=== PATIENT | female | born 1945 | race Caucasian/White ===

== ENCOUNTER 2018-08-23 19:14 | Emergency (ER) | payer MEDICARE, SELFPAY ==
[2018-06-13 10:06] VITALS: BMI 28.9
[2018-08-23 19:31] VITALS: BP 142/84; PULSE 86; RESP 18; TEMP 38.4; O2SAT 97
[2018-08-23 21:22] VITALS: TEMP 37.8
== END 2018-08-23 21:32 | disposition left against medical advice (07) ==
LOC: ED 19:22
PROVIDERS: Family Provider Physician Assistant; PCP Physician Assistant
DX: T78.40XA Allergy, unspecified, initial encounter (principal)
CPT/HCPCS: 99281; 99282; G0424

== ENCOUNTER → 2018-11-25 09:22 | Outpatient (CLI) | payer MEDICARE, SELFPAY ==
[2018-06-13 10:06] VITALS: BMI 28.9
--- NOTE | 2018-11-25 08:15 | DI.MG.S_ITS ---
Patient Name: NICOLE HUSTON date: 1945 Sex: F Attending Physician: Jase Indications: Date: 11/25/2018 09:36 At the request of: EVIN AUGUSTE Procedure: MM screening mammo BI BILATERAL DIGITAL SCREENING MAMMOGRAM 3D/2D WITH CAD: 11/25/2018 CLINICAL: Routine screening. Comparison is made to exams dated: 02/28/2017 mammogram - [facility], 2011 mammogram, and 02/23/2011 mammogram - [facility] [place]. There are scattered fibroglandular elements in both breasts. Current study was also evaluated with a Computer Aided Detection (CAD) system. No significant masses, calcifications, or other findings are seen in either breast. There has been no significant interval change. IMPRESSION: NEGATIVE There is no mammographic evidence of malignancy. A 1 year screening mammogram is recommended. This exam was interpreted at Station ID: [id number]. NOTE: For mammograms, a report in lay terms will be sent to the patient. Approximately 15% of breast malignancies will not be visualized mammographically. In the management of a palpable breast mass, a negative mammogram must not discourage biopsy of a clinically suspicious lesion. Electronically Signed By: James ramos/rohit:11/25/2018 14:18:19 letter sent: Normal Exam ACR BI-RADS Category 1: Negative [id number]
== END ==
PROVIDERS: PCP Internal Medicine; Visit Provider Internal Medicine
DX: Z12.31 Encounter for screening mammogram for malignant neoplasm of breast (principal)
CPT/HCPCS: 77063; 77067

== ENCOUNTER → 2019-03-15 13:03 | Outpatient (CLI) | payer MEDICARE, SELFPAY ==
[2018-06-13 10:06] VITALS: BMI 28.9
== END ==
PROVIDERS: PCP Internal Medicine; Visit Provider Internal Medicine
DX: M85.852 Other specified disorders of bone density and structure, left thigh (principal); Z78.0 Asymptomatic menopausal state; Z87.891 Personal history of nicotine dependence
CPT/HCPCS: 77080

== ENCOUNTER → 2019-07-09 14:05 | Outpatient (CLI) | payer MEDICARE, SELFPAY ==
[2018-06-13 10:06] VITALS: BMI 28.9
--- NOTE | 2019-07-09 14:07 | DI.RAD.S_ITS ---
PROCEDURE: XR HIP W PEL IF DONE RT 2V INDICATIONS: Right hip pain TECHNIQUE: 2 views of the hip were acquired. COMPARISON: [facility], CR, HIP 2V RIGHT, 12/15/2010, 12:20. FINDINGS: Bones: No fractures or dislocations. No suspicious bony lesions. The visualized pelvic ring appears intact. There is a 1 cm sclerotic radiodensity overlying the left iliac wing, uncertain etiology and clinical significance. Soft tissues: No suspicious soft tissue calcifications or masses. IMPRESSION: No acute trauma found. Minimal hip joint osteoarthritis. Ovoid 1 cm sclerotic focus left iliac wing, middle third, with no prior studies that include this area. This likely is a bone island. Followup frontal view of the pelvis in 2 months to confirm stability of appearance over time is recommended. Dictated by: Yamil Rucker M.D. on 07/09/2019 at 15:16 Approved by: Yamil Rucker M.D. on 07/09/2019 at 15:39
== END ==
PROVIDERS: PCP Internal Medicine; Visit Provider Physical Medicine & Rehabilitation
DX: M25.859 Other specified joint disorders, unspecified hip (principal); M16.11 Unilateral primary osteoarthritis, right hip
CPT/HCPCS: 73502

== ENCOUNTER 2020-01-02 08:25 | Day surgery (SDC) | payer MEDICARE, SELFPAY ==
[2018-06-13 10:06] VITALS: BMI 28.9
--- NOTE | 2020-01-01 16:46 | PM.PREOP ---
Pre-operative Note Interval Note History & Physical reviewed/Exam performed by Physician: Yes Changes to H&P: No H&P completed within 30 days and has changed as indicated here:: Patient initially asked for general anesthesia but she is willing to try a retrobulbar block with a laryngeal mask airway back as needed. She is very relaxed today and care will be taken reduce as effects of claustrophobia.
--- NOTE | 2020-01-02 08:08 | PM.OP.1 ---
Operative Date/Time/Diagnoses Date of procedure: 01/02/20 Time of procedure: 09:45 Procedure & Clinicians Procedure: Preoperative diagnoses: 1. Left nuclear sclerotic and cortical cataract. 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 3. Anxiety and claustrophobia which may requirie general anesthesia Postoperative diagnoses: 1. Cataract removed by phacoemulsification with placement of posterior chamber intraocular lens. Procedure: Phacoemulsification with posterior chamber intraocular lens implant Surgeon: Marce Laguna MD Complications: None Specimen: None Implant: ZCBOO+14.5] Blood loss: None Anesthesia: Retrobulbar block planned with general with laryngeal mask airway for by patient request. If needed. Description of procedure: Patient presents with a complaint of decreased vision due to cataract which is affecting activities of daily living. She is a myope who desires distance correction after discussion of -0.5 target is selected to reduce her dependency on reading glasses. The patient wants surgery to improve vision. She has claustrophobia but is comfortable today and would like to try a retrobulbar anesthetic. The patient was taken to the operating room and given IV sedation. A retrobulbar block consisting of 6 cc of 2% xylocaine without epinephrine mixed half and half with 0.5% Marcaine with 1 cc of hyaluronidase added is placed between the medial and lateral 1/3 of the inferior orbital rim. The eye is manually massaged for 30 sec, prepped using Betadine solution, and draped in the usual sterile fashion. Temporal approach was made, a 1 mm side-port incision was made 90? from the proposed clear corneal incision position. Phenylephrine 1.5% mixed with 1% xylocaine 0.2 cc was placed into the anterior chamber. Viscoat followed by Johanna was then placed. A 2.6 mm clear incision with a 2.6 mm blade was placed. A 360 degree capsulorrhexis style capsulotomy was then performed with a cystitome needle on a Healon. The pseudoexfoliation was significant and there was a pupillary strands but all sinus held intact and a nice capsulorrhexis resulted of about 5.5 mm. Hydrodelineation and hydrodissection were performed. The phacoemulsification unit is introduced, and sculpting notice used to groove the central lens. It is then removed in chopping mode. Epi nucleus is removed with epinuclear mode and irrigation aspiration was used to remove the peripheral cortex. The posterior capsule is polished. The intraocular lens is selected, inspected, power confirmed, and placed in the posterior chamber. The wound was stromally hydrated and tested for leaks, there was none and it was left sutureless. Vigamox 0.1 cc was placed into the anterior chamber. Kenalog 0.2 cc was placed in the superior subconjunctival space. A drop of antibiotic and was placed and the eye was patched and shielded. The patient was stable and returned to the recovery room in excellent condition. She was very cooperative during the procedure no general anesthetic was required. Dictated by: Marce Laguna MD Copy to: [facility] Same procedure as scheduled: Yes
[2020-01-02] MEDS: PROPARACAINE 0.5% OPHTH SOL 2 DROPS EYE-OP (09:01)
[2020-01-02] MEDS: CATARACT EYE COMPOUND (10 DROPS/SYRINGE) 3 DROPS EYE-OP (09:03)
[2020-01-02 09:10] VITALS: BP 138/73; PULSE 68; RESP 16; TEMP 36.6; O2SAT 99; BMI 29.2
--- NOTE | 2020-01-02 09:37 | SUR.OPER ---
Supine on eye stretcher, head on extension cradle secured with tape. Arms tucked at sides with blanket. Pillow under knees.
[2020-01-02] MEDS: LACTATED RINGERS 1,000 ML 42 ML IV (09:45)
[2020-01-02] MEDS: MOXIFLOXACIN INJ 5 MG/ML VIAL EYE-OP (10:25)
[2020-01-02] MEDS: PHENYLEPHRINE/LIDOCAINE VIAL (OR) 0.2 ML EYE-OP (10:27)
[2020-01-02] MEDS: LIDOCAINE 2% 4 ML, BUPIVACAINE 0.5% (PF) 4 ML, HYALURONIDASE 150 UNIT INJ (10:28)
[2020-01-02] MEDS: TRIAMCINOLONE 50 MG/5 ML VIAL INJ (10:32)
[2020-01-02] MEDS: BALANCED SALT IRRIG SOLN NO.2 500 ML, EPINEPHrine 1 MG IRR (10:41)
[2020-01-02] MEDS: ERYTHROMYCIN OPHTH 1 GM OINT 1 APPLIC EYE-LEFT (10:45)
[2020-01-02 11:10] VITALS: BP 151/75; PULSE 60; RESP 16; TEMP 36.3; O2SAT 100
== END 2020-01-02 11:15 | disposition home or self-care (01) ==
PROVIDERS: PCP Internal Medicine; Referring Provider Ophthalmology; Visit Provider Ophthalmology
PROC: (CPT 66984; principal; 2020-01-02 09:45)
DX: H25.812 Combined forms of age-related cataract, left eye (principal); H26.8 Other specified cataract; F41.9 Anxiety disorder, unspecified; F40.240 Claustrophobia
CPT/HCPCS: 66984; J0171; J2704; J3301; J3470

== ENCOUNTER 2020-01-16 07:26 | Day surgery (SDC) | payer MEDICARE, SELFPAY ==
[2018-06-13 10:06] VITALS: BMI 28.9
--- NOTE | 2020-01-15 18:59 | PM.PREOP ---
Pre-operative Note Interval Note History & Physical reviewed/Exam performed by Physician: Yes Changes to H&P: No
[2020-01-16] MEDS: PROPARACAINE 0.5% OPHTH SOL 2 DROPS EYE-OP (08:05)
--- NOTE | 2020-01-16 08:08 | P.OP_ITS ---
Operative Date/Time/Diagnoses Date of procedure: 01/16/20 Time of procedure: 08:45 Procedure & Clinicians Procedure: Preoperative diagnoses: 1. Left nuclear sclerotic and cortical cataract. Postoperative diagnoses: 1. Cataract removed by phacoemulsification with placement of posterior chamber intraocular lens. 2. Depression. Procedure: Phacoemulsification with posterior chamber intraocular lens implant Surgeon: Marce Laguna MD Complications: None Specimen: None Implant: ZCBOO+14.0 Blood loss: None Anesthesia: Retrobulbar with monitored standby Description of procedure: Patient presents with a complaint of decreased vision due to cataract which is affecting activities of daily living. The patient wants surgery to improve vision. The patient was taken to the operating room and given IV sedation. A retrobulbar block consisting of 6 cc of 2% xylocaine without epinephrine mixed half and half with 0.5% Marcaine with 1 cc of hyaluronidase added is placed between the medial and lateral 1/3 of the inferior orbital rim. The eye is manually massaged for 30 sec, prepped using Betadine solution, and draped in the usual sterile fashion. Temporal approach was made, a 1 mm side-port incision was made 90? from the proposed clear corneal incision position. Phenylephrine 1.5% mixed with 1% xylocaine 0.2 cc was placed into the anterior chamber. Viscoat followed by Johanna was then placed. A 2.6 mm clear incision with a 2.6 mm blade was placed. A 360 degree capsulorrhexis style capsulotomy was then performed with a cystitome needle on a Healon. Hydrodelineation and hydrodissection were performed. The phacoemulsification unit is introduced, and sculpting notice used to groove the central lens. It is then removed in chopping mode. Epi nucleus is removed with epinuclear mode and irrigation aspiration was used to remove the peripheral cortex. The posterior capsule is polished. The intraocular lens is selected, inspected, power confirmed, and placed in the posterior chamber. The wound was stromally hydrated and tested for leaks, there was none and it was left sutureless. Vigamox 0.1 cc was placed into the anterior chamber. Kenalog 0.2 cc was placed in the superior subconjunctival space. A drop of antibiotic and was placed and the eye was patched and shielded. The patient was stable and returned to the recovery room in excellent condition. Dictated by: Marce Laguna MD Copy to: [facility] Same procedure as scheduled: Yes
[2020-01-16 08:09] VITALS: BMI 28.6
[2020-01-16] MEDS: CATARACT EYE COMPOUND (10 DROPS/SYRINGE) 3 DROPS EYE-OP (08:09)
[2020-01-16 08:12] VITALS: BP 150/77; PULSE 69; RESP 15; TEMP 36.3; O2SAT 98
--- NOTE | 2020-01-16 08:58 | SUR.OPER ---
Supine on Padded OR bed, head on pillow, safety belt at thigh, arms secured on padded arm boards at <90 degrees abduction. Bump under right buttock. Legs uncrossed with pillow under knees, gel pad to heels, tape over blanket to lower legs.
[2020-01-16] MEDS: HYALURONATE SODIUM 10 MG/ML SYRINGE INJ (09:00)
[2020-01-16] MEDS: LIDOCAINE 2% 4 ML, BUPIVACAINE 0.5% (PF) 4 ML, HYALURONIDASE 150 UNIT INJ (09:00)
[2020-01-16] MEDS: CHONDROIDTIN/SOD HYALURONATE 1.05 ML SYRINGE INTRAOCULA (09:00)
[2020-01-16] MEDS: ERYTHROMYCIN OPHTH 1 GM OINT 1 APPLIC EYE-RIGHT (09:01)
[2020-01-16] MEDS: TRIAMCINOLONE 50 MG/5 ML VIAL INJ (09:02)
[2020-01-16] MEDS: PHENYLEPHRINE/LIDOCAINE VIAL (OR) 0.2 ML EYE-OP (09:02)
[2020-01-16] MEDS: MOXIFLOXACIN INJ 5 MG/ML VIAL EYE-OP (09:03)
[2020-01-16] MEDS: BALANCED SALT IRRIG SOLN NO.2 500 ML, EPINEPHrine 1 MG IRR (09:03)
[2020-01-16 09:37] VITALS: BP 128/76; PULSE 57; RESP 16; TEMP 35.8; O2SAT 16
== END 2020-01-16 09:39 | disposition home or self-care (01) ==
LOC: OR 07:30
PROVIDERS: PCP Internal Medicine; Referring Provider Internal Medicine; Visit Provider Ophthalmology
PROC: (CPT 66984; principal; 2020-01-16 08:45)
DX: H25.11 Age-related nuclear cataract, right eye (principal); F32.9 Major depressive disorder, single episode, unspecified
CPT/HCPCS: 66984; J0171; J2704; J3301; J3470

== ENCOUNTER 2020-01-23 14:07 | Emergency (ER) | payer OTHER, SELFPAY ==
[2018-06-13 10:06] VITALS: BMI 28.9
[2020-01-23 14:13] VITALS: BP 152/72; PULSE 79; RESP 14; TEMP 36.8; O2SAT 95; BMI 28.7
--- NOTE | 2020-01-23 14:34 | DI.RAD.S_ITS ---
PROCEDURE: XR CHEST 2V INDICATIONS: cough, hx asthma TECHNIQUE: 2 views of the chest were acquired. COMPARISON: [facility], , CHEST 2 VIEW, 02/24/2011, 8:45. FINDINGS: Surgical changes and devices: None. Lungs and pleura: Lungs are clear. No pleural effusions or pneumothorax. Mediastinum: Mediastinal contours are normal. Heart size is normal. Bones and chest wall: No suspicious bony abnormalities. Soft tissues appear unremarkable. IMPRESSION: No acute pulmonary process. Dictated by: Subha Nicholas M.D. on 01/23/2020 at 16:24 Approved by: Subha Nicholas M.D. on 01/23/2020 at 16:24
--- NOTE | 2020-01-23 14:53 | ED.URI ---
HPI - URI/Sore Throat <Letty Cleaning, SPONGE DIVER-BC - Last Filed: 01/23/20 18:25> General Chief Complaint: Upper Respiratory Symptoms Stated Complaint: COLD LIKE SYMPTOMS 99.8 TO 100 NOTHING HIGHER Time Seen by Provider: 01/23/20 14:28 Source: patient Mode of arrival: Ambulatory Limitations: no limitations History of Present Illness HPI Narrative: The patient is a 74-year-old female former smoker with history of asthma who presents with a chief complaint of worsening asthma and general malaise. She states that she started having increasing shortness of breath on Tuesday related to increased wheezing. She started using her albuterol inhaler that she has not used in several years. She denies any fevers, but states that she has had low-grade temperatures up to 100.0. She denies any abdominal pain nausea vomiting or diarrhea. She complains of ear pressure, no sore throat. She has not taken anything else home to feel better. She states her cough is productive. She does complain of some muscle aches and chills. She has no recent travel, no known contact with any [id number] patient's. Related Data Home Medications Medication Instructions Recorded Confirmed acetaminophen 500 mg tablet 1,000 mg PO Q6H PRN 07/09/19 01/16/20 bioflavonoids 1 tab PO DAILY 07/09/19 01/02/20 calcium 1 tab PO BID 07/09/19 01/02/20 omeprazole 20 mg capsule,delayed 20 mg PO BID 07/09/19 01/23/20 release acyclovir 400 mg PO DAILY 01/02/20 01/23/20 mometasone-formoterol [Dulera] 2 puff INHALATION DAILY 01/02/20 01/23/20 albuterol sulfate [Proventil HFA] 2 puff INH Q4-6H PRN 01/16/20 01/16/20 atorvastatin [Lipitor] 10 mg PO BEDTIME 01/23/20 01/23/20 ketorolac 1 drp OPHTHALMIC (EYE) DIRECTED 01/23/20 01/23/20 losartan [Cozaar] 50 mg PO DAILY 01/23/20 01/23/20 prednisolone acetate 1 drp OPHTHALMIC (EYE) DIRECTED 01/23/20 01/23/20 zolpidem 2.5 - 5 mg PO BEDTIME 01/23/20 01/23/20 Previous Rx's Medication Instructions Recorded [ESTRIOL/PROGES] 0 #45 01/10/17 inhalational spacing device #1 each 05/10/18 tramadol 50 mg tablet 50 mg PO TID PRN #30 tab 09/12/19 albuterol sulfate 2 puff INHALATION Q4-6H PRN #18 01/23/20 gram Allergies Allergy/AdvReac Type Severity Reaction Status Date / Time meloxicam Allergy Pitting Verified 01/23/20 14:13 Edema lisinopril AdvReac Mild COUGH Verified 01/23/20 14:13 Review of Systems <EVIE Redman - Last Filed: 01/23/20 18:25> Review of Systems Narrative: GENERAL: See HPI HEENT: See HPI RESPIRATORY: See HPI CARDIOVASCULAR: Denies chest pain, palpitations, orthopnea, edema, GASTROINTESTINAL: Denies nausea, vomiting, abdominal pain, diarrhea, constipation, melena. : Denies dysuria, frequency, incontinence, hematuria, urinary retention. MUSCULOSKELETAL: denies weakness, joint pain, or bony pain SKIN: Denies rash, skin lesions, or other NEUROLOGIC: Denies weakness, headache, numbness, change in speech, confusion, seizures, incoordination. PSYCHIATRIC: No concerning psychosocial issues. 12 point review of systems is negative except for those stated above Patient History <EVIE Redman - Last Filed: 01/23/20 18:25> Medical History Fragile skin (Acute) Surgical History Status post vaginal hysterectomy Family History Brother Diabetes mellitus Father Colon cancer Mother Colon cancer Social History household members: spouse Smoking Status: Former smoker Tobacco: How many years used: 1 alcohol intake: current Smoking Status: Former smoker alcohol intake frequency: 0-2 drinks per day Alcohol type: wine Substance Use Type: does not use Exam <EVIE Redman - Last Filed: 01/23/20 18:25> Narrative Exam Narrative: GENERAL: This is a well-nourished, well-developed patient, in no acute distress HEAD: Atraumatic. Normocephalic. No temporal or scalp tenderness. EYES: Pupils equal round and reactive. Extraocular motions intact. No scleral icterus. No injection or drainage. ENT: Nose without bleeding, purulent drainage or septal hematoma. Throat without erythema, tonsillar hypertrophy or exudate. Uvula midline. Airway patent. Bilateral TMs pearly bender. NECK: Trachea midline. No JVD or lymphadenopathy. Supple, nontender, no meningeal signs. CARDIOVASCULAR: Regular rate and rhythm without murmurs, gallops, or rubs. RESPIRATORY: Clear to auscultation. Breath sounds equal bilaterally. No wheezes, rales, or rhonchi. No cough. No increased respiratory effort. No accessory muscle use. GASTROINTESTINAL: Abdomen soft, non-tender, nondistended. No hepato-splenomegaly, or palpable masses. No guarding. Active bowel sounds all 4 quadrants for EXTREMITIES: No clubbing, cyanosis, or edema. No joint tenderness, effusion, or edema noted. BACK: Nontender without deformity or crepitance. No flank tenderness. NEURO: AOx3. SKIN: No rash or erythema. Initial Vital Signs Initial Vital Signs: Vital Signs Temperature 98.3 F 01/23/20 14:13 Pulse Rate 79 01/23/20 14:13 Respiratory Rate 14 01/23/20 14:13 Blood Pressure 152/72 H 01/23/20 14:13 Pulse Oximetry 95 01/23/20 14:13 <Elisa Clements MD - Last Filed: 01/25/20 03:11> Initial Vital Signs Initial Vital Signs: Vital Signs Temperature 98.3 F 01/23/20 14:13 Pulse Rate 79 01/23/20 14:13 Respiratory Rate 14 01/23/20 14:13 Blood Pressure 152/72 H 01/23/20 14:13 Pulse Oximetry 95 01/23/20 14:13 Scores <EVIE Redman - Last Filed: 01/23/20 18:25> GCS [place] coma scale eye opening: Spontaneous [place] coma scale verbal response: Orientated [place] coma scale motor response: Obey commands [place] coma scale total score: 15 Course <EVIE Redman - Last Filed: 01/23/20 18:25> Orders Ordered: Discontinued Medications Albuterol (Ventolin) 2.5 mg INH NOW ONE Stop: 01/23/20 16:35 Last Admin: 01/23/20 16:39 Dose: 2.5 mg Documented by: PATRICIA Vital Signs Vital signs: Vital Signs - 8 hr 01/23/20 14:13 01/23/20 15:00 01/23/20 16:00 Temperature 98.3 F Pulse Rate 79 73 74 Respiratory Rate 14 17 16 Blood Pressure 152/72 H Blood Pressure [Left Arm] 162/79 H 152/80 H Pulse Oximetry 95 96 97 01/23/20 17:15 Temperature Pulse Rate 78 Respiratory Rate 16 Blood Pressure Blood Pressure [Left Arm] Pulse Oximetry 98 <Elisa Clements MD - Last Filed: 01/25/20 03:11> Orders Ordered: Discontinued Medications Albuterol (Ventolin) 2.5 mg INH NOW ONE Stop: 01/23/20 16:35 Last Admin: 01/23/20 16:39 Dose: 2.5 mg Documented by: PATRICIA Vital Signs Vital signs: Vital Signs - 8 hr 01/23/20 14:13 01/23/20 15:00 01/23/20 16:00 Temperature 98.3 F Pulse Rate 79 73 74 Respiratory Rate 14 17 16 Blood Pressure 152/72 H Blood Pressure [Left Arm] 162/79 H 152/80 H Pulse Oximetry 95 96 97 01/23/20 17:15 Temperature Pulse Rate 78 Respiratory Rate 16 Blood Pressure Blood Pressure [Left Arm] Pulse Oximetry 98 MDM - URI/Sore Throat <EVIE Redman - Last Filed: 01/23/20 18:25> Lab Data Labs: Lab Results 01/23/20 Range/Units 15:10 Influenza A (RT-PCR) Flu a positive H (NEGATIVE) Influenza B (RT-PCR) Flu b negative (NEGATIVE) Imaging Data Chest x-ray: Radiologist's Impression: CAMACHO Rodrigez [id number] XRay Report Signed Patient: Katya Mancilla LMR#: [id number] : 6Acct:[id number] Age/Sex: 74 / FDate of Service: 03/11/20 Loc: ED Accession Number: [id number] Procedure: XR chest 2V Ordering Provider: Letty CleaningBC PROCEDURE: XR CHEST 2V INDICATIONS: cough, hx asthma TECHNIQUE: 2 views of the chest were acquired. COMPARISON: [facility], , CHEST 2 VIEW, 02/24/2011, 8:45. FINDINGS: Surgical changes and devices: None. Lungs and pleura: Lungs are clear. No pleural effusions or pneumothorax. Mediastinum: Mediastinal contours are normal. Heart size is normal. Bones and chest wall: No suspicious bony abnormalities. Soft tissues appear unremarkable. IMPRESSION: No acute pulmonary process. Dictated by: Subha Nicholas M.D. on 01/23/2020 at 16:24 Approved by: Subha Nicholas M.D. on 01/23/2020 at 16:24 [facility] Narrative Medical decision making narrative: The patient is a 74-year-old female who presents with a chief complaint of worsening asthma and cough. Chest x-ray shows no acute pneumonia. She test positive for influenza a, which is likely the cause of her symptoms. She was evaluated by respiratory therapist in the emergency department. She is hemodynamically stable. I did refill her prescription of albuterol as the 1 she is using is several years . She was given spacer instructed in the emergency department. The patient declined Tamiflu from the emergency department. I discussed at length rest, pushing fluids, following up with primary care provider. Patient has no questions or concerns upon discharge and states understanding of return precautions as well as follow-up care. <Elisa Clements MD - Last Filed: 01/25/20 03:11> Lab Data Labs: Lab Results 01/23/20 Range/Units 15:10 Influenza A (RT-PCR) Flu a positive H (NEGATIVE) Influenza B (RT-PCR) Flu b negative (NEGATIVE) Discharge Plan Departure Patient Disposition: Home Clinical Impression: Influenza Discharge Date/Time: 01/23/20 17:33 Instructions: How to Use a Metered-Dose Inhaler, DI for Influenza -- Adult Activity Restrictions/Additional Instructions: Thank you for trusting us with your care today. Your chest x-ray shows no evidence of pneumonia. I sent a prescription for an albuterol inhaler to [facility]. Please follow-up with primary care provider next few days. You did test positive for influenza A Please continue [id number] measures as needed and able. Please come back to the emergency department for any acute concerns Prescriptions: New albuterol sulfate 90 mcg/actuation HFA aerosol inhaler 2 puff INHALATION Q4-6H PRN (Reason: shortness of breath or wheezing) Qty: 18 RF: 0 No Action [ESTRIOL/PROGES] 0 Qty: 45 RF: 0 (DME) inhalational spacing device [E-Z Spacer] spacer See Dose Instructions .ROUTE .MEDSUPPLY Qty: 1 RF: 0 Dulera 200-5 mcg/actuation Hfa Aerosol Inhaler 2 puff INHALATION DAILY RF: 0 acyclovir 400 MG tablet 400 mg PO DAILY RF: 0 albuterol sulfate [Proventil HFA] 90 MCG/PUFF HFA aerosol inhaler 2 puff INH Q4-6H PRN (Reason: Dyspnea) RF: 0 ketorolac 0.5 % drops 1 drp ophthalmic (eye) DIRECTED RF: 0 prednisolone acetate 1 % drops,suspension 1 drp ophthalmic (eye) DIRECTED RF: 0 atorvastatin [Lipitor] 10 MG tablet 10 mg PO BEDTIME RF: 0 zolpidem 5 MG tablet 2.5 - 5 mg PO BEDTIME RF: 0 losartan [Cozaar] 100 MG tablet 50 mg PO DAILY RF: 0 omeprazole 20 mg capsule,delayed release(DR/EC) 20 mg PO BID RF: 0 calcium 1 tab PO BID RF: 0 acetaminophen [Tylenol Extra Strength] 500 mg tablet 1,000 mg PO Q6H PRN (Reason: Pain) RF: 0 bioflavonoids 1 tab PO DAILY RF: 0 tramadol 50 mg tablet 50 mg PO TID PRN (Reason: pain) Qty: 30 RF: 1 Referrals: Jono Laguna MD [Primary Care Provider] -
[2020-01-23 15:00] VITALS: BP 162/79; PULSE 73; RESP 17; O2SAT 96
[2020-01-23 15:48] LABS: Influenza A - CEPHEID Flu A POSITIVE (NEGATIVE); Influenza B - CEPHEID Flu B NEGATIVE (NEGATIVE)
[2020-01-23 16:00] VITALS: BP 152/80; PULSE 74; RESP 16; O2SAT 97
[2020-01-23] MEDS: ALBUTEROL 2.5 MG/3 ML NEB (ADULT) INH (16:39)
[2020-01-23 17:15] VITALS: PULSE 78; RESP 16; O2SAT 98
== END 2020-01-23 17:33 | disposition home or self-care (01) ==
PROVIDERS: Emergency Provider Nurse Practitioner Family; PCP Internal Medicine
DX: J10.1 Influenza due to other identified influenza virus with other respiratory manifestations (principal); R50.9 Fever, unspecified
CPT/HCPCS: 71046; 87502; 94640; 99283; 99284; J7613

== ENCOUNTER → 2020-06-16 07:42 | Outpatient (CLI) | payer MEDICARE, SELFPAY ==
[2018-06-13 10:06] VITALS: BMI 28.9
[2020-06-16 08:59] LABS: Add Manual Diff / Slide Review NO; Basophils Absolute Auto 0 /uL (0-100); Basophils Percent Auto 0.9 % (0-2); Eosinophils Absolute Auto 100 /uL (0-450); Eosinophils Percent Auto 2.3 % (2-4); Hematocrit 38.3 % (36-46); Hemoglobin 12.9 g/dL (12.0-16.0); Lymphocytes Absolute Auto 1400 /uL (1100-4500); Mean Corpuscular HGB Conc 33.7 % (30-36); Mean Corpuscular Hemoglobin 33.1 PG (26-34); Mean Corpuscular Volume 98.2 fL (80-100); Monocytes Absolute Auto 400 /uL (0-900); Neutrophils Absolute Auto 2700 /uL (1500-7000); Neutrophils Percent Auto 57.8 % (50-75); Platelet Count 211 X10^3/uL (150-400); Red Cell Distribution Width 12.7 % (11.6-14.8); White Blood Cell Count 4.6 X10^3/uL (4.5-11.0)
[2020-06-16 09:28] LABS: Alanine Aminotransferase 34 IU/L (<35); Albumin 4.3 g/dL (3.5-5.0); Albumin Globulin Ratio 1.7 (1.0-2.8); Alkaline Phosphatase 46 U/L (38-126); Aspartate Aminotransferase 37 IU/L (14-36); BUN Creatinine Ratio 24.4 (6-22); Bilirubin Total 0.5 mg/dL (0.2-1.3); Blood Urea Nitrogen 22 mg/dL (7-17); Calcium 9.7 mg/dL (8.4-10.2); Carbon Dioxide 27 mmol/L (22-32); Chloride 104 mmol/L (98-107); Cholesterol 226 mg/dL (140-199); Estimated Glomerular Filt Rate > 60.0 mL/min (>60); Globulin 2.5 g/dL (1.7-4.1); Glucose 120 mg/dL (80-110); HDL Cholesterol 66 mg/dL (40-60); HEMOLYSIS < 15 (0-50); LDL Cholesterol Calculated 143 mg/dL (<100); Potassium 4.9 mmol/L (3.4-5.1); Sodium 136 mmol/L (137-145); Total Protein 6.8 g/dL (6.3-8.2); Triglycerides 86 mg/dL (35-150)
[2020-06-16 10:10] LABS: Vitamin D 25 Hydroxy (D3) 35.3 ng/mL (30.0-100.0)
== END ==
PROVIDERS: PCP Physician Assistant; Referring Provider Physician Assistant; Visit Provider Physician Assistant
DX: E78.2 Mixed hyperlipidemia (principal); I10 Essential (primary) hypertension; R06.00 Dyspnea, unspecified; R42 Dizziness and giddiness
CPT/HCPCS: 36415; 80053; 80061; 82306; 85025

== ENCOUNTER → 2020-06-22 14:37 | Outpatient (CLI) | payer MEDICARE, SELFPAY ==
[2018-06-13 10:06] VITALS: BMI 28.9
[2020-06-23 23:29] LABS: COVID19 Sendout Not Detected (Not Detect)
== END ==
PROVIDERS: PCP Physician Assistant; Visit Provider Physician Assistant
DX: Z11.59 Encounter for screening for other viral diseases (principal)
CPT/HCPCS: 87635

== ENCOUNTER → 2020-06-25 07:43 | Outpatient (CLI) | payer MEDICARE, SELFPAY ==
[2018-06-13 10:06] VITALS: BMI 28.9
--- NOTE | 2020-06-25 14:38 | DI.NM.S_ITS ---
DATE OF SERVICE: 06/25/2020 PROCEDURE: Perfusion study. INDICATIONS: Shortness of breath, hypertension, hyperlipidemia. RADIOPHARMACEUTICAL: 27.0 millicurie technetium-99m Myoview IV was injected at stress and 11.5 millicurie technetium-99m Myoview IV was injected at rest. CARDIAC STRESS: Initially, patient walked on Des protocol. The patient walked for about 6 minutes 04 seconds, achieved 7 METS of workload, functional aerobic met -12% and had blunted heart rate response. The patient achieved 57% of target heart rate. Hence, exercise stress test was converted to Lexiscan stress test. The patient received IV Lexiscan as per standard protocol. Baseline rhythm was sinus with right bundle branch block. During second stage of exercise stress test at about 5:21 minutes, the patient had a five beat run of wide QRS tachycardia and then developed frequent PVCs, mostly monomorphic including bigeminy pattern. Occasional ventricular couplets. The patient felt shortness of breath and dizziness with PVCs. In recovery, patient had some PACs as well. No sustained ventricular tachycardia. No obvious ischemic changes. RAW DATA: There is a normal myocardial uptake. GATED STUDY: Stress LV ejection fraction 84% without any obvious wall motion abnormalities. Resting end-diastolic volume 85 mL. TID ratio is 0.71, which is within normal limits. Lung heart ratio 0.33, which is within normal limits. MYOCARDIAL PERFUSION SCAN: There was normal myocardial perfusion. CONCLUSION: This is a normal myocardial perfusion study. However, the patient has blunted heart rate response. She has underlying right bundle branch block with sinus rhythm. The patient achieved 57% of target heart rate. There is evidence of chronotropic incompetency. At about 5:21 minutes during exercise, the patient developed a five beat run of nonsustained ventricular tachycardia as well as frequent PVCs and occasional ventricular couplets. At that time patient was symptomatic with shortness of breath and dizziness. It got recovered in recovery. Some premature atrial contractions were seen as well. No obvious atrial fibrillation or sustained ventricular tachycardia seen. Correlate clinically. This patient will benefit with electrophysiologic evaluation as well. Katya Mancilla - LISSY/kelly/keisha doc#: [id number]/job#: [id number] dd: 06/25/2020 12:53:00 dt: 06/25/2020 14:31:00 DICTATING MD/COPIES TO: Yoselin Christine MD COPIES MNE: ANGEL;
== END ==
PROVIDERS: PCP Physician Assistant; Referring Provider Physician Assistant; Visit Provider Physician Assistant
DX: I45.10 Unspecified right bundle-branch block (principal); R06.00 Dyspnea, unspecified; R06.02 Shortness of breath; I10 Essential (primary) hypertension; E78.5 Hyperlipidemia, unspecified
CPT/HCPCS: 78452; 93017; A9502; J2785

== ENCOUNTER 2020-08-05 11:15 | Outpatient (RCR) | payer MEDICARE, SELFPAY ==
[2018-06-13 10:06] VITALS: BMI 28.9
--- NOTE | 2020-06-24 17:48 | PT.OIE ---
Current Diagnoses Other abnormalities of gait and mobility (06/24/20) Dizziness and giddiness (06/24/20) Past Medical History (Last Reviewed 01/23/20 @ 14:54 by EVIE Redman) Fragile skin (Acute) Past Surgical History (Last Reviewed 01/23/20 @ 14:54 by EVIE Redman) Status post vaginal hysterectomy Visit Care Team Role Provider Type Suly Griffin PA-C Attending Provider Advanced Customer Insight Analyst Primary Care Provider Referring Provider Specialty: Internal Medicine Address: [address] [place] [address] Email: [email or web address] Physical Therapy Initial Evaluation PT-OP-A Visit Information Start: 06/24/20 16:54 Freq: Status: Active Protocol: Document 06/24/20 17:04 HH (Rec: 06/24/20 17:48 [email or web address]) Out-Patient Physical Therapy Visit Information Visit Information Visit Type Initial Evaluation Visit Start Time 08:17 Visit Stop Time 09:00 Total Visit Minutes 43 Visit Number 1 Number of DIRECTOR OF DISTRIBUTION Visits 0 Evaluation Information Evaluation Date 06/24/20 PT-OP-B Current Condition Start: 06/24/20 16:54 Freq: Status: Active Protocol: Document 06/24/20 17:04 HH (Rec: 06/24/20 17:48 [email or web address]) Current Condition History of Current Condition Onset Date > 10 years ago Current Complaints poor balance, unsteady with gait History of Current Condition Pt is a 75 yo female here with c/o poor balance and unsteady gait. She stated it started > 10 years but it has been getting worse for the past few months. Pt denies any hx of fall within the past year. She tends to lose her balance with turns, getting up from chair, doing yard work and climbing ladder. She has to be careful with transitional movements but she denies lightheadiness/ dizziness/ spinning sensation. She tends to cruise around furniture and support as needed, and standing still or reading tends to help her symptoms. She also has difficulty doing tandem and single leg stance. Using vision and support from different surfaces have been very helpful to her. Pt stated that she had possible ear infection and multiple sinus infection which caused her painful ear pressure. Treatment Goals Patient/Caregiver Goals To be able to change my position without feeling the need to hang on to something. Personal Factors Other Personal Factors That May Effect Pt stated that she had Therapy/Recovery possible ear infection and multiple sinus infection which caused her painful ear pressure. PT-OP-C Subjective Start: 06/24/20 16:54 Freq: Status: Active Protocol: Document 06/24/20 17:04 (Rec: 06/24/20 17:48 [email or web address]) Patient Questionnaires Dizziness Handicap Inventory DHI Score 36 DHI Functional Impairment 20 to 39% Impaired (Score 20- 39) PT-OP-D Balance Start: 06/24/20 16:54 Freq: Status: Active Protocol: Document 06/24/20 17:04 (Rec: 06/24/20 17:48 [email or web address]) Balance Tests Reddy Balance Test Reddy Balance Test Score 45 Reddy Impairment Rating 1 to 19% Impaired (Score 45-55 ) Single Limb Standing Single Limb- Right 4 Single Limb- Left 3 Tandem Tandem Standing unable PT-OP-E Functional Tests Start: 06/24/20 16:54 Freq: Status: Active Protocol: Document 06/24/20 17:04 HH (Rec: 06/24/20 17:48 [email or web address]) Functional Tests Dynamic Gait Index (DGI) Score 20 DGI Impairment Rating 1 to <20% Impaired (Score 20- 23) PT-OP-G Mobility & Gait Start: 06/24/20 16:54 Freq: Status: Active Protocol: Document 06/24/20 17:04 (Rec: 06/24/20 17:48 [email or web address]) Stair Climbing Evaluation Devices Stair Climbing Assistive Devices None Technique/Endurance Stair Climbing Direction Ascend and Descend Stair Climbing Technique Step Over Step PT-OP-H Neuro Start: 06/24/20 16:54 Freq: Status: Active Protocol: Document 06/24/20 17:04 (Rec: 06/24/20 17:48 [email or web address]) Sensation Evaluation Gross Sensation Gross Sensation WNL Comments Summary Comments slight decreased sensation to LT at B heel Deep Tendon Reflex & Clonus Assessment Deep Tendon Reflex Bilateral Achilles Deep Tendon Reflex 2+ Normal Bilateral Patellar Deep Tendon Reflex 2+ Normal PT-OP-M Strength Start: 06/24/20 16:54 Freq: Status: Active Protocol: Document 06/24/20 17:04 (Rec: 06/24/20 17:48 [email or web address]) Hip Strength Hip Manual Muscle Testing Right Flexion (L2) 4+ Good+ Extension (S1) 4+ Good+ Abduction 4+ Good+ Adduction 4+ Good+ Left Flexion (L2) 4+ Good+ Extension (S1) 4+ Good+ Abduction 4+ Good+ Adduction 4+ Good+ Knee Strength Knee Manual Muscle Testing Right Flexion (S2) 4+ Good+ Extension (L3) 4+ Good+ Left Flexion (S2) 4+ Good+ Extension (L3) 4+ Good+ Ankle/Foot Strength Ankle and Foot Manual Muscle Testing Left Dorsiflexion (L4) 4+ Good+ Plantarflexion (S1) 4+ Good+ Right Dorsiflexion (L4) 4+ Good+ Plantarflexion (S1) 4+ Good+ PT-OP-O Vestibular Start: 06/24/20 16:54 Freq: Status: Active Protocol: Document 06/24/20 17:04 (Rec: 06/24/20 17:48 [email or web address]) Vestibular Assessment Visual Testing Smooth Pursuits Horizontal -ve Smooth Pursuits Vertical -ve Saccades Horizontal +ve (c/o dizziness) Saccades Vertical -ve Gaze Evoked Nystagmus With Fixation Positive Gaze Evoked Nystagmus Without Fixation Negative Vestibulo-Ocular Reflex (VOR1) Positive Comments Vestibular Comments nystagmus noted with VOR test (horizontal head turn) PT-OP-T Assessment and Plan Start: 06/24/20 16:54 Freq: Status: Active Protocol: Document 06/24/20 17:04 (Rec: 06/24/20 17:48 [email or web address]) Physical Therapy Assessment Rehab Potential Rehabilitation Potential Good Evaluation Complexity Number of Personal Factors/Comorbidities 1-2 Number of Body Systems Impaired 1-2 Clinical Presentation at Evaluation Stable Impairments Impairments Balance,Functional Activities, Functional Mobility,Gait, Vestibular Goals rotational movements Impairment pt shows LOB with any rotational movements Residential Goal (LTG) Pt will not experience LOB during transitional or rotational movements during daily activities such as climbing stairs, getting in & out of bed and doing yardwork. LTG Duration 8 weeks unsteady gait Impairment pt needs to find support often during gait Residential Goal (LTG) pt will improve her overall gait stability and balance so she does not need to surface cruising during ambulation. LTG Duration 8 weeks dizziness questionnaire Impairment pt scores 36 on dizziness questionnaire Residential Goal (LTG) Pt will score <19 on dizziness questionnaire to improve her balance and mobility LTG Duration 8 weeks Assessment Summary Assessment Pt is a 75 yo female here with c/o poor balance and unsteady gait. Upon assessment, pt shows WNL sensation, strength, ROM for LEs. Although pt does have poor balance with NBOS and single leg balance, pt tends to lose balance / feel dizzy with horizontal head turns, saccade and any quick transitional/ rotational movements. She also presents nystagmus during VOR test and her symptoms tend to resolve with fixation within 10 seconds. She also stated she has constant increased R ear pressure from previous sinus infection/ flu/ ear infection which possibly contribute to vestibular involvement for her balance issue. Pt will need further vestibular assessment from colleagues here in [facility] who are vestibular specialists. Pt will surely benefit from skilled therapy to address her aforementioned impairments in order for her to safely complete her daily tasks without risk of falling. Physical Therapy Plan Frequency and Duration Frequency of Treatment 2x/Week Duration of Treatment 8 weeks Plan of Care Start Date 06/24/20 Plan of Care End Date 08/23/20 Therapeutic Interventions Therapeutic Interventions Balance Training,Canalithic Repositioning,Gait Training, Home Exercise Program,Manual Therapy,Neuromuscular Re- education,Patient/Caregiver Education,Self-Care/Home Management,Therapeutic Activities,Therapeutic Exercises,Vestibular Rehabilitation Other Referrals/Consults Referrals/Consults Recommended Pt will need further vestibular assessment from colleagues here in [facility] who are vestibular specialists. Next Visit Focus/Plan Next Note Type Treatment Note Next Visit Plan need further vestibular assessment
--- NOTE | 2020-06-24 17:49 | PT.OPPOC ---
Physical, Occupational & Speech Therapy At [facility] Current Diagnoses Other abnormalities of gait and mobility (06/24/20) Dizziness and giddiness (06/24/20) Visit Care Team Role Provider Type Suly Griffin PA-C Attending Provider Advanced Film Critic Primary Care Provider Referring Provider Specialty: Internal Medicine Address: [address] [place] [address], [facility] Email: [email or web address] Plan Of Care PT-OP-T Assessment and Plan Start: 06/24/20 16:54 Freq: Status: Active Protocol: Document 06/24/20 17:04 (Rec: 06/24/20 17:48 [email or web address]) Physical Therapy Assessment Rehab Potential Rehabilitation Potential Good Evaluation Complexity Number of Personal Factors/Comorbidities 1-2 Number of Body Systems Impaired 1-2 Clinical Presentation at Evaluation Stable Impairments Impairments Balance,Functional Activities, Functional Mobility,Gait, Vestibular Goals rotational movements Impairment pt shows LOB with any rotational movements Er Medical Technician Goal (LTG) Pt will not experience LOB during transitional or rotational movements during daily activities such as climbing stairs, getting in & out of bed and doing yardwork. LTG Duration 8 weeks unsteady gait Impairment pt needs to find support often during gait Skilled Nursing Goal (LTG) pt will improve her overall gait stability and balance so she does not need to surface cruising during ambulation. LTG Duration 8 weeks dizziness questionnaire Impairment pt scores 36 on dizziness questionnaire Skilled Nursing Goal (LTG) Pt will score <19 on dizziness questionnaire to improve her balance and mobility LTG Duration 8 weeks Assessment Summary Assessment Pt is a 75 yo female here with c/o poor balance and unsteady gait. Upon assessment, pt shows WNL sensation, strength, ROM for LEs. Although pt does have poor balance with NBOS and single leg balance, pt tends to lose balance / feel dizzy with horizontal head turns, saccade and any quick transitional/ rotational movements. She also presents nystagmus during VOR test and her symptoms tend to resolve with fixation within 10 seconds. She also stated she has constant increased R ear pressure from previous sinus infection/ flu/ ear infection which possibly contribute to vestibular involvement for her balance issue. Pt will need further vestibular assessment from colleagues here in [facility] who are vestibular specialists. Pt will surely benefit from skilled therapy to address her aforementioned impairments in order for her to safely complete her daily tasks without risk of falling. Physical Therapy Plan Frequency and Duration Frequency of Treatment 2x/Week Duration of Treatment 8 weeks Plan of Care Start Date 06/24/20 Plan of Care End Date 08/23/20 Therapeutic Interventions Therapeutic Interventions Balance Training,Canalithic Repositioning,Gait Training, Home Exercise Program,Manual Therapy,Neuromuscular Re- education,Patient/Caregiver Education,Self-Care/Home Management,Therapeutic Activities,Therapeutic Exercises,Vestibular Rehabilitation Other Referrals/Consults Referrals/Consults Recommended Pt will need further vestibular assessment from colleagues here in [facility] who are vestibular specialists. Next Visit Focus/Plan Next Note Type Treatment Note Next Visit Plan need further vestibular assessment Plan of Care Dates Plan of Care Start Date 06/24/20 Plan of Care End Date 08/23/20 Electronically Signed by: Reba Spencer, PT 06/24/20 [id number] Please Sign and Return: I have reviewed this Plan of Care and certify that the skilled therapy services above are required to meet the patient?s needs. Physician Signature Date Printed Name and Credentials Clinical Instructor Signature Printed Name and Credentials
--- NOTE | 2020-07-08 17:52 | PT.OTN ---
Current Diagnoses Other abnormalities of gait and mobility (07/08/20) Dizziness and giddiness (07/08/20) Physical Therapy Treatment Note PT-OP-A Visit Information Start: 06/24/20 16:54 Freq: Status: Active Protocol: Document 07/08/20 12:00 DCW (Rec: 07/08/20 17:52 DCW [id number]) Out-Patient Physical Therapy Visit Information Visit Information Visit Type Treatment Note Visit Start Time 12:00 Visit Stop Time 12:45 Total Visit Minutes 45 Visit Number 2 Number of WILDLIFE REMOVAL SPECIALIST Visits 0 Evaluation Information Evaluation Date 06/24/20 PT-OP-B Current Condition Start: 06/24/20 16:54 Freq: Status: Active Protocol: Document 06/24/20 17:04 HH (Rec: 06/24/20 17:48 HH [email or web address]) Current Condition History of Current Condition Onset Date > 10 years ago Current Complaints poor balance, unsteady with gait History of Current Condition Pt is a 75 yo female here with c/o poor balance and unsteady gait. She stated it started > 10 years but it has been getting worse for the past few months. Pt denies any hx of fall within the past year. She tends to lose her balance with turns, getting up from chair, doing yard work and climbing ladder. She has to be careful with transitional movements but she denies lightheadiness/ dizziness/ spinning sensation. She tends to cruise around furniture and support as needed, and standing still or reading tends to help her symptoms. She also has difficulty doing tandem and single leg stance. Using vision and support from different surfaces have been very helpful to her. Pt stated that she had possible ear infection and multiple sinus infection which caused her painful ear pressure. Treatment Goals Patient/Caregiver Goals To be able to change my position without feeling the need to hang on to something. Personal Factors Other Personal Factors That May Effect Pt stated that she had Therapy/Recovery possible ear infection and multiple sinus infection which caused her painful ear pressure. PT-OP-C Subjective Start: 06/24/20 16:54 Freq: Status: Active Protocol: Document 07/08/20 12:00 DCW (Rec: 07/08/20 17:52 DCW [id number]) OP-PT Subjective Patient Comments Patient Comments I'm fine when I'm doing something like reading or doing the dishes, but whenever I'm up moving around, especially with head turns, I just feel like my internal level os not keeping me balanced. PT-OP-D Balance Start: 06/24/20 16:54 Freq: Status: Active Protocol: Document 06/24/20 17:04 HH (Rec: 06/24/20 17:48 [email or web address]) Balance Tests Reddy Balance Test Reddy Balance Test Score 45 Reddy Impairment Rating 1 to 19% Impaired (Score 45-55 ) Single Limb Standing Single Limb- Right 4 Single Limb- Left 3 Tandem Tandem Standing unable PT-OP-E Functional Tests Start: 06/24/20 16:54 Freq: Status: Active Protocol: Document 06/24/20 17:04 HH (Rec: 06/24/20 17:48 [email or web address]) Functional Tests Dynamic Gait Index (DGI) Score 20 DGI Impairment Rating 1 to <20% Impaired (Score 20- 23) PT-OP-G Mobility & Gait Start: 06/24/20 16:54 Freq: Status: Active Protocol: Document 06/24/20 17:04 HH (Rec: 06/24/20 17:48 [email or web address]) Stair Climbing Evaluation Devices Stair Climbing Assistive Devices None Technique/Endurance Stair Climbing Direction Ascend and Descend Stair Climbing Technique Step Over Step PT-OP-H Neuro Start: 06/24/20 16:54 Freq: Status: Active Protocol: Document 06/24/20 17:04 HH (Rec: 06/24/20 17:48 [email or web address]) Sensation Evaluation Gross Sensation Gross Sensation WNL Comments Summary Comments slight decreased sensation to LT at B heel Deep Tendon Reflex & Clonus Assessment Deep Tendon Reflex Bilateral Achilles Deep Tendon Reflex 2+ Normal Bilateral Patellar Deep Tendon Reflex 2+ Normal PT-OP-M Strength Start: 06/24/20 16:54 Freq: Status: Active Protocol: Document 06/24/20 17:04 HH (Rec: 06/24/20 17:48 [email or web address]) Hip Strength Hip Manual Muscle Testing Right Flexion (L2) 4+ Good+ Extension (S1) 4+ Good+ Abduction 4+ Good+ Adduction 4+ Good+ Left Flexion (L2) 4+ Good+ Extension (S1) 4+ Good+ Abduction 4+ Good+ Adduction 4+ Good+ Knee Strength Knee Manual Muscle Testing Right Flexion (S2) 4+ Good+ Extension (L3) 4+ Good+ Left Flexion (S2) 4+ Good+ Extension (L3) 4+ Good+ Ankle/Foot Strength Ankle and Foot Manual Muscle Testing Left Dorsiflexion (L4) 4+ Good+ Plantarflexion (S1) 4+ Good+ Right Dorsiflexion (L4) 4+ Good+ Plantarflexion (S1) 4+ Good+ PT-OP-O Vestibular Start: 06/24/20 16:54 Freq: Status: Active Protocol: Document 07/08/20 12:00 DCW (Rec: 07/08/20 12:45 DCW [id number]) Vestibular Assessment Auditory Tests Mcknight Test Within normal limits Rinne Test Negative Air Conduction Results Equal Visual Testing Smooth Pursuits Horizontal Negative Smooth Pursuits Vertical Negative Saccades Horizontal Subjective complaints Saccades Vertical Negative Gaze Evoked Nystagmus With Fixation Negative Gaze Evoked Nystagmus Without Fixation Negative Heave Test Positive Bilateral Thrust Head Positive Bilateral Cover/Uncover Test WNL Earnest String Test Impaired Convergence Test 38 cm DVA (Line Degradation) 4 Head Shake Negative Positional Testing Sidelying Test Negative Left,Negative Right Vestibular Function Tests Fukuda Test 55 degrees L rotation CTSIB Position 1 30 sec CTSIB Position 2 30 sec CTSIB Position 3 30 sec CTSIB Position 4 30 sec CTSIB Position 5 30 sec CTSIB Position 6 7 sec PT-OP-Q Treatments Start: 06/24/20 16:54 Freq: Status: Active Protocol: Document 07/08/20 12:00 DCW (Rec: 07/08/20 17:52 MNW [id number]) Neuro Re-Education Treatment Vestibular Rehabilitation 1 Details Pencil Push-ups Distance From Target as tolerated Position Seated Other Activities 1 Details Vestibular testing PT-OP-T Assessment and Plan Start: 06/24/20 16:54 Freq: Status: Active Protocol: Document 07/08/20 12:00 DCW (Rec: 07/08/20 17:52 [facility] [id number]) Physical Therapy Assessment Impairments Impairments Balance,Functional Activities, Functional Mobility,Gait, Vestibular Goals rotational movements Impairment pt shows LOB with any rotational movements Relationship Counselor Goal (LTG) Pt will not experience LOB during transitional or rotational movements during daily activities such as climbing stairs, getting in & out of bed and doing yardwork. LTG Duration 8 weeks unsteady gait Impairment pt needs to find support often during gait Relationship Counselor Goal (LTG) pt will improve her overall gait stability and balance so she does not need to surface cruising during ambulation. LTG Duration 8 weeks dizziness questionnaire Impairment pt scores 36 on dizziness questionnaire Usp Goal (LTG) Pt will score <19 on dizziness questionnaire to improve her balance and mobility LTG Duration 8 weeks Assessment Summary Assessment Pt underwent continued vestibular and balance assessment today. Overall, pt' s vestibular testing showed fairly mild bilateral vestibular loss, which is fairly standard for her age group. Pt did struggle using Earnest String, unable to focus on either of the closest two beads, seeing double at all times, as well as reported diplopia of target during convergence testing when 40 cm away from nose, 10x farther than the distance that would be considered WNL. 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 Pt should benefit from generalized balance training, as well as oculomotor exercises, specifically focusing on convergence training. Physical Therapy Plan Frequency and Duration Frequency of Treatment 2x/Week Duration of Treatment 8 weeks Plan of Care Start Date 06/24/20 Plan of Care End Date 08/23/20 Therapeutic Interventions Therapeutic Interventions Balance Training,Canalithic Repositioning,Gait Training, Home Exercise Program,Manual Therapy,Neuromuscular Re- education,Patient/Caregiver Education,Self-Care/Home Management,Therapeutic Activities,Therapeutic Exercises,Vestibular Rehabilitation Next Visit Focus/Plan Next Note Type Treatment Note Next Visit Plan Oculomotor/Convergence exercises, Balance training
--- NOTE | 2020-07-14 12:04 | PT.OTN ---
Current Diagnoses Other abnormalities of gait and mobility (07/14/20) Dizziness and giddiness (07/14/20) Physical Therapy Treatment Note PT-OP-A Visit Information Start: 06/24/20 16:54 Freq: Status: Active Protocol: Document 07/14/20 11:17 DCW (Rec: 07/14/20 12:04 DCW [id number]) Out-Patient Physical Therapy Visit Information Visit Information Visit Type Treatment Note Visit Start Time 11:17 Visit Stop Time 12:00 Total Visit Minutes 43 Visit Number 3 Number of WELDER PIPE MAKING Visits 0 Evaluation Information Evaluation Date 06/24/20 PT-OP-B Current Condition Start: 06/24/20 16:54 Freq: Status: Active Protocol: Document 06/24/20 17:04 HH (Rec: 06/24/20 17:48 HH [email or web address]) Current Condition History of Current Condition Onset Date > 10 years ago Current Complaints poor balance, unsteady with gait History of Current Condition Pt is a 75 yo female here with c/o poor balance and unsteady gait. She stated it started > 10 years but it has been getting worse for the past few months. Pt denies any hx of fall within the past year. She tends to lose her balance with turns, getting up from chair, doing yard work and climbing ladder. She has to be careful with transitional movements but she denies lightheadiness/ dizziness/ spinning sensation. She tends to cruise around furniture and support as needed, and standing still or reading tends to help her symptoms. She also has difficulty doing tandem and single leg stance. Using vision and support from different surfaces have been very helpful to her. Pt stated that she had possible ear infection and multiple sinus infection which caused her painful ear pressure. Treatment Goals Patient/Caregiver Goals To be able to change my position without feeling the need to hang on to something. Personal Factors Other Personal Factors That May Effect Pt stated that she had Therapy/Recovery possible ear infection and multiple sinus infection which caused her painful ear pressure. PT-OP-C Subjective Start: 06/24/20 16:54 Freq: Status: Active Protocol: Document 07/14/20 11:17 DCW (Rec: 07/14/20 12:04 DCW [id number]) OP-PT Subjective Patient Comments Patient Comments I am able to regain my focus on the pencil much sooner when it splits in two. PT-OP-D Balance Start: 06/24/20 16:54 Freq: Status: Active Protocol: Document 06/24/20 17:04 HH (Rec: 06/24/20 17:48 [email or web address]) Balance Tests Reddy Balance Test Reddy Balance Test Score 45 Reddy Impairment Rating 1 to 19% Impaired (Score 45-55 ) Single Limb Standing Single Limb- Right 4 Single Limb- Left 3 Tandem Tandem Standing unable PT-OP-E Functional Tests Start: 06/24/20 16:54 Freq: Status: Active Protocol: Document 06/24/20 17:04 HH (Rec: 06/24/20 17:48 [email or web address]) Functional Tests Dynamic Gait Index (DGI) Score 20 DGI Impairment Rating 1 to <20% Impaired (Score 20- 23) PT-OP-G Mobility & Gait Start: 06/24/20 16:54 Freq: Status: Active Protocol: Document 06/24/20 17:04 HH (Rec: 06/24/20 17:48 [email or web address]) Stair Climbing Evaluation Devices Stair Climbing Assistive Devices None Technique/Endurance Stair Climbing Direction Ascend and Descend Stair Climbing Technique Step Over Step PT-OP-H Neuro Start: 06/24/20 16:54 Freq: Status: Active Protocol: Document 06/24/20 17:04 HH (Rec: 06/24/20 17:48 [email or web address]) Sensation Evaluation Gross Sensation Gross Sensation WNL Comments Summary Comments slight decreased sensation to LT at B heel Deep Tendon Reflex & Clonus Assessment Deep Tendon Reflex Bilateral Achilles Deep Tendon Reflex 2+ Normal Bilateral Patellar Deep Tendon Reflex 2+ Normal PT-OP-M Strength Start: 06/24/20 16:54 Freq: Status: Active Protocol: Document 06/24/20 17:04 HH (Rec: 06/24/20 17:48 [email or web address]) Hip Strength Hip Manual Muscle Testing Right Flexion (L2) 4+ Good+ Extension (S1) 4+ Good+ Abduction 4+ Good+ Adduction 4+ Good+ Left Flexion (L2) 4+ Good+ Extension (S1) 4+ Good+ Abduction 4+ Good+ Adduction 4+ Good+ Knee Strength Knee Manual Muscle Testing Right Flexion (S2) 4+ Good+ Extension (L3) 4+ Good+ Left Flexion (S2) 4+ Good+ Extension (L3) 4+ Good+ Ankle/Foot Strength Ankle and Foot Manual Muscle Testing Left Dorsiflexion (L4) 4+ Good+ Plantarflexion (S1) 4+ Good+ Right Dorsiflexion (L4) 4+ Good+ Plantarflexion (S1) 4+ Good+ PT-OP-O Vestibular Start: 06/24/20 16:54 Freq: Status: Active Protocol: Document 07/08/20 12:00 DCW (Rec: 07/08/20 12:45 DCW [id number]) Vestibular Assessment Auditory Tests Mcknight Test Within normal limits Rinne Test Negative Air Conduction Results Equal Visual Testing Smooth Pursuits Horizontal Negative Smooth Pursuits Vertical Negative Saccades Horizontal Subjective complaints Saccades Vertical Negative Gaze Evoked Nystagmus With Fixation Negative Gaze Evoked Nystagmus Without Fixation Negative Heave Test Positive Bilateral Thrust Head Positive Bilateral Cover/Uncover Test WNL Earnest String Test Impaired Convergence Test 38 cm DVA (Line Degradation) 4 Head Shake Negative Positional Testing Sidelying Test Negative Left,Negative Right Vestibular Function Tests Fukuda Test 55 degrees L rotation CTSIB Position 1 30 sec CTSIB Position 2 30 sec CTSIB Position 3 30 sec CTSIB Position 4 30 sec CTSIB Position 5 30 sec CTSIB Position 6 7 sec PT-OP-Q Treatments Start: 06/24/20 16:54 Freq: Status: Active Protocol: Document 07/14/20 11:17 DCW (Rec: 07/14/20 12:04 DCW [id number]) Neuro Re-Education Treatment Vestibular Rehabilitation Corrective Saccades Details Eyes, then head Distance From Target Arms length Speed as tolerated Position Seated X2 Viewing Details Moving target/head in opposite directions Distance From Target Arms length Speed as tolerated Position Seated X1 Viewing Details Head moving, target still Distance From Target Arms length Speed as tolerated Position Seated VOR Retraining Details Head/target moving together Distance From Target Arms length Speed as tolerated Position Seated 1 Details Pencil Push-ups Distance From Target as tolerated Position Seated PT-OP-T Assessment and Plan Start: 06/24/20 16:54 Freq: Status: Active Protocol: Document 07/14/20 11:17 DCW (Rec: 07/14/20 12:04 DCW [id number]) Physical Therapy Assessment Impairments Impairments Balance,Functional Activities, Functional Mobility,Gait, Vestibular Goals rotational movements Impairment pt shows LOB with any rotational movements Design Technology Teacher Goal (LTG) Pt will not experience LOB during transitional or rotational movements during daily activities such as climbing stairs, getting in & out of bed and doing yardwork. LTG Duration 8 weeks unsteady gait Impairment pt needs to find support often during gait Design Technology Teacher Goal (LTG) pt will improve her overall gait stability and balance so she does not need to surface cruising during ambulation. LTG Duration 8 weeks dizziness questionnaire Impairment pt scores 36 on dizziness questionnaire Nursing Home Goal (LTG) Pt will score <19 on dizziness questionnaire to improve her balance and mobility LTG Duration 8 weeks Assessment Summary Assessment Pt had some substantial difficulty performing oculomotor exercises, required repeated verbal cues, will benefit greatly from addition of these exercises to HEP. Physical Therapy Plan Frequency and Duration Frequency of Treatment 2x/Week Duration of Treatment 8 weeks Plan of Care Start Date 06/24/20 Plan of Care End Date 08/23/20 Therapeutic Interventions Therapeutic Interventions Balance Training,Canalithic Repositioning,Gait Training, Home Exercise Program,Manual Therapy,Neuromuscular Re- education,Patient/Caregiver Education,Self-Care/Home Management,Therapeutic Activities,Therapeutic Exercises,Vestibular Rehabilitation Next Visit Focus/Plan Next Note Type Treatment Note Next Visit Plan Oculomotor/Convergence exercises, Balance training
--- NOTE | 2020-07-25 09:50 | PT.OTN ---
Current Diagnoses Other abnormalities of gait and mobility (07/25/20) Dizziness and giddiness (07/25/20) Physical Therapy Treatment Note PT-OP-A Visit Information Start: 06/24/20 16:54 Freq: Status: Active Protocol: Document 07/25/20 09:00 DCW (Rec: 07/25/20 09:50 DCW [id number]) Out-Patient Physical Therapy Visit Information Visit Information Visit Type Treatment Note Visit Start Time 09:00 Visit Stop Time 09:45 Total Visit Minutes 45 Visit Number 4 Number of AIRCRAFT AVIONICS TECHNICIAN Visits 0 Evaluation Information Evaluation Date 06/24/20 PT-OP-B Current Condition Start: 06/24/20 16:54 Freq: Status: Active Protocol: Document 06/24/20 17:04 HH (Rec: 06/24/20 17:48 HH [email or web address]) Current Condition History of Current Condition Onset Date > 10 years ago Current Complaints poor balance, unsteady with gait History of Current Condition Pt is a 75 yo female here with c/o poor balance and unsteady gait. She stated it started > 10 years but it has been getting worse for the past few months. Pt denies any hx of fall within the past year. She tends to lose her balance with turns, getting up from chair, doing yard work and climbing ladder. She has to be careful with transitional movements but she denies lightheadiness/ dizziness/ spinning sensation. She tends to cruise around furniture and support as needed, and standing still or reading tends to help her symptoms. She also has difficulty doing tandem and single leg stance. Using vision and support from different surfaces have been very helpful to her. Pt stated that she had possible ear infection and multiple sinus infection which caused her painful ear pressure. Treatment Goals Patient/Caregiver Goals To be able to change my position without feeling the need to hang on to something. Personal Factors Other Personal Factors That May Effect Pt stated that she had Therapy/Recovery possible ear infection and multiple sinus infection which caused her painful ear pressure. PT-OP-C Subjective Start: 06/24/20 16:54 Freq: Status: Active Protocol: Document 07/25/20 09:00 DCW (Rec: 07/25/20 09:50 DCW [id number]) OP-PT Subjective Patient Comments Patient Comments To be honest with you, the muscle in my eye was so sore after the pencil push-ups, I needed to put ice on it. I do think my balance has actually been better. PT-OP-D Balance Start: 06/24/20 16:54 Freq: Status: Active Protocol: Document 06/24/20 17:04 (Rec: 06/24/20 17:48 [email or web address]) Balance Tests Reddy Balance Test Reddy Balance Test Score 45 Reddy Impairment Rating 1 to 19% Impaired (Score 45-55 ) Single Limb Standing Single Limb- Right 4 Single Limb- Left 3 Tandem Tandem Standing unable PT-OP-E Functional Tests Start: 06/24/20 16:54 Freq: Status: Active Protocol: Document 06/24/20 17:04 HH (Rec: 06/24/20 17:48 [email or web address]) Functional Tests Dynamic Gait Index (DGI) Score 20 DGI Impairment Rating 1 to <20% Impaired (Score 20- 23) PT-OP-G Mobility & Gait Start: 06/24/20 16:54 Freq: Status: Active Protocol: Document 06/24/20 17:04 HH (Rec: 06/24/20 17:48 [email or web address]) Stair Climbing Evaluation Devices Stair Climbing Assistive Devices None Technique/Endurance Stair Climbing Direction Ascend and Descend Stair Climbing Technique Step Over Step PT-OP-H Neuro Start: 06/24/20 16:54 Freq: Status: Active Protocol: Document 06/24/20 17:04 HH (Rec: 06/24/20 17:48 [email or web address]) Sensation Evaluation Gross Sensation Gross Sensation WNL Comments Summary Comments slight decreased sensation to LT at B heel Deep Tendon Reflex & Clonus Assessment Deep Tendon Reflex Bilateral Achilles Deep Tendon Reflex 2+ Normal Bilateral Patellar Deep Tendon Reflex 2+ Normal PT-OP-M Strength Start: 06/24/20 16:54 Freq: Status: Active Protocol: Document 06/24/20 17:04 HH (Rec: 06/24/20 17:48 [email or web address]) Hip Strength Hip Manual Muscle Testing Right Flexion (L2) 4+ Good+ Extension (S1) 4+ Good+ Abduction 4+ Good+ Adduction 4+ Good+ Left Flexion (L2) 4+ Good+ Extension (S1) 4+ Good+ Abduction 4+ Good+ Adduction 4+ Good+ Knee Strength Knee Manual Muscle Testing Right Flexion (S2) 4+ Good+ Extension (L3) 4+ Good+ Left Flexion (S2) 4+ Good+ Extension (L3) 4+ Good+ Ankle/Foot Strength Ankle and Foot Manual Muscle Testing Left Dorsiflexion (L4) 4+ Good+ Plantarflexion (S1) 4+ Good+ Right Dorsiflexion (L4) 4+ Good+ Plantarflexion (S1) 4+ Good+ PT-OP-O Vestibular Start: 06/24/20 16:54 Freq: Status: Active Protocol: Document 07/08/20 12:00 DCW (Rec: 07/08/20 12:45 DCW [id number]) Vestibular Assessment Auditory Tests Mcknight Test Within normal limits Rinne Test Negative Air Conduction Results Equal Visual Testing Smooth Pursuits Horizontal Negative Smooth Pursuits Vertical Negative Saccades Horizontal Subjective complaints Saccades Vertical Negative Gaze Evoked Nystagmus With Fixation Negative Gaze Evoked Nystagmus Without Fixation Negative Heave Test Positive Bilateral Thrust Head Positive Bilateral Cover/Uncover Test WNL Earnest String Test Impaired Convergence Test 38 cm DVA (Line Degradation) 4 Head Shake Negative Positional Testing Sidelying Test Negative Left,Negative Right Vestibular Function Tests Fukuda Test 55 degrees L rotation CTSIB Position 1 30 sec CTSIB Position 2 30 sec CTSIB Position 3 30 sec CTSIB Position 4 30 sec CTSIB Position 5 30 sec CTSIB Position 6 7 sec PT-OP-Q Treatments Start: 06/24/20 16:54 Freq: Status: Active Protocol: Document 07/25/20 09:00 DCW (Rec: 07/25/20 09:50 DCW [id number]) Gym Equipment Shuttle Balance Red Details WBOS (Ball Toss), Staggered Stance Neuro Re-Education Treatment Balance Activities SLS Details SLS [place] Chart Details Straight reading while on Trampoline Tandem Amb Details Tandem amb /c X1 viewing Comments Fwd/Bkwd Vestibular Rehabilitation 2 Details Tennis ball tracking Comments Catch tennis balls X2 Viewing Details Moving target/head in opposite directions Distance From Target Arms length Speed as tolerated Position Seated X1 Viewing Details Head moving, target still Distance From Target Arms length Speed as tolerated Position Seated Comments Seated and Standing 1 Details Pencil Push-ups Distance From Target as tolerated Position Seated PT-OP-T Assessment and Plan Start: 06/24/20 16:54 Freq: Status: Active Protocol: Document 07/25/20 09:00 DCW (Rec: 07/25/20 09:50 DCW [id number]) Physical Therapy Assessment Impairments Impairments Balance,Functional Activities, Functional Mobility,Gait, Vestibular Goals rotational movements Impairment pt shows LOB with any rotational movements Conventions Assistant Goal (LTG) Pt will not experience LOB during transitional or rotational movements during daily activities such as climbing stairs, getting in & out of bed and doing yardwork. LTG Duration 8 weeks unsteady gait Impairment pt needs to find support often during gait Fdc Goal (LTG) pt will improve her overall gait stability and balance so she does not need to surface cruising during ambulation. LTG Duration 8 weeks dizziness questionnaire Impairment pt scores 36 on dizziness questionnaire Fdc Goal (LTG) Pt will score <19 on dizziness questionnaire to improve her balance and mobility LTG Duration 8 weeks Assessment Summary Assessment Pt showing great progress so far, performing her oculomotor exercises with much more ease , tolerating challenges to balance with minimal difficulty. Continue current HEP. Physical Therapy Plan Frequency and Duration Frequency of Treatment 2x/Week Duration of Treatment 8 weeks Plan of Care Start Date 06/24/20 Plan of Care End Date 08/23/20 Therapeutic Interventions Therapeutic Interventions Balance Training,Canalithic Repositioning,Gait Training, Home Exercise Program,Manual Therapy,Neuromuscular Re- education,Patient/Caregiver Education,Self-Care/Home Management,Therapeutic Activities,Therapeutic Exercises,Vestibular Rehabilitation Next Visit Focus/Plan Next Note Type Treatment Note Next Visit Plan Oculomotor/Convergence exercises, Balance training
--- NOTE | 2020-07-29 15:58 | PT.OTN ---
Current Diagnoses Other abnormalities of gait and mobility (07/29/20) Dizziness and giddiness (07/29/20) Physical Therapy Treatment Note PT-OP-A Visit Information Start: 06/24/20 16:54 Freq: Status: Active Protocol: Document 07/29/20 15:15 DCW (Rec: 07/29/20 15:58 DCW [id number]) Out-Patient Physical Therapy Visit Information Visit Information Visit Type Treatment Note Visit Start Time 15:15 Visit Stop Time 16:00 Total Visit Minutes 45 Visit Number 5 Number of CONTINUITY WRITER Visits 0 Evaluation Information Evaluation Date 06/24/20 PT-OP-B Current Condition Start: 06/24/20 16:54 Freq: Status: Active Protocol: Document 06/24/20 17:04 HH (Rec: 06/24/20 17:48 HH [email or web address]) Current Condition History of Current Condition Onset Date > 10 years ago Current Complaints poor balance, unsteady with gait History of Current Condition Pt is a 75 yo female here with c/o poor balance and unsteady gait. She stated it started > 10 years but it has been getting worse for the past few months. Pt denies any hx of fall within the past year. She tends to lose her balance with turns, getting up from chair, doing yard work and climbing ladder. She has to be careful with transitional movements but she denies lightheadiness/ dizziness/ spinning sensation. She tends to cruise around furniture and support as needed, and standing still or reading tends to help her symptoms. She also has difficulty doing tandem and single leg stance. Using vision and support from different surfaces have been very helpful to her. Pt stated that she had possible ear infection and multiple sinus infection which caused her painful ear pressure. Treatment Goals Patient/Caregiver Goals To be able to change my position without feeling the need to hang on to something. Personal Factors Other Personal Factors That May Effect Pt stated that she had Therapy/Recovery possible ear infection and multiple sinus infection which caused her painful ear pressure. PT-OP-C Subjective Start: 06/24/20 16:54 Freq: Status: Active Protocol: Document 07/29/20 15:15 DCW (Rec: 07/29/20 15:58 DCW [id number]) OP-PT Subjective Patient Comments Patient Comments I think it's very subtle, but I think it's working. PT-OP-D Balance Start: 06/24/20 16:54 Freq: Status: Active Protocol: Document 06/24/20 17:04 HH (Rec: 06/24/20 17:48 [email or web address]) Balance Tests Reddy Balance Test Reddy Balance Test Score 45 Reddy Impairment Rating 1 to 19% Impaired (Score 45-55 ) Single Limb Standing Single Limb- Right 4 Single Limb- Left 3 Tandem Tandem Standing unable PT-OP-E Functional Tests Start: 06/24/20 16:54 Freq: Status: Active Protocol: Document 06/24/20 17:04 HH (Rec: 06/24/20 17:48 [email or web address]) Functional Tests Dynamic Gait Index (DGI) Score 20 DGI Impairment Rating 1 to <20% Impaired (Score 20- 23) PT-OP-G Mobility & Gait Start: 06/24/20 16:54 Freq: Status: Active Protocol: Document 06/24/20 17:04 HH (Rec: 06/24/20 17:48 [email or web address]) Stair Climbing Evaluation Devices Stair Climbing Assistive Devices None Technique/Endurance Stair Climbing Direction Ascend and Descend Stair Climbing Technique Step Over Step PT-OP-H Neuro Start: 06/24/20 16:54 Freq: Status: Active Protocol: Document 06/24/20 17:04 HH (Rec: 06/24/20 17:48 [email or web address]) Sensation Evaluation Gross Sensation Gross Sensation WNL Comments Summary Comments slight decreased sensation to LT at B heel Deep Tendon Reflex & Clonus Assessment Deep Tendon Reflex Bilateral Achilles Deep Tendon Reflex 2+ Normal Bilateral Patellar Deep Tendon Reflex 2+ Normal PT-OP-M Strength Start: 06/24/20 16:54 Freq: Status: Active Protocol: Document 06/24/20 17:04 HH (Rec: 06/24/20 17:48 [email or web address]) Hip Strength Hip Manual Muscle Testing Right Flexion (L2) 4+ Good+ Extension (S1) 4+ Good+ Abduction 4+ Good+ Adduction 4+ Good+ Left Flexion (L2) 4+ Good+ Extension (S1) 4+ Good+ Abduction 4+ Good+ Adduction 4+ Good+ Knee Strength Knee Manual Muscle Testing Right Flexion (S2) 4+ Good+ Extension (L3) 4+ Good+ Left Flexion (S2) 4+ Good+ Extension (L3) 4+ Good+ Ankle/Foot Strength Ankle and Foot Manual Muscle Testing Left Dorsiflexion (L4) 4+ Good+ Plantarflexion (S1) 4+ Good+ Right Dorsiflexion (L4) 4+ Good+ Plantarflexion (S1) 4+ Good+ PT-OP-O Vestibular Start: 06/24/20 16:54 Freq: Status: Active Protocol: Document 07/08/20 12:00 DCW (Rec: 07/08/20 12:45 DCW [id number]) Vestibular Assessment Auditory Tests Mcknight Test Within normal limits Rinne Test Negative Air Conduction Results Equal Visual Testing Smooth Pursuits Horizontal Negative Smooth Pursuits Vertical Negative Saccades Horizontal Subjective complaints Saccades Vertical Negative Gaze Evoked Nystagmus With Fixation Negative Gaze Evoked Nystagmus Without Fixation Negative Heave Test Positive Bilateral Thrust Head Positive Bilateral Cover/Uncover Test WNL Earnest String Test Impaired Convergence Test 38 cm DVA (Line Degradation) 4 Head Shake Negative Positional Testing Sidelying Test Negative Left,Negative Right Vestibular Function Tests Fukuda Test 55 degrees L rotation CTSIB Position 1 30 sec CTSIB Position 2 30 sec CTSIB Position 3 30 sec CTSIB Position 4 30 sec CTSIB Position 5 30 sec CTSIB Position 6 7 sec PT-OP-Q Treatments Start: 06/24/20 16:54 Freq: Status: Active Protocol: Document 07/29/20 15:15 DCW (Rec: 07/29/20 15:58 DCW [id number]) Gym Equipment Shuttle Balance Red Details WBOS (Ball Toss), Staggered Stance Neuro Re-Education Treatment Balance Activities Tandem Stance Details Tandem Stance SLS Details SLS Tandem Amb Details Tandem amb /c X1 viewing Comments Fwd/Bkwd Vestibular Rehabilitation 2 Details Tennis ball tracking Comments Catch tennis balls 1 Details Pencil Push-ups, Earnest String Distance From Target as tolerated Position Seated PT-OP-T Assessment and Plan Start: 06/24/20 16:54 Freq: Status: Active Protocol: Document 07/29/20 15:15 DCW (Rec: 07/29/20 15:58 DCW [id number]) Physical Therapy Assessment Impairments Impairments Balance,Functional Activities, Functional Mobility,Gait, Vestibular Goals rotational movements Impairment pt shows LOB with any rotational movements Security Police Officer Goal (LTG) Pt will not experience LOB during transitional or rotational movements during daily activities such as climbing stairs, getting in & out of bed and doing yardwork. LTG Duration 8 weeks unsteady gait Impairment pt needs to find support often during gait Security Police Officer Goal (LTG) pt will improve her overall gait stability and balance so she does not need to surface cruising during ambulation. LTG Duration 8 weeks dizziness questionnaire Impairment pt scores 36 on dizziness questionnaire Longterm Goal (LTG) Pt will score <19 on dizziness questionnaire to improve her balance and mobility LTG Duration 8 weeks Assessment Summary Assessment Continues to progress, much better with convergence, able to do Earnest string today WNL. Physical Therapy Plan Frequency and Duration Frequency of Treatment 2x/Week Duration of Treatment 8 weeks Plan of Care Start Date 06/24/20 Plan of Care End Date 08/23/20 Therapeutic Interventions Therapeutic Interventions Balance Training,Canalithic Repositioning,Gait Training, Home Exercise Program,Manual Therapy,Neuromuscular Re- education,Patient/Caregiver Education,Self-Care/Home Management,Therapeutic Activities,Therapeutic Exercises,Vestibular Rehabilitation Next Visit Focus/Plan Next Note Type Treatment Note Next Visit Plan Oculomotor/Convergence exercises, Balance training
--- NOTE | 2020-07-31 16:00 | PT.OTN ---
Current Diagnoses Other abnormalities of gait and mobility (07/31/20) Dizziness and giddiness (07/31/20) Physical Therapy Treatment Note PT-OP-A Visit Information Start: 06/24/20 16:54 Freq: Status: Active Protocol: Document 07/31/20 15:15 DCW (Rec: 07/31/20 15:59 DCW [id number]) Out-Patient Physical Therapy Visit Information Visit Information Visit Type Treatment Note Visit Start Time 15:15 Visit Stop Time 16:00 Total Visit Minutes 45 Visit Number 6 Number of EMERGENCY MANAGER Visits 0 Evaluation Information Evaluation Date 06/24/20 PT-OP-B Current Condition Start: 06/24/20 16:54 Freq: Status: Active Protocol: Document 06/24/20 17:04 HH (Rec: 06/24/20 17:48 HH [email or web address]) Current Condition History of Current Condition Onset Date > 10 years ago Current Complaints poor balance, unsteady with gait History of Current Condition Pt is a 75 yo female here with c/o poor balance and unsteady gait. She stated it started > 10 years but it has been getting worse for the past few months. Pt denies any hx of fall within the past year. She tends to lose her balance with turns, getting up from chair, doing yard work and climbing ladder. She has to be careful with transitional movements but she denies lightheadiness/ dizziness/ spinning sensation. She tends to cruise around furniture and support as needed, and standing still or reading tends to help her symptoms. She also has difficulty doing tandem and single leg stance. Using vision and support from different surfaces have been very helpful to her. Pt stated that she had possible ear infection and multiple sinus infection which caused her painful ear pressure. Treatment Goals Patient/Caregiver Goals To be able to change my position without feeling the need to hang on to something. Personal Factors Other Personal Factors That May Effect Pt stated that she had Therapy/Recovery possible ear infection and multiple sinus infection which caused her painful ear pressure. PT-OP-C Subjective Start: 06/24/20 16:54 Freq: Status: Active Protocol: Document 07/31/20 15:15 DCW (Rec: 07/31/20 15:59 DCW [id number]) OP-PT Subjective Patient Comments Patient Comments I've been working on myself. I'm doing some balance practice. Pt does note that she is not feeling great after walking to the clinic today through the poor air outside. PT-OP-D Balance Start: 06/24/20 16:54 Freq: Status: Active Protocol: Document 06/24/20 17:04 HH (Rec: 06/24/20 17:48 [email or web address]) Balance Tests Reddy Balance Test Reddy Balance Test Score 45 Reddy Impairment Rating 1 to 19% Impaired (Score 45-55 ) Single Limb Standing Single Limb- Right 4 Single Limb- Left 3 Tandem Tandem Standing unable PT-OP-E Functional Tests Start: 06/24/20 16:54 Freq: Status: Active Protocol: Document 06/24/20 17:04 HH (Rec: 06/24/20 17:48 [email or web address]) Functional Tests Dynamic Gait Index (DGI) Score 20 DGI Impairment Rating 1 to <20% Impaired (Score 20- 23) PT-OP-G Mobility & Gait Start: 06/24/20 16:54 Freq: Status: Active Protocol: Document 06/24/20 17:04 HH (Rec: 06/24/20 17:48 [email or web address]) Stair Climbing Evaluation Devices Stair Climbing Assistive Devices None Technique/Endurance Stair Climbing Direction Ascend and Descend Stair Climbing Technique Step Over Step PT-OP-H Neuro Start: 06/24/20 16:54 Freq: Status: Active Protocol: Document 06/24/20 17:04 HH (Rec: 06/24/20 17:48 [email or web address]) Sensation Evaluation Gross Sensation Gross Sensation WNL Comments Summary Comments slight decreased sensation to LT at B heel Deep Tendon Reflex & Clonus Assessment Deep Tendon Reflex Bilateral Achilles Deep Tendon Reflex 2+ Normal Bilateral Patellar Deep Tendon Reflex 2+ Normal PT-OP-M Strength Start: 06/24/20 16:54 Freq: Status: Active Protocol: Document 06/24/20 17:04 HH (Rec: 06/24/20 17:48 [email or web address]) Hip Strength Hip Manual Muscle Testing Right Flexion (L2) 4+ Good+ Extension (S1) 4+ Good+ Abduction 4+ Good+ Adduction 4+ Good+ Left Flexion (L2) 4+ Good+ Extension (S1) 4+ Good+ Abduction 4+ Good+ Adduction 4+ Good+ Knee Strength Knee Manual Muscle Testing Right Flexion (S2) 4+ Good+ Extension (L3) 4+ Good+ Left Flexion (S2) 4+ Good+ Extension (L3) 4+ Good+ Ankle/Foot Strength Ankle and Foot Manual Muscle Testing Left Dorsiflexion (L4) 4+ Good+ Plantarflexion (S1) 4+ Good+ Right Dorsiflexion (L4) 4+ Good+ Plantarflexion (S1) 4+ Good+ PT-OP-O Vestibular Start: 06/24/20 16:54 Freq: Status: Active Protocol: Document 07/08/20 12:00 DCW (Rec: 07/08/20 12:45 DCW [id number]) Vestibular Assessment Auditory Tests Mcknight Test Within normal limits Rinne Test Negative Air Conduction Results Equal Visual Testing Smooth Pursuits Horizontal Negative Smooth Pursuits Vertical Negative Saccades Horizontal Subjective complaints Saccades Vertical Negative Gaze Evoked Nystagmus With Fixation Negative Gaze Evoked Nystagmus Without Fixation Negative Heave Test Positive Bilateral Thrust Head Positive Bilateral Cover/Uncover Test WNL Earnest String Test Impaired Convergence Test 38 cm DVA (Line Degradation) 4 Head Shake Negative Positional Testing Sidelying Test Negative Left,Negative Right Vestibular Function Tests Fukuda Test 55 degrees L rotation CTSIB Position 1 30 sec CTSIB Position 2 30 sec CTSIB Position 3 30 sec CTSIB Position 4 30 sec CTSIB Position 5 30 sec CTSIB Position 6 7 sec PT-OP-Q Treatments Start: 06/24/20 16:54 Freq: Status: Active Protocol: Document 07/31/20 15:15 DCW (Rec: 07/31/20 15:59 DCW [id number]) Gym Equipment Shuttle Balance Red Details WBOS (EO/EC), Staggered Stance (Ball Toss) Neuro Re-Education Treatment Vestibular Rehabilitation 2 Details Tennis ball tracking Comments Catch tennis balls 1 Details Pencil Push-ups Distance From Target as tolerated Position Seated PT-OP-T Assessment and Plan Start: 06/24/20 16:54 Freq: Status: Active Protocol: Document 07/31/20 15:15 DCW (Rec: 07/31/20 15:59 DCW [id number]) Physical Therapy Assessment Impairments Impairments Balance,Functional Activities, Functional Mobility,Gait, Vestibular Goals rotational movements Impairment pt shows LOB with any rotational movements Assisted Goal (LTG) Pt will not experience LOB during transitional or rotational movements during daily activities such as climbing stairs, getting in & out of bed and doing yardwork. LTG Duration 8 weeks unsteady gait Impairment pt needs to find support often during gait Food Cart Attendant Goal (LTG) pt will improve her overall gait stability and balance so she does not need to surface cruising during ambulation. LTG Duration 8 weeks dizziness questionnaire Impairment pt scores 36 on dizziness questionnaire Food Cart Attendant Goal (LTG) Pt will score <19 on dizziness questionnaire to improve her balance and mobility LTG Duration 8 weeks Assessment Summary Assessment Pt showing improvement with her balance and convergence, struggles a bit with tandem walking, but overall much better. Physical Therapy Plan Frequency and Duration Frequency of Treatment 2x/Week Duration of Treatment 8 weeks Plan of Care Start Date 06/24/20 Plan of Care End Date 08/23/20 Therapeutic Interventions Therapeutic Interventions Balance Training,Canalithic Repositioning,Gait Training, Home Exercise Program,Manual Therapy,Neuromuscular Re- education,Patient/Caregiver Education,Self-Care/Home Management,Therapeutic Activities,Therapeutic Exercises,Vestibular Rehabilitation Next Visit Focus/Plan Next Note Type Treatment Note Next Visit Plan Oculomotor/Convergence exercises, Balance training
--- NOTE | 2020-08-05 11:52 | PT.OTN ---
Current Diagnoses Other abnormalities of gait and mobility (08/05/20) Dizziness and giddiness (08/05/20) Physical Therapy Treatment Note PT-OP-A Visit Information Start: 06/24/20 16:54 Freq: Status: Active Protocol: Document 08/05/20 11:15 DCW (Rec: 08/05/20 11:52 DCW [id number]) Out-Patient Physical Therapy Visit Information Visit Information Visit Type Discharge Summary Visit Start Time 11:15 Visit Stop Time 11:45 Total Visit Minutes 30 Visit Number 7 Number of SERVICE CENTER SPECIALIST Visits 0 Evaluation Information Evaluation Date 06/24/20 PT-OP-B Current Condition Start: 06/24/20 16:54 Freq: Status: Active Protocol: Document 06/24/20 17:04 HH (Rec: 06/24/20 17:48 HH [email or web address]) Current Condition History of Current Condition Onset Date > 10 years ago Current Complaints poor balance, unsteady with gait History of Current Condition Pt is a 75 yo female here with c/o poor balance and unsteady gait. She stated it started > 10 years but it has been getting worse for the past few months. Pt denies any hx of fall within the past year. She tends to lose her balance with turns, getting up from chair, doing yard work and climbing ladder. She has to be careful with transitional movements but she denies lightheadiness/ dizziness/ spinning sensation. She tends to cruise around furniture and support as needed, and standing still or reading tends to help her symptoms. She also has difficulty doing tandem and single leg stance. Using vision and support from different surfaces have been very helpful to her. Pt stated that she had possible ear infection and multiple sinus infection which caused her painful ear pressure. Treatment Goals Patient/Caregiver Goals To be able to change my position without feeling the need to hang on to something. Personal Factors Other Personal Factors That May Effect Pt stated that she had Therapy/Recovery possible ear infection and multiple sinus infection which caused her painful ear pressure. PT-OP-C Subjective Start: 06/24/20 16:54 Freq: Status: Active Protocol: Document 08/05/20 11:15 DCW (Rec: 08/05/20 11:52 DCW [id number]) OP-PT Subjective Patient Comments Patient Comments Pt feels comfortable with discharge to [facility] at this time PT-OP-D Balance Start: 06/24/20 16:54 Freq: Status: Active Protocol: Document 08/05/20 11:15 DCW (Rec: 08/05/20 11:47 DCW [id number]) Balance Tests Reddy Balance Test Reddy Balance Test Score 56/56 Reddy Impairment Rating 0% Impaired (Score 56) Single Limb Standing Single Limb- Right 11 Single Limb- Left 20 Tandem Tandem Standing 52 PT-OP-E Functional Tests Start: 06/24/20 16:54 Freq: Status: Active Protocol: Document 08/05/20 11:15 DCW (Rec: 08/05/20 11:47 DCW [id number]) Functional Tests Dynamic Gait Index (DGI) Score 24 DGI Impairment Rating 0% Impaired (Score 24) PT-OP-G Mobility & Gait Start: 06/24/20 16:54 Freq: Status: Active Protocol: Document 06/24/20 17:04 HH (Rec: 06/24/20 17:48 HH [email or web address]) Stair Climbing Evaluation Devices Stair Climbing Assistive Devices None Technique/Endurance Stair Climbing Direction Ascend and Descend Stair Climbing Technique Step Over Step PT-OP-H Neuro Start: 06/24/20 16:54 Freq: Status: Active Protocol: Document 06/24/20 17:04 HH (Rec: 06/24/20 17:48 HH [email or web address]) Sensation Evaluation Gross Sensation Gross Sensation WNL Comments Summary Comments slight decreased sensation to LT at B heel Deep Tendon Reflex & Clonus Assessment Deep Tendon Reflex Bilateral Achilles Deep Tendon Reflex 2+ Normal Bilateral Patellar Deep Tendon Reflex 2+ Normal PT-OP-M Strength Start: 06/24/20 16:54 Freq: Status: Active Protocol: Document 06/24/20 17:04 HH (Rec: 06/24/20 17:48 HH [email or web address]) Hip Strength Hip Manual Muscle Testing Right Flexion (L2) 4+ Good+ Extension (S1) 4+ Good+ Abduction 4+ Good+ Adduction 4+ Good+ Left Flexion (L2) 4+ Good+ Extension (S1) 4+ Good+ Abduction 4+ Good+ Adduction 4+ Good+ Knee Strength Knee Manual Muscle Testing Right Flexion (S2) 4+ Good+ Extension (L3) 4+ Good+ Left Flexion (S2) 4+ Good+ Extension (L3) 4+ Good+ Ankle/Foot Strength Ankle and Foot Manual Muscle Testing Left Dorsiflexion (L4) 4+ Good+ Plantarflexion (S1) 4+ Good+ Right Dorsiflexion (L4) 4+ Good+ Plantarflexion (S1) 4+ Good+ PT-OP-O Vestibular Start: 06/24/20 16:54 Freq: Status: Active Protocol: Document 08/05/20 11:15 DCW (Rec: 08/05/20 11:47 DCW [id number]) Vestibular Assessment Visual Testing Saccades Horizontal Negative Heave Test Positive Bilateral Thrust Head Positive Bilateral Convergence Test 2 cm Vestibular Function Tests CTSIB Position 1 30 sec CTSIB Position 2 30 sec CTSIB Position 3 30 sec CTSIB Position 4 30 sec CTSIB Position 5 30 sec CTSIB Position 6 30 sec PT-OP-Q Treatments Start: 06/24/20 16:54 Freq: Status: Active Protocol: Document 08/05/20 11:15 DCW (Rec: 08/05/20 11:52 DCW [id number]) Neuro Re-Education Treatment Other Activities 1 Details Testing Comments Reddy, DGI, Vestibular testing PT-OP-T Assessment and Plan Start: 06/24/20 16:54 Freq: Status: Active Protocol: Document 08/05/20 11:15 DCW (Rec: 08/05/20 11:52 DCW [id number]) Physical Therapy Assessment Impairments Impairments Balance,Functional Activities, Functional Mobility,Gait, Vestibular Goals rotational movements Impairment pt shows LOB with any rotational movements E Learning Developer Goal (LTG) Pt will not experience LOB during transitional or rotational movements during daily activities such as climbing stairs, getting in & out of bed and doing yardwork. LTG Duration Met unsteady gait Impairment pt needs to find support often during gait Senior Living Goal (LTG) pt will improve her overall gait stability and balance so she does not need to surface cruising during ambulation. LTG Duration Met dizziness questionnaire Impairment pt scores 36 on dizziness questionnaire Senior Living Goal (LTG) Pt will score <19 on dizziness questionnaire to improve her balance and mobility LTG Duration 8 weeks Progress Towards Goals Progress Towards Goals Goals Met Assessment Summary Assessment Pt has made fantastic progress over the last month, comfortable with discharge to [facility]. Pt score 24/24 on DGI and 56/56 on Reddy, convergence testing decreased from 40 cm to 2 cm, which is WNL. Pt previously unable to hold tandem stance, and is now holding it 52 seconds. Pt appropriate to discharge at this time. Physical Therapy Plan Frequency and Duration Frequency of Treatment 2x/Week Duration of Treatment 8 weeks Plan of Care Start Date 06/24/20 Plan of Care End Date 08/23/20 Therapeutic Interventions Therapeutic Interventions Balance Training,Canalithic Repositioning,Gait Training, Home Exercise Program,Manual Therapy,Neuromuscular Re- education,Patient/Caregiver Education,Self-Care/Home Management,Therapeutic Activities,Therapeutic Exercises,Vestibular Rehabilitation Discharge Physical Therapy Discharge Reasons Goals Met Next Visit Focus/Plan Next Note Type Discharge Summary
== END 2020-09-01 13:19 ==
LOC: PHYS 11:15
PROVIDERS: PCP Physician Assistant; Referring Provider Physician Assistant; Visit Provider Physician Assistant
DX: R42 Dizziness and giddiness (principal); R26.89 Other abnormalities of gait and mobility
CPT/HCPCS: 97112; 97162

== ENCOUNTER → 2020-10-22 09:36 | Outpatient (CLI) | payer MEDICARE, SELFPAY ==
[2018-06-13 10:06] VITALS: BMI 28.9
[2020-10-22 12:37] LABS: COVID19 -Nasal RAPID Negative (Negative)
== END ==
PROVIDERS: PCP Physician Assistant; Referring Provider Internal Medicine; Visit Provider Internal Medicine
DX: Z11.59 Encounter for screening for other viral diseases (principal)
CPT/HCPCS: 87635; C9803

== ENCOUNTER → 2020-10-23 15:50 | Outpatient (CLI) | payer MEDICARE, SELFPAY ==
[2018-06-13 10:06] VITALS: BMI 28.9
--- NOTE | 2020-10-31 17:26 | PM.PFT.1 ---
Pulmonary Function Test Referral & Results Date Patient Seen: 10/23/20 Requesting provider: Neftaly Ricardo Results: The spirometry demonstrates an FVC of 2.03 L which is 74% of predicted. The FEV1 was measured at 1.27 L which is 61% of predicted. The FEV1/FVC ratio was 62 which is 83% of predicted. Following the administration of bronchodilator there was no appreciable change. Lung volumes show an SVC of 1.78 L which is 66% of predicted. The diffusing capacity was measured at 21.70 which is 94% of predicted. The maximum voluntary ventilation was reduced Interpretation: This study demonstrates mild to moderate obstructive lung disease based on reduction FEV1 and FEV1/FVC ratio. There is no evidence of significant benefit following bronchodilator There is also moderate reduction in SVC suggesting restrictive lung disease Diffusing capacity is normal Compared to PFTs performed in February 2013, current study is essentially unchanged
== END ==
PROVIDERS: PCP Physician Assistant; Referring Provider Internal Medicine Interventional Cardiology; Visit Provider Internal Medicine Interventional Cardiology
DX: R06.02 Shortness of breath (principal); J98.8 Other specified respiratory disorders; Z87.891 Personal history of nicotine dependence
CPT/HCPCS: 94060; 94726; 94729

== ENCOUNTER → 2020-12-02 14:53 | Outpatient (ROUT) | payer MEDICARE, SELFPAY ==
[2018-06-13 10:06] VITALS: BMI 28.9
[2020-12-02 15:17] LABS: Add Manual Diff / Slide Review NO; Basophils Absolute Auto 0 /uL (0-100); Basophils Percent Auto 0.9 % (0-2); Eosinophils Absolute Auto 100 /uL (0-450); Eosinophils Percent Auto 1.7 % (2-4); Hematocrit 36.9 % (36-46); Hemoglobin 12.6 g/dL (12.0-16.0); Lymphocytes Absolute Auto 1300 /uL (1100-4500); Lymphocytes Percent Auto 25.7 % (25-40); Mean Corpuscular Hemoglobin 33.3 PG (26-34); Mean Corpuscular Volume 97.9 fL (80-100); Monocytes Absolute Auto 400 /uL (0-900); Monocytes Percent Auto 8.3 % (3-14); Neutrophils Absolute Auto 3300 /uL (1500-7000); Neutrophils Percent Auto 63.4 % (50-75); Platelet Count 222 X10^3/uL (150-400); Red Blood Cell Count 3.77 X10^6/uL (4.0-5.2); Red Cell Distribution Width 12.6 % (11.6-14.8); White Blood Cell Count 5.2 X10^3/uL (4.5-11.0)
[2020-12-02 15:28] LABS: HEMOLYSIS < 15 (0-50); Iron 107 ug/dL (37-170)
[2020-12-02 15:32] LABS: Alanine Aminotransferase 41 IU/L (<35); Albumin 4.2 g/dL (3.5-5.0); Albumin Globulin Ratio 1.6 (1.0-2.8); Alkaline Phosphatase 45 U/L (38-126); Aspartate Aminotransferase 29 IU/L (14-36); BUN Creatinine Ratio 27.8 (6-22); Bilirubin Total 0.3 mg/dL (0.2-1.3); Blood Urea Nitrogen 27 mg/dL (7-17); Calcium 9.6 mg/dL (8.4-10.2); Carbon Dioxide 28 mmol/L (22-32); Chloride 104 mmol/L (98-107); Estimated Glomerular Filt Rate 56.1 mL/min (>60); Globulin 2.6 g/dL (1.7-4.1); Glucose 101 mg/dL (80-110); HEMOLYSIS < 15 (0-50); Potassium 4.6 mmol/L (3.4-5.1); Sodium 136 mmol/L (137-145); Total Protein 6.8 g/dL (6.3-8.2)
[2020-12-02 15:39] LABS: NT-proBNP (BNP-Adult 18+) 175 pg/mL (<125); Percent Iron Saturation 36 % (15-50); Total Iron Binding Capacity 298 ug/dL (265-497); Transferrin 232 mg/dL (206-381)
[2020-12-02 16:00] LABS: TSH w/ Reflex to FT4 1.84 uIU/mL (0.47-4.68)
[2020-12-02 16:05] LABS: Ferritin 100 ng/mL (11-264)
== END ==
PROVIDERS: PCP Physician Assistant; Visit Provider Physician Assistant
DX: R06.02 Shortness of breath (principal); E78.2 Mixed hyperlipidemia; I10 Essential (primary) hypertension; K21.00 Gastro-esophageal reflux disease with esophagitis, without bleeding; R53.83 Other fatigue
CPT/HCPCS: 80053; 82728; 83540; 83550; 83880; 84443; 85025

== ENCOUNTER 2021-01-12 09:01 | Emergency (ER) | payer MEDICARE, SELFPAY ==
[2018-06-13 10:06] VITALS: BMI 28.9
[2021-01-12] VITALS (25 sets, daily range): BP systolic 151–194; BP diastolic 61–77; PULSE 35–128; RESP 15–33; TEMP 36.8; O2SAT 93–100; BMI 30.2
--- NOTE | 2021-01-12 09:10 | DI.RAD.S_ITS ---
PROCEDURE: XR CHEST 1V INDICATIONS: Shortness of breath TECHNIQUE: One view of the chest was acquired. COMPARISON: [facility], CR, XR CHEST 2V, 01/23/2020, 14:57. FINDINGS: Surgical changes and devices: None. Lungs and pleura: Lungs are clear. No pleural effusions or pneumothorax. Mediastinum: Mediastinal contours appear normal. Heart size is normal. Bones and chest wall: No suspicious bony lesions. Overlying soft tissues appear unremarkable. IMPRESSION: No acute cardiopulmonary pathology. Dictated by: Volodymyr Guzman M.D. on 01/12/2021 at 9:40 Approved by: Volodymyr Guzman M.D. on 01/12/2021 at 9:44
--- NOTE | 2021-01-12 09:22 | ED.GENADULT ---
HPI - General Adult General Chief complaint: Arrhythmia/Palpitations Stated complaint: Low Heart Rate Time Seen by Provider: 01/12/21 09:08 Source: patient Mode of arrival: Ambulatory Limitations: no limitations History of Present Illness HPI narrative: Patient is a 75-year-old female. She states that for the past several weeks if not months she has had off and on episodes of a low heart rate associated with some lightheadedness. She was on metoprolol for control of both blood pressure and ?arrhythmias ?she an appointment with her banquet food server at the middle of last week for this and she stated that she stop the metoprolol. She is currently only taking 1/2 dose of a losartan for high blood pressure. She states that when she was at her banquet food server's office of the middle last week she was not having any symptoms. On Tuesday she started noticing that her heart rate was low. States when she is lying down she is not having any symptoms but every time she stands up she becomes very lightheaded. She is not having chest pain or shortness of breath. Has not passed out. No lower extremity swelling. Related Data Home Medications Medication Instructions Recorded Confirmed acetaminophen 500 mg tablet 1,000 mg PO Q6H PRN 07/09/19 01/16/20 bioflavonoids 1 tab PO DAILY 07/09/19 01/02/20 calcium 1 tab PO BID 07/09/19 01/02/20 omeprazole 20 mg capsule,delayed 20 mg PO BID 07/09/19 01/23/20 release acyclovir 400 mg PO DAILY 01/02/20 01/23/20 mometasone-formoterol [Dulera] 2 puff INHALATION DAILY 01/02/20 01/23/20 albuterol sulfate [Proventil HFA] 2 puff INH Q4-6H PRN 01/16/20 01/16/20 ketorolac 1 drp OPHTHALMIC (EYE) DIRECTED 01/23/20 01/23/20 losartan [Cozaar] 50 mg PO DAILY 01/23/20 01/23/20 prednisolone acetate 1 drp OPHTHALMIC (EYE) DIRECTED 01/23/20 01/23/20 zolpidem 2.5 - 5 mg PO BEDTIME 01/23/20 01/23/20 atorvastatin 10 mg tablet 20 mg PO BEDTIME tab 08/13/20 08/13/20 Previous Rx's Medication Instructions Recorded [ESTRIOL/PROGES] 0 #45 01/10/17 inhalational spacing device #1 each 05/10/18 tramadol 50 mg tablet 50 mg PO TID PRN #30 tab 09/12/19 albuterol sulfate 2 puff INHALATION Q4-6H PRN #18 01/23/20 gram Allergies Allergy/AdvReac Type Severity Reaction Status Date / Time meloxicam Allergy Pitting Verified 01/12/21 09:16 Edema lisinopril AdvReac Mild COUGH Verified 01/12/21 09:16 Review of Systems Constitutional Constitutional: Denies fever(s), Denies headache(s) and Reports weakness Eyes Eyes: Denies change in vision ENT Ears, Nose, Mouth, and Throat: Denies headache(s) Cardiovascular Cardiovascular: Denies chest pain, Reports lightheadedness and Denies dyspnea Comments: Slow heart rate Respiratory Respiratory: Denies cough and Denies dyspnea Gastrointestinal Gastrointestinal: Denies abdominal pain, Denies nausea and Denies vomiting Genitourinary Genitourinary: Denies dysuria Genitourinary: Denies dysuria Musculoskeletal Musculoskeletal: Denies arthralgias and Denies myalgias Integumentary/Breasts Skin/Breast: Denies lesions and Denies rash Neurologic Neurologic: Denies behavioral changes, Denies headache(s) and Reports weakness Psychiatric Psychiatric: Denies behavioral changes Hematologic/Lymphatic On Anticoagulants: No Allergic/Immunologic Allergic/Immunologic: Denies urticaria Patient History Medical History Asthma, moderate persistent, well-controlled (10/15/15) Atrophic vaginitis Essential hypertension (02/22/13) Fragile skin Hyperlipidemia (02/22/13) Surgical History Status post vaginal hysterectomy Family History Brother Diabetes mellitus Father Colon cancer Mother Colon cancer Social History household members: spouse Smoking Status: Former smoker Tobacco: How many years used: 1 alcohol intake: current Smoking Status: Former smoker alcohol intake frequency: 0-2 drinks per day Alcohol type: wine Substance Use Type: does not use Exam Initial Vital Signs Initial Vital Signs: Vital Signs Pulse Rate 43 L 01/12/21 09:07 Pulse Oximetry 98 01/12/21 09:07 Const General: cooperative and comfortable Limitations: mental status not altered HENMT Head: normal to inspection and normocephalic Resp Effort & Inspection: normal respiratory effort Auscultation: clear to auscultation bilaterally Cardio Rate: bradycardic Rhythm: regular rhythm Pulses: radial pulses present GI Inspection: non-distended Palpation: No firm Skin Lesions: no lesions Rashes: no rashes Neuro General: patient alert, patient awake and patient oriented x3 Cognition: normal cognition Speech: speech normal Extrem General: normal to inspection, capillary refill normal and No edema Psych Appearance: grossly normal and well kempt Scores GCS [place] coma scale eye opening: Spontaneous [place] coma scale verbal response: Orientated [place] coma scale motor response: Obey commands [place] coma scale total score: 15 Course Orders Ordered: ED Orders 01/12/21 09:10 XR chest 1V Stat EKG-12 Lead Stat 01/12/21 09:21 Complete Blood Count AUTO DIFF Stat Comprehensive Metabolic Panel Stat Lipase Stat NT-proBNP (BNP-Adult 18+) Stat Partial Thromboplastin Time Stat Prothrombin Time INR Stat Troponin & CK Cardiac Panel Stat 01/12/21 09:55 COVID19 Stat Vital Signs Vital signs: Vital Signs - 8 hr 01/12/21 09:07 01/12/21 09:09 01/12/21 09:10 Temperature 98.2 F Pulse Rate 43 L 40 L 41 L Respiratory Rate 33 H Blood Pressure 182/77 H 182/77 H Pulse Oximetry 98 100 99 01/12/21 09:20 01/12/21 09:30 01/12/21 09:31 Temperature Pulse Rate 40 L 56 L 38 L Respiratory Rate 33 H 33 H 26 H Blood Pressure 151/63 H Pulse Oximetry 100 100 100 01/12/21 09:40 01/12/21 09:50 01/12/21 10:00 Temperature Pulse Rate 39 L 36 L 36 L Respiratory Rate 32 H 30 H 23 Blood Pressure Pulse Oximetry 99 99 100 01/12/21 10:01 01/12/21 10:10 01/12/21 10:20 Temperature Pulse Rate 36 L 39 L 48 L Respiratory Rate 25 H 30 H 27 H Blood Pressure 188/74 H Pulse Oximetry 100 99 99 01/12/21 10:30 01/12/21 10:31 01/12/21 10:40 Temperature Pulse Rate 35 L 39 L 128 H Respiratory Rate 33 H 37 H 25 H Blood Pressure 157/70 H Pulse Oximetry 99 100 100 01/12/21 10:43 01/12/21 10:57 01/12/21 11:00 Temperature Pulse Rate 36 L 39 L Respiratory Rate 25 H 30 H Blood Pressure 181/77 H Pulse Oximetry 99 93 98 01/12/21 11:01 01/12/21 11:05 01/12/21 11:10 Temperature Pulse Rate 57 L 37 L 36 L Respiratory Rate 30 H 28 H 33 H Blood Pressure 165/61 H 194/77 H 180/75 H Pulse Oximetry 100 100 99 01/12/21 11:20 01/12/21 11:21 01/12/21 12:27 Temperature Pulse Rate 47 L 63 35 L Respiratory Rate 25 H 32 H 24 Blood Pressure 178/65 H Pulse Oximetry 99 99 98 01/12/21 12:30 Temperature Pulse Rate 35 L Respiratory Rate 26 H Blood Pressure 157/65 H Pulse Oximetry 98 Medical Decision Making Lab Data Lab results reviewed: Yes I reviewed the patient's lab results. Result diagrams: 01/12/21 09:21 01/12/21 09:21 Labs: Lab Results 01/12/21 01/12/21 01/12/21 Range/Units 09:21 09:21 09:21 WBC 6.5 (4.5-11.0) X10^3/uL RBC 3.79 L (4.0-5.2) X10^6/uL Hgb 12.8 (12.0-16.0) g/dL Hct 37.2 (36-46) % MCV 98.2 (80-100) fL MCH 33.9 (26-34) PG MCHC 34.5 (30-36) % RDW 13.4 (11.6-14.8) % Plt Count 199 (150-400) X10^3/uL Neut % (Auto) 66.7 (50-75) % Lymph % (Auto) 23.9 L (25-40) % Isabella % (Auto) 7.2 (3-14) % Eos % (Auto) 1.2 L (2-4) % Baso % (Auto) 1.0 (0-2) % Neut # (Auto) 4300 (1817-5254) /uL Lymph # (Auto) 1500 (4547-6127) /uL Isabella # (Auto) 500 (0-900) /uL Eos # (Auto) 100 (0-450) /uL Baso # (Auto) 100 (0-100) /uL PT 10.9 (10.1-12.7) SECONDS INR 1.0 (0.9-1.3) APTT 30 (26.4-36.2) SECONDS Sodium 135 L (137-145) mmol/L Potassium 4.1 (3.4-5.1) mmol/L Chloride 101 (98-107) mmol/L Carbon Dioxide 28 (22-32) mmol/L BUN 31 H (7-17) mg/dL Creatinine 0.94 (0.52-1.04) mg/dL Estimated GFR 58.2 L (>60) mL/min BUN/Creatinine Ratio 33.0 H (6-22) Glucose 147 H (80-110) mg/dL Calcium 9.9 (8.4-10.2) mg/dL Total Bilirubin 0.4 (0.2-1.3) mg/dL AST 30 (14-36) IU/L ALT 36 H (<35) IU/L Alkaline Phosphatase 45 (38-126) U/L Total Creatine Kinase (30-135) U/L CK-MB (CK-2) CK-MB (CK-2) Rel Index Troponin I (0.01-0.034) ng/mL NT-Pro-B Natriuret Pep 433 H (<125) pg/mL Total Protein 7.3 (6.3-8.2) g/dL Albumin 4.6 (3.5-5.0) g/dL Globulin 2.7 (1.7-4.1) g/dL Albumin/Globulin Ratio 1.7 (1.0-2.8) Lipase 111 (23-300) U/L SARS-CoV-2 (PCR) (Negative) 01/12/21 01/12/21 Range/Units 09:21 09:55 WBC (4.5-11.0) X10^3/uL RBC (4.0-5.2) X10^6/uL Hgb (12.0-16.0) g/dL Hct (36-46) % MCV (80-100) fL MCH (26-34) PG MCHC (30-36) % RDW (11.6-14.8) % Plt Count (150-400) X10^3/uL Neut % (Auto) (50-75) % Lymph % (Auto) (25-40) % Isabella % (Auto) (3-14) % Eos % (Auto) (2-4) % Baso % (Auto) (0-2) % Neut # (Auto) (4581-6651) /uL Lymph # (Auto) (7646-7374) /uL Isabella # (Auto) (0-900) /uL Eos # (Auto) (0-450) /uL Baso # (Auto) (0-100) /uL PT (10.1-12.7) SECONDS INR (0.9-1.3) APTT (26.4-36.2) SECONDS Sodium (137-145) mmol/L Potassium (3.4-5.1) mmol/L Chloride (98-107) mmol/L Carbon Dioxide (22-32) mmol/L BUN (7-17) mg/dL Creatinine (0.52-1.04) mg/dL Estimated GFR (>60) mL/min BUN/Creatinine Ratio (6-22) Glucose (80-110) mg/dL Calcium (8.4-10.2) mg/dL Total Bilirubin (0.2-1.3) mg/dL AST (14-36) IU/L ALT (<35) IU/L Alkaline Phosphatase (38-126) U/L Total Creatine Kinase 47 (30-135) U/L CK-MB (CK-2) TNP CK-MB (CK-2) Rel Index TNP Troponin I < 0.012 (0.01-0.034) ng/mL NT-Pro-B Natriuret Pep (<125) pg/mL Total Protein (6.3-8.2) g/dL Albumin (3.5-5.0) g/dL Globulin (1.7-4.1) g/dL Albumin/Globulin Ratio (1.0-2.8) Lipase (23-300) U/L SARS-CoV-2 (PCR) Negative (Negative) Imaging Data Chest x-ray: Radiologist's Impression: [facility] [place] [id number] ReportSigned Patient: Katya Mancilla LMR#: [id number]: 6Acct:[id number]/Sex: 75 / FDate of Service: 01/12/21Loc: EDAccession Number: [id number] Procedure: XR chest 1V Ordering Provider: Jorge Rodriguez D.O. PROCEDURE: XR CHEST 1V INDICATIONS: Shortness of breath TECHNIQUE: One view of the chest was acquired. COMPARISON: [facility], , XR CHEST 2V, 01/23/2020, 14:57. FINDINGS: Surgical changes and devices: None. Lungs and pleura: Lungs are clear. No pleural effusions or pneumothorax. Mediastinum: Mediastinal contours appear normal. Heart size is normal. Bones and chest wall: No suspicious bony lesions. Overlying soft tissues appear unremarkable. IMPRESSION: No acute cardiopulmonary pathology. Dictated by: Volodymyr Guzman M.D. on 01/12/2021 at 9:40 Approved by: Volodymyr Guzman M.D. on 01/12/2021 at 9:44 ECG Data Attestation: I personally reviewed and interpreted this ECG as follows: Prior ECG tracings: not available for review Interpretation: Sinus rhythm Ventricular rate of 39 Normal QRS Normal QTC Every other P-wave not associated with QRS complex MDM Narrative Medical decision making narrative: Patient is alert and oriented x3. She has stable appearing despite being bradycardic and hyper intensive. She is not in respiratory distress. She has not been on any beta-blockers for the past 5 days. Her symptoms today started on Tuesday. EKG shows 2-1 AV block. Discussed the case with with Cardiology at [facility] who did review the EKG and recommended patient be transferred for further evaluation and treatment. I then discussed the case with with Internal Medicine who accepts the patient for transfer. I did discuss all this with the patient who expressed understanding and agreement. Patient is currently stable for transport. Discharge Plan Departure Patient Disposition: [facility] Clinical Impression: AV block, Bradycardia Prescriptions: No Action [ESTRIOL/PROGES] 0 Qty: 45 RF: 0 (DME) inhalational spacing device [E-Z Spacer] spacer See Dose Instructions .ROUTE .MEDSUPPLY Qty: 1 RF: 0 Dulera 200-5 mcg/actuation Hfa Aerosol Inhaler 2 puff INHALATION DAILY RF: 0 acyclovir 400 MG tablet 400 mg PO DAILY RF: 0 albuterol sulfate [Proventil HFA] 90 MCG/PUFF HFA aerosol inhaler 2 puff INH Q4-6H PRN (Reason: Dyspnea) RF: 0 ketorolac 0.5 % drops 1 drp ophthalmic (eye) DIRECTED RF: 0 prednisolone acetate 1 % drops,suspension 1 drp ophthalmic (eye) DIRECTED RF: 0 zolpidem 5 MG tablet 2.5 - 5 mg PO BEDTIME RF: 0 losartan [Cozaar] 100 MG tablet 50 mg PO DAILY RF: 0 albuterol sulfate 90 mcg/actuation HFA aerosol inhaler 2 puff INHALATION Q4-6H PRN (Reason: shortness of breath or wheezing) Qty: 18 RF: 0 atorvastatin [Lipitor] 10 mg tablet 20 mg PO BEDTIME RF: 0 omeprazole 20 mg capsule,delayed release(DR/EC) 20 mg PO BID RF: 0 calcium 1 tab PO BID RF: 0 acetaminophen [Tylenol Extra Strength] 500 mg tablet 1,000 mg PO Q6H PRN (Reason: Pain) RF: 0 bioflavonoids 1 tab PO DAILY RF: 0 tramadol 50 mg tablet 50 mg PO TID PRN (Reason: pain) Qty: 30 RF: 1 Referrals: Suly Griffin PA-C [Primary Care Provider] -
[2021-01-12 09:30] LABS: Add Manual Diff / Slide Review NO; Basophils Absolute Auto 100 /uL (0-100); Eosinophils Absolute Auto 100 /uL (0-450); Eosinophils Percent Auto 1.2 % (2-4); Hematocrit 37.2 % (36-46); Hemoglobin 12.8 g/dL (12.0-16.0); Lymphocytes Absolute Auto 1500 /uL (1100-4500); Lymphocytes Percent Auto 23.9 % (25-40); Mean Corpuscular HGB Conc 34.5 % (30-36); Mean Corpuscular Hemoglobin 33.9 PG (26-34); Mean Corpuscular Volume 98.2 fL (80-100); Monocytes Absolute Auto 500 /uL (0-900); Monocytes Percent Auto 7.2 % (3-14); Neutrophils Absolute Auto 4300 /uL (1500-7000); Neutrophils Percent Auto 66.7 % (50-75); Platelet Count 199 X10^3/uL (150-400); Red Blood Cell Count 3.79 X10^6/uL (4.0-5.2); Red Cell Distribution Width 13.4 % (11.6-14.8); White Blood Cell Count 6.5 X10^3/uL (4.5-11.0)
[2021-01-12 09:37] LABS: Prothrombin Time 10.9 SECONDS (10.1-12.7)
[2021-01-12 09:40] LABS: Creatine Kinase 47 U/L (30-135); PTT Partial Thromboplastin Tim 30 SECONDS (26.4-36.2)
[2021-01-12 09:42] LABS: Alanine Aminotransferase 36 IU/L (<35); Albumin 4.6 g/dL (3.5-5.0); Albumin Globulin Ratio 1.7 (1.0-2.8); Alkaline Phosphatase 45 U/L (38-126); Aspartate Aminotransferase 30 IU/L (14-36); Bilirubin Total 0.4 mg/dL (0.2-1.3); Blood Urea Nitrogen 31 mg/dL (7-17); Calcium 9.9 mg/dL (8.4-10.2); Carbon Dioxide 28 mmol/L (22-32); Chloride 101 mmol/L (98-107); Estimated Glomerular Filt Rate 58.2 mL/min (>60); Globulin 2.7 g/dL (1.7-4.1); Glucose 147 mg/dL (80-110); HEMOLYSIS < 15 (0-50); Lipase 111 U/L (23-300); Potassium 4.1 mmol/L (3.4-5.1); Sodium 135 mmol/L (137-145); Total Protein 7.3 g/dL (6.3-8.2)
[2021-01-12 09:51] LABS: NT-proBNP (BNP-Adult 18+) 433 pg/mL (<125)
[2021-01-12 09:53] LABS: Troponin I < 0.012 ng/mL (0.01-0.034)
[2021-01-12 10:18] LABS: COVID19 -Nasal RAPID Negative (Negative)
== END 2021-01-12 13:00 | disposition short-term general hospital (02) ==
PROVIDERS: Emergency Provider Emergency Medicine; PCP Physician Assistant
DX: I44.30 Unspecified atrioventricular block (principal); R00.1 Bradycardia, unspecified; R42 Dizziness and giddiness; Z20.822 Contact with and (suspected) exposure to COVID-19; R06.02 Shortness of breath; I10 Essential (primary) hypertension
CPT/HCPCS: 36415; 71045; 80053; 82550; 83690; 83880; 84484; 85025; 85610; 85730; 87635; 93005; 99283; 99284; C9803

== ENCOUNTER 2021-01-13 17:12 | Emergency (ER) | payer MEDICARE, SELFPAY ==
[2018-06-13 10:06] VITALS: BMI 28.9
[2021-01-13 17:15] VITALS: BMI 30.2
--- NOTE | 2021-01-13 17:29 | DI.RAD.S_ITS ---
PROCEDURE: XR CHEST 1V INDICATIONS: chest pain TECHNIQUE: One view of the chest was acquired. COMPARISON: [facility], CR, XR CHEST 1V, 01/12/2021, 9:31. FINDINGS: Surgical changes and devices: None. Lungs and pleura: Visualized lungs are clear. No pleural effusions or pneumothorax. Mediastinum: Mediastinal contours appear normal. Heart size is normal. Bones and chest wall: No suspicious bony lesions. Overlying soft tissues appear unremarkable. IMPRESSION: 1. No acute cardiopulmonary disease. Dictated by: Luke Elizabeth M.D. on 01/13/2021 at 17:33 Approved by: Luke Elizabeth M.D. on 01/13/2021 at 17:34
[2021-01-13 17:43] VITALS: BP 180/77; PULSE 72; RESP 16; O2SAT 99
[2021-01-13 17:51] LABS: Add Manual Diff / Slide Review NO; Basophils Absolute Auto 0 /uL (0-100); Basophils Percent Auto 0.5 % (0-2); Eosinophils Absolute Auto 100 /uL (0-450); Eosinophils Percent Auto 1.1 % (2-4); Hematocrit 39.2 % (36-46); Hemoglobin 13.4 g/dL (12.0-16.0); Lymphocytes Absolute Auto 1300 /uL (1100-4500); Mean Corpuscular HGB Conc 34.2 % (30-36); Mean Corpuscular Hemoglobin 33.7 PG (26-34); Mean Corpuscular Volume 98.5 fL (80-100); Monocytes Absolute Auto 700 /uL (0-900); Monocytes Percent Auto 8.2 % (3-14); Neutrophils Absolute Auto 6700 /uL (1500-7000); Neutrophils Percent Auto 75.2 % (50-75); Platelet Count 187 X10^3/uL (150-400); Red Blood Cell Count 3.98 X10^6/uL (4.0-5.2); Red Cell Distribution Width 12.9 % (11.6-14.8); White Blood Cell Count 8.9 X10^3/uL (4.5-11.0)
[2021-01-13 17:58] VITALS: BP 179/85; PULSE 76; RESP 16; O2SAT 100
[2021-01-13 17:58] LABS: Prothrombin Time 11.7 SECONDS (10.1-12.7)
[2021-01-13 18:00] VITALS: BP 163/72; PULSE 75; RESP 18; O2SAT 99
[2021-01-13 18:01] LABS: PTT Partial Thromboplastin Tim 30 SECONDS (26.4-36.2)
[2021-01-13 18:02] LABS: Alanine Aminotransferase 34 IU/L (<35); Albumin 4.8 g/dL (3.5-5.0); Albumin Globulin Ratio 1.7 (1.0-2.8); Alkaline Phosphatase 47 U/L (38-126); Aspartate Aminotransferase 35 IU/L (14-36); BUN Creatinine Ratio 23.1 (6-22); Bilirubin Total 0.4 mg/dL (0.2-1.3); Blood Urea Nitrogen 21 mg/dL (7-17); Calcium 9.3 mg/dL (8.4-10.2); Carbon Dioxide 23 mmol/L (22-32); Chloride 104 mmol/L (98-107); Creatine Kinase 175 U/L (30-135); Estimated Glomerular Filt Rate > 60.0 mL/min (>60); Globulin 2.9 g/dL (1.7-4.1); Glucose 103 mg/dL (80-110); Lipase 116 U/L (23-300); Potassium 4.7 mmol/L (3.4-5.1); Sodium 135 mmol/L (137-145); Total Protein 7.7 g/dL (6.3-8.2)
[2021-01-13 18:14] LABS: Troponin I 0.013 ng/mL (0.01-0.034)
[2021-01-13 18:17] LABS: CKMB % Relative Index 0.6 % (1.5-5.0); Creatine Kinase MB 0.98 ng/mL (<2.37)
[2021-01-13 18:18] LABS: D Dimer 649 ng/mL (<230)
[2021-01-13 18:19] LABS: HEMOLYSIS 57 (0-50)
[2021-01-13 18:30] VITALS: BP 154/74; PULSE 75; RESP 20; O2SAT 100
--- NOTE | 2021-01-13 18:41 | ED.CHESTPAIN ---
HPI - Chest Pain General Chief Complaint: Chest Pain Stated Complaint: difficulty breathig, recent emergent pacemaker ins Time Seen by Provider: 01/13/21 18:01 Source: patient and family Mode of arrival: Family Vehicle History of Present Illness HPI narrative: This is a 75-year-old female comes in status post pacemaker emergency placed yesterday and telling him. Patient states she was feeling okay after pacemaker placement yesterday. She was discharged home this morning felt relatively comfortable with some mild pain in her anterior chest. This afternoon about 1400 she started developing left thoracic back. Patient states being increasingly uncomfortable. She states she does not think that she did a lot of movement with her upper extremity on that side. She does states that she was pretty active today. She did try some tramadol with minimal improvement. She states that she has felt a little crummy. She denies fevers. She denies chills. She denies any syncope. She has felt a little lightheaded. She denies any anterior chest pain or pressure that is new other than at the pacemaker site. She states that has moved a little bit lower into her breast area. Patient states she has had a little bit swelling on that left side. She denies any abdominal pain. She denies any nausea, no vomiting. No new urinary symptoms. She has been mildly constipated having bowel movements. She states it is uncomfortable for her to lay onto her back. She feels short of breath when she tries to take a deep breath. She takes losartan, uses Dulera, timolol drops atorvastatin. She denies any prior cardiac stents. Her only other surgical history is hysterectomy. She states she is allergic to meloxicam and lisinopril. She does not take any thinners. Related Data Home Medications Medication Instructions Recorded Confirmed acetaminophen 500 mg tablet 1,000 mg PO Q6H PRN 07/09/19 01/16/20 bioflavonoids 1 tab PO DAILY 07/09/19 01/02/20 calcium 1 tab PO BID 07/09/19 01/02/20 omeprazole 20 mg capsule,delayed 20 mg PO BID 07/09/19 01/23/20 release acyclovir 400 mg PO DAILY 01/02/20 01/23/20 mometasone-formoterol [Dulera] 2 puff INHALATION DAILY 02/19/20 03/11/20 albuterol sulfate [Proventil HFA] 2 puff INH Q4-6H PRN 01/16/20 01/16/20 ketorolac 1 drp OPHTHALMIC (EYE) DIRECTED 01/23/20 01/23/20 losartan [Cozaar] 50 mg PO DAILY 01/23/20 01/23/20 prednisolone acetate 1 drp OPHTHALMIC (EYE) DIRECTED 01/23/20 01/23/20 zolpidem 2.5 - 5 mg PO BEDTIME 01/23/20 01/23/20 atorvastatin 10 mg tablet 20 mg PO BEDTIME tab 08/13/20 08/13/20 Previous Rx's Medication Instructions Recorded [ESTRIOL/PROGES] 0 #45 01/10/17 inhalational spacing device #1 each 05/10/18 tramadol 50 mg tablet 50 mg PO TID PRN #30 tab 09/12/19 albuterol sulfate 2 puff INHALATION Q4-6H PRN #18 01/23/20 gram Allergies Allergy/AdvReac Type Severity Reaction Status Date / Time meloxicam Allergy Pitting Verified 01/12/21 09:16 Edema lisinopril AdvReac Mild COUGH Verified 01/12/21 09:16 Review of Systems Review of Systems ROS Unobtainable: All systems reviewed & are unremarkable except as noted in HPI and below Patient History Medical History Asthma, moderate persistent, well-controlled (10/15/15) Atrophic vaginitis Essential hypertension (02/22/13) Fragile skin Hyperlipidemia (02/22/13) Surgical History Status post vaginal hysterectomy Family History (Reviewed 01/23/20 @ 14:54 [address] [facility]) Brother Diabetes mellitus Father Colon cancer Mother Colon cancer Social History household members: spouse Smoking Status: Former smoker Tobacco: How many years used: 1 alcohol intake: current Smoking Status: Former smoker alcohol intake frequency: 0-2 drinks per day Alcohol type: wine Substance Use Type: does not use Exam Narrative Exam Narrative: GENERAL: Alert and oriented x three, well-nourished elderly female in mild distress. Patient feels most comfortable sitting up on the edge of the bed. HEENT: Head normocephalic, atraumatic, EOMI, pupils reactive, face symmetric, moist mucous membranes NECK: Supple, full range of motion CARDIOVASCULAR: Regular rate and rhythm without murmurs, rubs or gallops. Patient has incision over the left anterior chest consistent with pacemaker. There is some ecchymosis. There is not hematoma. There is no erythema, warmth or discharge. No subcutaneous emphysema. RESPIRATORY: Breath sounds equal bilaterally, no wheezes rales or rhonchi. ABDOMEN: Soft, nontender. Normoactive bowel sounds all 4 quadrants. No guarding or rebound, rigidity, no mass : No CVA tenderness BACK: No cervical, thoracic or lumbar vertebral point tenderness. Patient has normal range of motion. P EXTREMITIES: Normal range of motion, no clubbing or edema. Neurovascularly intact NEUROLOGICAL: Cranial nerves II through XII grossly intact. Moving all extremities SKIN: Warm, dry, no petechiae, no rashes or lesions noted other than above. Initial Vital Signs Initial Vital Signs: Vital Signs Pulse Rate 72 01/13/21 17:43 Respiratory Rate 16 01/13/21 17:43 Blood Pressure 180/77 H 01/13/21 17:43 Pulse Oximetry 99 01/13/21 17:43 Course Orders Ordered: ED Orders 01/13/21 19:41 NT-proBNP (BNP-Adult 18+) Stat Troponin I Stat Discontinued Medications Hydrocodone Bitart/Acetaminophen (Hydrocodone/Acet 5/325 Prepack) 1 bottle MISC SEEINSTR ONE Stop: 01/13/21 20:14 Last Admin: 01/13/21 20:21 Dose: 1 bottle Documented by: ARTI Sodium Chloride (Normal Saline 0.9%) 1,000 mls @ 150 mls/hr IV CONT SERAFIN Last Infusion: 01/13/21 20:22 Dose: 0 mls/hr Documented by: Admin: 01/13/21 19:17 Dose: 150 mls/hr Documented by: ARTI Morphine Sulfate (Morphine 4 Mg/Ml Inj) 4 mg IV NOW ONE Stop: 01/13/21 18:51 Last Admin: 01/13/21 19:17 Dose: 4 mg Documented by: ARTI Consultations Consultation #1: Dr. Rich with general surgery, reviewed patient's imaging. She is 24 hours out from her initial event with a pneumothorax present. At this time if she lives very closely strict return precautions and repeat imaging in 24 hours for recheck. Time: 19:39 Vital Signs Vital signs: Vital Signs - 8 hr 01/13/21 17:43 01/13/21 17:58 01/13/21 18:00 Pulse Rate 72 76 75 Respiratory Rate 16 16 18 Blood Pressure 180/77 H 179/85 H 163/72 H Pulse Oximetry 99 100 99 01/13/21 18:30 Pulse Rate 75 Respiratory Rate 20 Blood Pressure 154/74 H Pulse Oximetry 100 MDM - Chest Pain Lab Data Attestation: I reviewed the patient's lab results. Result diagrams: 01/13/21 17:43 01/13/21 17:43 Labs: Lab Results 01/13/21 01/13/21 01/13/21 Range/Units 17:43 17:43 17:43 WBC 8.9 (4.5-11.0) X10^3/uL RBC 3.98 L (4.0-5.2) X10^6/uL Hgb 13.4 (12.0-16.0) g/dL Hct 39.2 (36-46) % MCV 98.5 (80-100) fL MCH 33.7 (26-34) PG MCHC 34.2 (30-36) % RDW 12.9 (11.6-14.8) % Plt Count 187 (150-400) X10^3/uL Neut % (Auto) 75.2 H (50-75) % Lymph % (Auto) 15.0 L (25-40) % Eagle % (Auto) 8.2 (3-14) % Eos % (Auto) 1.1 L (2-4) % Baso % (Auto) 0.5 (0-2) % Neut # (Auto) 6700 (8831-6255) /uL Lymph # (Auto) 1300 (9022-6261) /uL Eagle # (Auto) 700 (0-900) /uL Eos # (Auto) 100 (0-450) /uL Baso # (Auto) 0 (0-100) /uL PT 11.7 (10.1-12.7) SECONDS INR 1.0 (0.9-1.3) APTT 30 (26.4-36.2) SECONDS D-Dimer (<230) ng/mL Sodium 135 L (137-145) mmol/L Potassium 4.7 (3.4-5.1) mmol/L Chloride 104 (98-107) mmol/L Carbon Dioxide 23 (22-32) mmol/L BUN 21 H (7-17) mg/dL Creatinine 0.91 (0.52-1.04) mg/dL Estimated GFR > 60.0 (>60) mL/min BUN/Creatinine Ratio 23.1 H (6-22) Glucose 103 (80-110) mg/dL Calcium 9.3 (8.4-10.2) mg/dL Total Bilirubin 0.4 (0.2-1.3) mg/dL AST 35 (14-36) IU/L ALT 34 (<35) IU/L Alkaline Phosphatase 47 (38-126) U/L Total Creatine Kinase 175 H (30-135) U/L CK-MB (CK-2) 0.98 (<2.37) ng/mL CK-MB (CK-2) Rel Index 0.6 L (1.5-5.0) % Troponin I 0.013 (0.01-0.034) ng/mL NT-Pro-B Natriuret Pep (<125) pg/mL Total Protein 7.7 (6.3-8.2) g/dL Albumin 4.8 (3.5-5.0) g/dL Globulin 2.9 (1.7-4.1) g/dL Albumin/Globulin Ratio 1.7 (1.0-2.8) Lipase 116 (23-300) U/L 01/13/21 01/13/21 01/13/21 Range/Units 17:43 19:41 19:41 WBC (4.5-11.0) X10^3/uL RBC (4.0-5.2) X10^6/uL Hgb (12.0-16.0) g/dL Hct (36-46) % MCV (80-100) fL MCH (26-34) PG MCHC (30-36) % RDW (11.6-14.8) % Plt Count (150-400) X10^3/uL Neut % (Auto) (50-75) % Lymph % (Auto) (25-40) % Eagle % (Auto) (3-14) % Eos % (Auto) (2-4) % Baso % (Auto) (0-2) % Neut # (Auto) (8791-8467) /uL Lymph # (Auto) (4379-1457) /uL Eagle # (Auto) (0-900) /uL Eos # (Auto) (0-450) /uL Baso # (Auto) (0-100) /uL PT (10.1-12.7) SECONDS INR (0.9-1.3) APTT (26.4-36.2) SECONDS D-Dimer 649 H (<230) ng/mL Sodium (137-145) mmol/L Potassium (3.4-5.1) mmol/L Chloride (98-107) mmol/L Carbon Dioxide (22-32) mmol/L BUN (7-17) mg/dL Creatinine (0.52-1.04) mg/dL Estimated GFR (>60) mL/min BUN/Creatinine Ratio (6-22) Glucose (80-110) mg/dL Calcium (8.4-10.2) mg/dL Total Bilirubin (0.2-1.3) mg/dL AST (14-36) IU/L ALT (<35) IU/L Alkaline Phosphatase (38-126) U/L Total Creatine Kinase (30-135) U/L CK-MB (CK-2) (<2.37) ng/mL CK-MB (CK-2) Rel Index (1.5-5.0) % Troponin I 0.014 (0.01-0.034) ng/mL NT-Pro-B Natriuret Pep 173 H (<125) pg/mL Total Protein (6.3-8.2) g/dL Albumin (3.5-5.0) g/dL Globulin (1.7-4.1) g/dL Albumin/Globulin Ratio (1.0-2.8) Lipase (23-300) U/L Imaging Data Chest x-ray: Radiologist's Impression: [address] [id number] ReportSigned Patient: Katya Mancilla LMR#: [id number]: 1945cct:[id number]/Sex: 75 / FDate of Service: 01/13/21Loc: EDAccession Number: [id number] Procedure: XR chest 1V Ordering Provider: Jono Grande MD PROCEDURE: XR CHEST 1V INDICATIONS: chest pain TECHNIQUE: One view of the chest was acquired. COMPARISON: Merged With [facility], CR, XR CHEST 1V, 01/12/2021, 9:31. FINDINGS: Surgical changes and devices: None. Lungs and pleura: Visualized lungs are clear. No pleural effusions or pneumothorax. Mediastinum: Mediastinal contours appear normal. Heart size is normal. Bones and chest wall: No suspicious bony lesions. Overlying soft tissues appear unremarkable. IMPRESSION: 1. No acute cardiopulmonary disease. Dictated by: Luke Elizabeth M.D. on 01/13/2021 at 17:33 Approved by: Luke Elizabeth M.D. on 01/13/2021 at 17:34 CT scan - chest: Radiologist's Impression: [address] Scan ReportSigned Patient: Katya Mancilla LMR#: [id number]: 6Acct:[id number]/Sex: 75 / FDate of Service: 01/13/21Loc: EDAccession Number: [id number] Procedure: CT angio chest PE protocol Ordering Provider: Letty Latham D.O. PROCEDURE: CT ANGIO CHEST PE PROTOCOL INDICATIONS: left thoracic back pain, s/p pacer yesterday, fhx pe's TECHNIQUE: After the administration of intravenous contrast, 2 mm thick sections acquired from the pulmonary apices to the posterior costophrenic angles. 3-dimensional maximum intensity projection (MIP) coronal and sagittal reformats were then acquired through the thorax. For radiation dose reduction, the following was used: automated exposure control, adjustment of mA and/or kV according to patient size. COMPARISON: [facility], XR CHEST 1V, 01/13/2021, 17:44. [facility], XR CHEST 1V, 01/12/2021, 9:31. FINDINGS: Image quality: Excellent. Pulmonary arteries: Pulmonary arteries are normal in size, and demonstrate no intraluminal filling defects to suggest central pulmonary embolism. Scattered subsegmental atelectasis and/or scarring. No focal consolidation. No pleural effusions . Trace left apical pneumothorax. Central and peripheral airways are patent. Mediastinum: Heart size is normal, without pericardial effusion. No mediastinal or hilar adenopathy. Thoracic aorta is normal in caliber and enhancement. Small hiatal hernia Bones and chest wall: Left chest pacer with associated soft tissue gas which is presumably postoperative. No suspicious bony lesions. Ribs and thoracic spine appear intact throughout. Thyroid gland negative. No axillary or supraclavicular adenopathy. Abdomen: Visualized upper abdominal solid organs appear normal in the early arterial phase of enhancement. IMPRESSION: No evidence of pulmonary embolism. No aortic dissection identified. Trace left apical pneumothorax. Critical findings were personally telephoned and discussed with Dr. Latham in the emergency department at 1933 hours 01/13/21. Dictated by: Jasmeet Tucker M.D. on 01/13/2021 at 19:30 Approved by: Jasmeet Tucker M.D. on 01/13/2021 at 19:35 ECG Data Attestation: I personally reviewed and interpreted this ECG as follows: Prior ECG tracings: available for review Interpretation: Atrial sensed ventricular paced rhythm. Rate of 71 DE 154 QRS of 174 QTC 525. Patient has a prior EKG that shows severe sinus bradycardia. [facility] Narrative Medical decision making narrative: 75-year-old female comes in with complaint of left-sided thoracic back pain in the setting of pacemaker placement yesterday. Patient has a atrial paced rhythm. Initial troponin is negative. D-dimer is elevated although this may be secondary to her recent intervention. she does have a family history of her mother having multiple blood clots. Patient's imaging shows a trace pneumothorax. Vital signs stable with no other emergent findings. Patient received morphine and was feeling much more comfortable. Discussed with General surgery who recommends as she is 24 hours out from initial inciting event that if patient is otherwise stable can follow up in 24 hours with repeat imaging but with strict return precautions overnight. Patient feels comfortable with this plan. Discharge Plan Departure Patient Disposition: Home Clinical Impression: Back pain, thoracic, Pneumothorax on left Instructions: DI for Pneumothorax Activity Restrictions/Additional Instructions: Follow up tomorrow for repeat CXR for recheck of your pneumothorax. You can return to the ER for repeat imaging in the afternoon or call your physician for xray if they are able to order it tomorrow. Take pain medication as prescribed. This medication can make you sleepy do not drive, perform hazardous activities or make any major decisions while taking it. Return immediately to the emergency department for lightheadedness, passing out, increasing back, chest pain, increasing shortness of breath, persistent vomiting, new swelling in your extremities or other new or concerning symptoms. Prescriptions: No Action [ESTRIOL/PROGES] 0 Qty: 45 RF: 0 (DME) inhalational spacing device [E-Z Spacer] spacer See Dose Instructions .ROUTE .MEDSUPPLY Qty: 1 RF: 0 Dulera 200-5 mcg/actuation Hfa Aerosol Inhaler 2 puff INHALATION DAILY RF: 0 acyclovir 400 MG tablet 400 mg PO DAILY RF: 0 albuterol sulfate [Proventil HFA] 90 MCG/PUFF HFA aerosol inhaler 2 puff INH Q4-6H PRN (Reason: Dyspnea) RF: 0 ketorolac 0.5 % drops 1 drp ophthalmic (eye) DIRECTED RF: 0 prednisolone acetate 1 % drops,suspension 1 drp ophthalmic (eye) DIRECTED RF: 0 zolpidem 5 MG tablet 2.5 - 5 mg PO BEDTIME RF: 0 losartan [Cozaar] 100 MG tablet 50 mg PO DAILY RF: 0 albuterol sulfate 90 mcg/actuation HFA aerosol inhaler 2 puff INHALATION Q4-6H PRN (Reason: shortness of breath or wheezing) Qty: 18 RF: 0 atorvastatin [Lipitor] 10 mg tablet 20 mg PO BEDTIME RF: 0 omeprazole 20 mg capsule,delayed release(DR/EC) 20 mg PO BID RF: 0 calcium 1 tab PO BID RF: 0 acetaminophen [Tylenol Extra Strength] 500 mg tablet 1,000 mg PO Q6H PRN (Reason: Pain) RF: 0 bioflavonoids 1 tab PO DAILY RF: 0 tramadol 50 mg tablet 50 mg PO TID PRN (Reason: pain) Qty: 30 RF: 1 Referrals: Suly Griffin PA-C [Primary Care Provider] -
--- NOTE | 2021-01-13 18:50 | DI.CT.S_ITS ---
PROCEDURE: CT ANGIO CHEST PE PROTOCOL INDICATIONS: left thoracic back pain, s/p pacer yesterday, fhx pe's TECHNIQUE: After the administration of intravenous contrast, 2 mm thick sections acquired from the pulmonary apices to the posterior costophrenic angles. 3-dimensional maximum intensity projection (MIP) coronal and sagittal reformats were then acquired through the thorax. For radiation dose reduction, the following was used: automated exposure control, adjustment of mA and/or kV according to patient size. COMPARISON: [facility], CR, XR CHEST 1V, 01/13/2021, 17:44. [facility], CR, XR CHEST 1V, 01/12/2021, 9:31. FINDINGS: Image quality: Excellent. Pulmonary arteries: Pulmonary arteries are normal in size, and demonstrate no intraluminal filling defects to suggest central pulmonary embolism. Scattered subsegmental atelectasis and/or scarring. No focal consolidation. No pleural effusions . Trace left apical pneumothorax. Central and peripheral airways are patent. Mediastinum: Heart size is normal, without pericardial effusion. No mediastinal or hilar adenopathy. Thoracic aorta is normal in caliber and enhancement. Small hiatal hernia Bones and chest wall: Left chest pacer with associated soft tissue gas which is presumably postoperative. No suspicious bony lesions. Ribs and thoracic spine appear intact throughout. Thyroid gland negative. No axillary or supraclavicular adenopathy. Abdomen: Visualized upper abdominal solid organs appear normal in the early arterial phase of enhancement. IMPRESSION: No evidence of pulmonary embolism. No aortic dissection identified. Trace left apical pneumothorax. Critical findings were personally telephoned and discussed with Dr. Latham in the emergency department at 1933 hours 01/13/21. Dictated by: Jasmeet Tucker M.D. on 01/13/2021 at 19:30 Approved by: Jasmeet Tucker M.D. on 01/13/2021 at 19:35
[2021-01-13] MEDS: SODIUM CHLORIDE 0.9% 1,000 ML 150 ML IV (19:17)
[2021-01-13] MEDS: MORPHINE 4 MG/ML INJ IV (19:17)
[2021-01-13 20:06] LABS: NT-proBNP (BNP-Adult 18+) 173 pg/mL (<125)
[2021-01-13 20:10] LABS: Troponin I 0.014 ng/mL (0.01-0.034)
[2021-01-13] MEDS: HYDROCODONE/ACET 5/325 PREPACK 1 BOTTLE MISC (20:21)
== END 2021-01-13 20:30 | disposition home or self-care (01) ==
PROVIDERS: Emergency Medicine; Emergency Provider Emergency Medicine; PCP Physician Assistant
DX: M54.6 Pain in thoracic spine (principal); J93.9 Pneumothorax, unspecified; R07.9 Chest pain, unspecified; Z95.0 Presence of cardiac pacemaker; K59.00 Constipation, unspecified; R06.02 Shortness of breath
CPT/HCPCS: 36415; 71045; 71275; 80053; 82550; 82553; 83690; 83880; 84484; 85025; 85379; 85610; 85730; 93005; 96361; 96374; 99284; J2270

== ENCOUNTER 2021-01-14 16:27 | Emergency (ER) | payer MEDICARE, SELFPAY ==
[2018-06-13 10:06] VITALS: BMI 28.9
--- NOTE | 2021-01-14 16:30 | DI.RAD.S_ITS ---
PROCEDURE: XR CHEST 2V INDICATIONS: possible pneumonia TECHNIQUE: 2 views of the chest were acquired. COMPARISON: [facility], CR, XR CHEST 1V, 01/13/2021, 17:44. [facility], CT, CT ANGIO CHEST PE PROTOCOL, 01/13/2021, 19:00. FINDINGS: Surgical changes and devices: Pacemaker. Lungs and pleura: Lungs are clear. No pleural effusions or pneumothorax. Mediastinum: Mediastinal contours are normal. Heart size is normal. Bones and chest wall: No suspicious bony abnormalities. Soft tissues demonstrate lucency along the anterior chest wall seen on lateral view. IMPRESSION: 1. No acute pulmonary process. 2. Soft tissue lucency seen on lateral view much better characterized on recent CT demonstrating air within the subcutaneous tissues. Please see CT chest report of 01/13/2021. Dictated by: Subha Nicholas M.D. on 01/14/2021 at 16:46 Approved by: Subha Nicholas M.D. on 01/14/2021 at 16:47
[2021-01-14 16:32] VITALS: BP 175/72; PULSE 72; RESP 20; TEMP 36.9; O2SAT 98
--- NOTE | 2021-01-14 17:35 | ED_ITS ---
HPI - Recheck/Abnormal Lab/Rx General Chief Complaint: Recheck/Abnormal Lab/Rx Stated Complaint: needs repeat CXR, not in office today Time Seen by Provider: 01/14/21 17:30 Source: patient Mode of arrival: Ambulatory History of Present Illness HPI narrative: Patient is a 75-year-old female who is here for repeat x-ray. 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 She presented last evening with worsening chest and back pain. Initial chest x-ray was negative however CT did show trace pneumothorax. It was discussed with surgery patient is stable in 24 hours out at that time but needs a repeat chest x-ray 24 hours from last night. Patient was given pain medication and returns today for follow-up chest x-ray. If she states that she overall feels significantly better she had a small episode of pain after taking medication but quickly resolved. She denies shortness of breath with exertion chest pain or cough. Related Data Home Medications Medication Instructions Recorded Confirmed acetaminophen 500 mg tablet 1,000 mg PO Q6H PRN 07/09/19 01/16/20 bioflavonoids 1 tab PO DAILY 07/09/19 01/02/20 calcium 1 tab PO BID 07/09/19 01/02/20 omeprazole 20 mg capsule,delayed 20 mg PO BID 07/09/19 01/23/20 release acyclovir 400 mg PO DAILY 01/02/20 01/23/20 mometasone-formoterol [Dulera] 2 puff INHALATION DAILY 01/02/20 01/23/20 albuterol sulfate [Proventil HFA] 2 puff INH Q4-6H PRN 01/16/20 01/16/20 ketorolac 1 drp OPHTHALMIC (EYE) DIRECTED 01/23/20 01/23/20 losartan [Cozaar] 50 mg PO DAILY 01/23/20 01/23/20 prednisolone acetate 1 drp OPHTHALMIC (EYE) DIRECTED 01/23/20 01/23/20 zolpidem 2.5 - 5 mg PO BEDTIME 01/23/20 01/23/20 atorvastatin 10 mg tablet 20 mg PO BEDTIME tab 08/13/20 08/13/20 Previous Rx's Medication Instructions Recorded [ESTRIOL/PROGES] 0 #45 01/10/17 inhalational spacing device #1 each 05/10/18 tramadol 50 mg tablet 50 mg PO TID PRN #30 tab 09/12/19 albuterol sulfate 2 puff INHALATION Q4-6H PRN #18 01/23/20 gram Allergies Allergy/AdvReac Type Severity Reaction Status Date / Time meloxicam Allergy Pitting Verified 01/12/21 09:16 Edema lisinopril AdvReac Mild COUGH Verified 01/12/21 09:16 Review of Systems Review of Systems Narrative: GENERAL: Denies chills, fatigue, malaise, fever, sweats, travel HEENT: Denies sinus pain, ear pain, sore throat, difficulty swallowing, neck pa in RESPIRATORY: See HPI CARDIOVASCULAR: Denies chest pain, palpitations, orthopnea, edema GASTROINTESTINAL: Denies nausea, vomiting, abdominal pain, diarrhea, constipation, melena. : Denies dysuria, frequency, incontinence, hematuria, urinary retention, flank pain. MUSCULOSKELETAL: Denies weakness, joint pain, or bony pain SKIN: No rash, no erythema, no pruritus NEUROLOGIC: Denies weakness, dizziness, headache, numbness, change in speech, confusion PSYCHIATRIC: No concerning psychosocial issues. 12 point review of systems is negative except for those stated above and HPI Patient History Medical History Asthma, moderate persistent, well-controlled (10/15/15) Atrophic vaginitis Essential hypertension (02/22/13) Fragile skin Hyperlipidemia (02/22/13) Surgical History Status post vaginal hysterectomy Family History Brother Diabetes mellitus Father Colon cancer Mother Colon cancer Social History household members: spouse Smoking Status: Former smoker Tobacco: How many years used: 1 alcohol intake: current Smoking Status: Former smoker alcohol intake frequency: 0-2 drinks per day Alcohol type: wine Substance Use Type: does not use Exam Initial Vital Signs Initial Vital Signs: Vital Signs Temperature 98.5 F 01/14/21 16:32 Pulse Rate 72 01/14/21 16:32 Respiratory Rate 20 01/14/21 16:32 Blood Pressure 175/72 H 01/14/21 16:32 Pulse Oximetry 98 01/14/21 16:32 GENERAL: Well-appearing, well-nourished and in no acute distress. HEENT: Head atraumatic,EOMI, pupils reactive, face symmetric, moist mucous membranes CARDIOVASCULAR: Regular rate and rhythm without murmurs, rubs or gallops. RESPIRATORY: Breath sounds equal bilaterally, no wheezes rales or rhonchi. ABDOMEN: Soft, nontender. Normoactive bowel sounds all 4 quadrants. No guarding or rebound. EXTREMITIES: Normal range of motion, no clubbing or edema. Neurovascularly intact NEUROLOGICAL: Alert and oriented x4.Normal gait and speech. SKIN: Warm, dry, no laceration, no petechiae, no rashes or lesions. Course Orders Ordered: ED Orders 01/14/21 16:30 XR chest 2V Stat Vital Signs Vital signs: Vital Signs - 8 hr 01/14/21 16:32 Temperature 98.5 F Pulse Rate 72 Respiratory Rate 20 Blood Pressure 175/72 H Pulse Oximetry 98 MDM - Recheck/Abnormal Lab/Rx Imaging Data Chest x-ray: Radiologist's Impression: PROCEDURE: XR CHEST 2V INDICATIONS: possible pneumonia TECHNIQUE: 2 views of the chest were acquired. COMPARISON: [facility], CR, XR CHEST 1V, 01/13/2021, 17:44. [facility], CT, CT ANGIO CHEST PE PROTOCOL, 01/13/2021, 19:00. FINDINGS: Surgical changes and devices: Pacemaker. Lungs and pleura: Lungs are clear. No pleural effusions or pneumothorax. Mediastinum: Mediastinal contours are normal. Heart size is normal. Bones and chest wall: No suspicious bony abnormalities. Soft tissues demonstrate lucency along the anterior chest wall seen on lateral view. IMPRESSION: 1. No acute pulmonary process. 2. Soft tissue lucency seen on lateral view much better characterized on recent CT demonstrating air within the subcutaneous tissues. Please see CT chest report of 01/13/2021. Dictated by: Subha Nicholas M.D. on 01/14/2021 at 16:46 Approved by: Subha Nicholas M.D. on 01/14/2021 at 16:47 [facility] Narrative Medical decision making narrative: Patient's pain is overall improved. Chest x-ray does not reveal any pneumothorax it was not identified initially on chest x-ray CT only. Mrs. good sign that it has not enlarged and patient clinically feels better. At this time recommend patient can go home she understands warning signs and when to return to the ED. I suspect that this will resolve on its own is without any intervention Discharge Plan Departure Patient Disposition: Home Clinical Impression: Pneumothorax on left Activity Restrictions/Additional Instructions: *You have been diagnosed with pneumothorax on left *What to do: Does not show pneumothorax however it is still likely that you have a small 1 that is not identified. At this time it is likely it will resolve on its own if it has not already. *Continue to take medications as directed Continue pain medications as previously prescribed *Follow up with your primary care provider in 2-3 days *Return to ER if you should have lightheadedness, passing out, increasing back or chest pain, shortness of breath, persistent vomiting or any new, worsening or concerning symptoms Prescriptions: No Action [ESTRIOL/PROGES] 0 Qty: 45 RF: 0 (DME) inhalational spacing device [E-Z Spacer] spacer See Dose Instructions .ROUTE .MEDSUPPLY Qty: 1 RF: 0 Dulera 200-5 mcg/actuation Hfa Aerosol Inhaler 2 puff INHALATION DAILY RF: 0 acyclovir 400 MG tablet 400 mg PO DAILY RF: 0 albuterol sulfate [Proventil HFA] 90 MCG/PUFF HFA aerosol inhaler 2 puff INH Q4-6H PRN (Reason: Dyspnea) RF: 0 ketorolac 0.5 % drops 1 drp ophthalmic (eye) DIRECTED RF: 0 prednisolone acetate 1 % drops,suspension 1 drp ophthalmic (eye) DIRECTED RF: 0 zolpidem 5 MG tablet 2.5 - 5 mg PO BEDTIME RF: 0 losartan [Cozaar] 100 MG tablet 50 mg PO DAILY RF: 0 albuterol sulfate 90 mcg/actuation HFA aerosol inhaler 2 puff INHALATION Q4-6H PRN (Reason: shortness of breath or wheezing) Qty: 18 RF: 0 atorvastatin [Lipitor] 10 mg tablet 20 mg PO BEDTIME RF: 0 omeprazole 20 mg capsule,delayed release(DR/EC) 20 mg PO BID RF: 0 calcium 1 tab PO BID RF: 0 acetaminophen [Tylenol Extra Strength] 500 mg tablet 1,000 mg PO Q6H PRN (Reason: Pain) RF: 0 bioflavonoids 1 tab PO DAILY RF: 0 tramadol 50 mg tablet 50 mg PO TID PRN (Reason: pain) Qty: 30 RF: 1 Referrals: Suly Griffin PA-C [Primary Care Provider] -
== END 2021-01-14 17:57 | disposition home or self-care (01) ==
PROVIDERS: Emergency Provider Emergency Medicine; PCP Physician Assistant
DX: J93.9 Pneumothorax, unspecified (principal); Z95.0 Presence of cardiac pacemaker
CPT/HCPCS: 71046; 99283

== ENCOUNTER 2021-05-05 16:15 | Emergency (ER) | payer MEDICARE, SELFPAY ==
[2018-06-13 10:06] VITALS: BMI 28.9
[2021-05-05] VITALS (9 sets, daily range): BP systolic 135–177; BP diastolic 63–101; PULSE 71–95; RESP 18; TEMP 37.6; O2SAT 96–98
[2021-05-05 16:52] LABS: Add Manual Diff / Slide Review NO; Basophils Absolute Auto 100 /uL (0-100); Basophils Percent Auto 0.5 % (0-2); Eosinophils Absolute Auto 100 /uL (0-450); Eosinophils Percent Auto 0.8 % (2-4); Hematocrit 37.6 % (36-46); Hemoglobin 12.6 g/dL (12.0-16.0); Lymphocytes Absolute Auto 1300 /uL (1100-4500); Lymphocytes Percent Auto 11.9 % (25-40); Mean Corpuscular HGB Conc 33.5 % (30-36); Mean Corpuscular Hemoglobin 32.5 PG (26-34); Monocytes Absolute Auto 900 /uL (0-900); Monocytes Percent Auto 8.7 % (3-14); Neutrophils Absolute Auto 8400 /uL (1500-7000); Neutrophils Percent Auto 78.1 % (50-75); Platelet Count 215 X10^3/uL (150-400); Red Blood Cell Count 3.87 X10^6/uL (4.0-5.2); Red Cell Distribution Width 12.9 % (11.6-14.8); White Blood Cell Count 10.8 X10^3/uL (4.5-11.0)
[2021-05-05 17:02] LABS: Alanine Aminotransferase 41 IU/L (<35); Albumin 4.4 g/dL (3.5-5.0); Albumin Globulin Ratio 1.4 (1.0-2.8); Alkaline Phosphatase 86 U/L (38-126); Aspartate Aminotransferase 37 IU/L (14-36); BUN Creatinine Ratio 12.3 (6-22); Bilirubin Total 0.6 mg/dL (0.2-1.3); Blood Urea Nitrogen 9 mg/dL (7-17); Calcium 9.8 mg/dL (8.4-10.2); Carbon Dioxide 26 mmol/L (22-32); Chloride 103 mmol/L (98-107); Estimated Glomerular Filt Rate > 60.0 mL/min (>60); Globulin 3.2 g/dL (1.7-4.1); Glucose 115 mg/dL (80-110); HEMOLYSIS < 15 (0-50); Lipase 60 U/L (23-300); Potassium 4.1 mmol/L (3.4-5.1); Sodium 137 mmol/L (137-145); Total Protein 7.6 g/dL (6.3-8.2)
--- NOTE | 2021-05-05 19:45 | ED_ITS ---
HPI - Abdominal Pain General Chief Complaint: Abdominal Pain Stated Complaint: stomach pain, sent by clinic Time Seen by Provider: 05/05/21 19:18 Source: patient Mode of arrival: Ambulatory Limitations: no limitations History of Present Illness HPI narrative: 76-year-old female former smoker with history of insomnia, bursitis of the right hip presents at the request of the walk-in clinic for evaluation of lower abdominal discomfort with the passage of mucus type stool over the past few days. She has had a low-grade fever and crampy pain that is rather persistent. She states her discomfort is worse with motion and improves with rest. She denies any blood in her stool. She has been nauseated but denies any vomiting. She denies any recent antibiotics, international travel, exposure to bad foods or exposure to other persons with similar symptoms. She denies any history of the same. MD complaint: abdominal pain Onset (ago): day(s) Pain Consistency: constant Location: LLQ and RLQ Severity: moderate Quality: cramping and aching Radiation: none Relieving factors: rest Exacerbating factors: movement Associated symptoms: other Related Data Home Medications Medication Instructions Recorded Confirmed acetaminophen 500 mg tablet 1,000 mg PO Q6H PRN 07/09/19 01/16/20 bioflavonoids 1 tab PO DAILY 07/09/19 01/02/20 calcium 1 tab PO BID 07/09/19 01/02/20 omeprazole 20 mg capsule,delayed 20 mg PO BID 07/09/19 01/23/20 release acyclovir 400 mg PO DAILY 01/02/20 01/23/20 mometasone-formoterol [Dulera] 2 puff INHALATION DAILY 01/02/20 01/23/20 albuterol sulfate [Proventil HFA] 2 puff INH Q4-6H PRN 01/16/20 01/16/20 ketorolac 1 drp OPHTHALMIC (EYE) DIRECTED 01/23/20 01/23/20 losartan [Cozaar] 50 mg PO DAILY 01/23/20 01/23/20 prednisolone acetate 1 drp OPHTHALMIC (EYE) DIRECTED 01/23/20 01/23/20 zolpidem 2.5 - 5 mg PO BEDTIME 01/23/20 01/23/20 atorvastatin 10 mg tablet 20 mg PO BEDTIME tab 08/13/20 08/13/20 Previous Rx's Medication Instructions Recorded [ESTRIOL/PROGES] 0 #45 01/10/17 inhalational spacing device #1 each 05/10/18 tramadol 50 mg tablet 50 mg PO TID PRN #30 tab 09/12/19 albuterol sulfate 2 puff INHALATION Q4-6H PRN #18 01/23/20 gram amoxicillin-pot clavulanate 1 tab PO BID #20 tab 05/05/21 [Augmentin] hydrocodone-acetaminophen 1 tab PO Q4-6H PRN #10 tab 05/05/21 ondansetron 4 mg PO TID-QID PRN #10 tab 05/05/21 Allergies Allergy/AdvReac Type Severity Reaction Status Date / Time meloxicam Allergy Pitting Verified 01/12/21 09:16 Edema lisinopril AdvReac Mild COUGH Verified 01/12/21 09:16 Review of Systems Constitutional Constitutional: Denies chills, Denies fatigue, Denies fever(s), Denies frequent falls, Denies lethargy and Denies weakness Eyes Eyes: Denies change in vision, Denies eye discharge, Denies irritation and Denies loss of vision ENT Ears, Nose, Mouth, and Throat: Denies change in voice, Denies dizziness, Denies neck pain, Denies sore throat and Denies throat swelling Cardiovascular Cardiovascular: Denies chest pain, Denies irregular heart rhythm, Denies lig htheadedness, Denies palpitations, Denies dyspnea, Denies dyspnea on exertion and Denies orthopnea Respiratory Respiratory: Denies cough, Denies dyspnea, Denies dyspnea on exertion and Denies wheezing Gastrointestinal Gastrointestinal: Reports abdominal pain, Denies change in bowel habits, Reports change in stool character, Denies diarrhea, Reports nausea and Denies vomiting Musculoskeletal Musculoskeletal: Denies neck pain and Denies numbness Integumentary/Breasts Skin/Breast: Denies pruritus, Denies erythema, Denies rash and Denies wounds Neurologic Neurologic: Denies behavioral changes, Denies confusion, Denies dizziness, Denies frequent falls, Denies loss of vision, Denies numbness and Denies w eakness Psychiatric Psychiatric: Denies anxiety, Denies behavioral changes, Denies confusion, Denies depression, Denies homicidal ideation and Denies suicidal ideation Endocrine Endocrine: Denies fatigue, Denies flushing and Denies palpitations Hematologic/Lymphatic Hematologic/Lymphatic: Denies easy bruising Allergic/Immunologic Allergic/Immunologic: Denies urticaria, Denies throat swelling and Denies wheezing Patient History Medical History Asthma, moderate persistent, well-controlled (10/15/15) Atrophic vaginitis Essential hypertension (02/22/13) Fragile skin Hyperlipidemia (02/22/13) Surgical History Status post vaginal hysterectomy Family History Brother Diabetes mellitus Father Colon cancer Mother Colon cancer Social History household members: spouse Smoking Status: Former smoker Tobacco: How many years used: 1 alcohol intake: current Smoking Status: Former smoker alcohol intake frequency: 0-2 drinks per day Alcohol type: wine Substance Use Type: does not use Exam Narrative Exam Narrative: GENERAL: [] year old patient appears stated age. Well- developed patient, in mild distress. HEAD: Atraumatic. Normocephalic. EYES: Pupils equal round and reactive. Extraocular motions intact. No scleral icterus. No injection or drainage. ENT: Nose without bleeding, purulent drainage. Throat without erythema, tonsillar hypertrophy or exudate. Airway patent. NECK: Trachea midline. Non tender CARDIOVASCULAR: Regular rate and rhythm without murmurs, gallops, or rubs. RESPIRATORY: Clear to auscultation. Breath sounds equal bilaterally. No wheezes, rales, or rhonchi. GASTROINTESTINAL: Abdomen soft, Mild tenderness across the lower abdomen nondistended. EXTREMITIES: No edema or joint tenderness. BACK: Nontender without deformity or crepitance. No flank tenderness. NEURO: AOx3. SKIN: No rash or erythema of visible areas Initial Vital Signs Initial Vital Signs: Vital Signs Temperature 99.6 F 05/05/21 16:30 Pulse Rate 95 H 05/05/21 16:30 Respiratory Rate 18 05/05/21 16:30 Blood Pressure 177/94 H 05/05/21 16:30 Pulse Oximetry 97 05/05/21 16:30 Course Orders Ordered: ED Orders 05/05/21 16:34 EKG-12 Lead Stat 05/05/21 16:41 Complete Blood Count AUTO DIFF Stat Comprehensive Metabolic Panel Stat Lipase Stat 05/05/21 19:48 CT abdomen pelvis w con Stat Discontinued Medications Hydrocodone Bitart/Acetaminophen (Hydrocodone/Acet 5/325 Prepack) 1 bottle MISC SEEINSTR ONE Stop: 05/05/21 21:40 Last Admin: 05/05/21 21:46 Dose: 1 bottle Documented by: VERN Amoxicillin/Clavulanate Potassium (Amoxicillin/Clav 875/125 Mg) 1 tab PO NOW ONE Stop: 05/05/21 21:40 Last Admin: 05/05/21 21:46 Dose: 1 tab Documented by: VERN Hydromorphone HCl (Hydromorphone 0.5 Mg Inj) 0.5 mg IV NOW ONE Stop: 05/05/21 19:47 Last Admin: 05/05/21 19:55 Dose: 0.5 mg Documented by: VERN Ondansetron HCl (Ondansetron 4 Mg Odt Prepack) 1 bottle MISC SEEINSTR ONE Stop: 05/05/21 21:40 Last Admin: 05/05/21 21:46 Dose: 1 bottle Documented by: VERN Vital Signs Vital signs: Vital Signs - 8 hr 05/05/21 19:41 05/05/21 19:42 05/05/21 20:00 Pulse Rate 78 81 79 Blood Pressure 170/74 H Pulse Oximetry 98 98 97 05/05/21 20:16 05/05/21 20:30 05/05/21 21:00 Pulse Rate 78 72 73 Blood Pressure 157/67 H 153/70 H Pulse Oximetry 97 96 97 05/05/21 21:01 05/05/21 21:30 Pulse Rate 73 71 Blood Pressure 136/101 H 135/63 Pulse Oximetry 96 96 MDM - Abdominal Pain Lab Data Result diagrams: 05/05/21 16:41 05/05/21 16:41 Labs: Lab Results 05/05/21 05/05/21 Range/Units 16:41 16:41 WBC 10.8 (4.5-11.0) X10^3/uL RBC 3.87 L (4.0-5.2) X10^6/uL Hgb 12.6 (12.0-16.0) g/dL Hct 37.6 (36-46) % MCV 97.0 (80-100) fL MCH 32.5 (26-34) PG MCHC 33.5 (30-36) % RDW 12.9 (11.6-14.8) % Plt Count 215 (150-400) X10^3/uL Neut % (Auto) 78.1 H (50-75) % Lymph % (Auto) 11.9 L (25-40) % Graves % (Auto) 8.7 (3-14) % Eos % (Auto) 0.8 L (2-4) % Baso % (Auto) 0.5 (0-2) % Neut # (Auto) 8400 H (2906-9366) /uL Lymph # (Auto) 1300 (4985-6599) /uL Graves # (Auto) 900 (0-900) /uL Eos # (Auto) 100 (0-450) /uL Baso # (Auto) 100 (0-100) /uL Sodium 137 (137-145) mmol/L Potassium 4.1 (3.4-5.1) mmol/L Chloride 103 (98-107) mmol/L Carbon Dioxide 26 (22-32) mmol/L BUN 9 (7-17) mg/dL Creatinine 0.73 (0.52-1.04) mg/dL Estimated GFR > 60.0 (>60) mL/min BUN/Creatinine Ratio 12.3 (6-22) Glucose 115 H (80-110) mg/dL Calcium 9.8 (8.4-10.2) mg/dL Total Bilirubin 0.6 (0.2-1.3) mg/dL AST 37 H (14-36) IU/L ALT 41 H (<35) IU/L Alkaline Phosphatase 86 (38-126) U/L Total Protein 7.6 (6.3-8.2) g/dL Albumin 4.4 (3.5-5.0) g/dL Globulin 3.2 (1.7-4.1) g/dL Albumin/Globulin Ratio 1.4 (1.0-2.8) Lipase 60 (23-300) U/L Point of care testing: Urine Dip Bedside Urine Glucose Negative Bedside Urine Bilirubin - Negative Bedside Urine Ketone - Negative Urine Specific [place] 1.025 Bedside Urine Occult Blood - Negative Bedside Urine pH 6 Bedside Urine Protein - Negative Bedside Urine Urobilinogen - Negative Bedside Urine Nitrite - Negative Bedside Urine Leukocytes - Negative Esterase Imaging Data CT scan - abdomen/pelvis: Radiologist's Impression: [address] [id number] Scan ReportSigned Patient: Katya Mancilla LMR#: [id number]: 6Acct:[id number]/Sex: 76 / FDate of Service: 05/05/21Loc: EDAccession Number: [id number] Procedure: CT abdomen pelvis w con Ordering Provider: Mikael Mark D.O. PROCEDURE: CT ABDOMEN PELVIS W CON INDICATIONS: severe abdominal pain TECHNIQUE: After the administration of intravenous contrast, axial sections acquired from the lung bases to the pubic symphysis. Coronal and sagittal reformats were performed. For radiation dose reduction, the following was used: automated exposure control, adjustment of mA and/or kV according to patient size. COMPARISON: None. FINDINGS: Image quality: Excellent. Lung bases: Unremarkable. Heart: No significant findings. ABDOMEN: Liver: Liver is enlarged measuring 15.3 cm with steatosis. Gallbladder: Gallbladder is unremarkable. Biliary ducts: Unremarkable. Pancreas: Unremarkable. Spleen: Unremarkable. Adrenal Glands: Unremarkable. Kidneys and Ureters: Unremarkable. Stomach and Bowel: Stomach, small bowel loops, and colon are nonobstructive. There is marked thickening of the descending colon with colonic diverticula. Pericolonic stranding is present. Minimal free fluid is present. Peritoneum: No abnormal intraperitoneal fluid. No free air. Ventral Wall: Fat containing umbilical hernia is noted. Abdominal Nodes: No retroperitoneal or mesenteric adenopathy by size criteria. Vessels: Aorta and inferior vena cava are normal in size. PELVIS: Pelvic Organs: Unremarkable. Bladder: Unremarkable. Pelvic Nodes: No enlarged lymph nodes. Miscellaneous: No hernias are seen. Bones: Unremarkable. IMPRESSION: 1. Sigmoid colonic thickening with inflammatory change and diverticula most consistent with colitis secondary to diverticulitis. Minimal scattered free fluid is present without abscess. Dictated by: Subha Nicholas M.D. on 05/05/2021 at 20:42 Approved by: Subha Nicholas M.D. on 05/05/2021 at 20:46 MDM Narrative Medical decision making narrative: patient's pain is well controlled, imaging demonstrates diverticulitis without perforation or abscess. Labs are very reassuring as are vitals. She is appropriate for discharge and agrees with this plan. Prescriptions have been sent to her pharmacy. Return precautions discussed at length and questions answered to her apparent satisfaction Discharge Plan Departure Patient Disposition: Home Clinical Impression: Diverticulitis Instructions: DI for Diverticulitis Activity Restrictions/Additional Instructions: *You have been diagnosed with [diverticulitis] *What to do: *Please continue to take your regular medications as directed. [ x] New medication prescriptions sent to your pharmacy: [[facility]] [ ] New medication written as a paper prescription [ ] No new medications given *Please follow up with your primary care provider in 2-3 days, call for an appointment. Let them know you were seen in the Emergency Department and that we ask that you be seen in follow up. We will electronically transmit a record of today's note if your PCP is in our system *If you do not have a primary care provider please contact the [facility] Resource line at [phone]. They will ask some questions about your medical history and help get you set up with a doctor in the community. *Return to Emergency Department if you should have any new, worsening or concerning symptoms, such as [fever greater than 101 F, shaking chills, worsening pain, persistent vomiting or other bothersome symptoms] Prescriptions: New hydrocodone-acetaminophen 5-325 mg tablet 1 tab PO Q4-6H PRN (Reason: pain) Qty: 10 RF: 0 ondansetron 4 mg tablet,disintegrating 4 mg PO TID-QID PRN (Reason: nausea and vomiting) Qty: 10 RF: 0 amoxicillin-pot clavulanate [Augmentin] 875-125 mg tablet 1 tab PO BID Qty: 20 RF: 0 No Action [ESTRIOL/PROGES] 0 Qty: 45 RF: 0 (DME) inhalational spacing device [E-Z Spacer] spacer See Dose Instructions .ROUTE .MEDSUPPLY Qty: 1 RF: 0 Dulera 200-5 mcg/actuation Hfa Aerosol Inhaler 2 puff INHALATION DAILY RF: 0 acyclovir 400 MG tablet 400 mg PO DAILY RF: 0 albuterol sulfate [Proventil HFA] 90 MCG/PUFF HFA aerosol inhaler 2 puff INH Q4-6H PRN (Reason: Dyspnea) RF: 0 ketorolac 0.5 % drops 1 drp ophthalmic (eye) DIRECTED RF: 0 prednisolone acetate 1 % drops,suspension 1 drp ophthalmic (eye) DIRECTED RF: 0 zolpidem 5 MG tablet 2.5 - 5 mg PO BEDTIME RF: 0 losartan [Cozaar] 100 MG tablet 50 mg PO DAILY RF: 0 albuterol sulfate 90 mcg/actuation HFA aerosol inhaler 2 puff INHALATION Q4-6H PRN (Reason: shortness of breath or wheezing) Qty: 18 RF: 0 atorvastatin [Lipitor] 10 mg tablet 20 mg PO BEDTIME RF: 0 omeprazole 20 mg capsule,delayed release(DR/EC) 20 mg PO BID RF: 0 calcium 1 tab PO BID RF: 0 acetaminophen [Tylenol Extra Strength] 500 mg tablet 1,000 mg PO Q6H PRN (Reason: Pain) RF: 0 bioflavonoids 1 tab PO DAILY RF: 0 tramadol 50 mg tablet 50 mg PO TID PRN (Reason: pain) Qty: 30 RF: 1 Referrals: Suly Griffin PA-C [Primary Care Provider] -
--- NOTE | 2021-05-05 19:48 | DI.CT.S_ITS ---
PROCEDURE: CT ABDOMEN PELVIS W CON INDICATIONS: severe abdominal pain TECHNIQUE: After the administration of intravenous contrast, axial sections acquired from the lung bases to the pubic symphysis. Coronal and sagittal reformats were performed. For radiation dose reduction, the following was used: automated exposure control, adjustment of mA and/or kV according to patient size. COMPARISON: None. FINDINGS: Image quality: Excellent. Lung bases: Unremarkable. Heart: No significant findings. ABDOMEN: Liver: Liver is enlarged measuring 15.3 cm with steatosis. Gallbladder: Gallbladder is unremarkable. Biliary ducts: Unremarkable. Pancreas: Unremarkable. Spleen: Unremarkable. Adrenal Glands: Unremarkable. Kidneys and Ureters: Unremarkable. Stomach and Bowel: Stomach, small bowel loops, and colon are nonobstructive. There is marked thickening of the descending colon with colonic diverticula. Pericolonic stranding is present. Minimal free fluid is present. Peritoneum: No abnormal intraperitoneal fluid. No free air. Ventral Wall: Fat containing umbilical hernia is noted. Abdominal Nodes: No retroperitoneal or mesenteric adenopathy by size criteria. Vessels: Aorta and inferior vena cava are normal in size. PELVIS: Pelvic Organs: Unremarkable. Bladder: Unremarkable. Pelvic Nodes: No enlarged lymph nodes. Miscellaneous: No hernias are seen. Bones: Unremarkable. IMPRESSION: 1. Sigmoid colonic thickening with inflammatory change and diverticula most consistent with colitis secondary to diverticulitis. Minimal scattered free fluid is present without abscess. Dictated by: Subha Nicholas M.D. on 05/05/2021 at 20:42 Approved by: Subha Nicholas M.D. on 05/05/2021 at 20:46
[2021-05-05] MEDS: HYDROMORPHONE 0.5 MG INJ IV (19:55)
[2021-05-05] MEDS: AMOXICILLIN/CLAV 875/125 MG 1 TAB PO (21:46)
[2021-05-05] MEDS: ONDANSETRON 4 MG ODT PREPACK 1 BOTTLE MISC (21:46)
[2021-05-05] MEDS: HYDROCODONE/ACET 5/325 PREPACK 1 BOTTLE MISC (21:46)
== END 2021-05-05 21:58 | disposition home or self-care (01) ==
PROVIDERS: Emergency Medicine; Emergency Provider Emergency Medicine; PCP Physician Assistant; Referring Provider Physician Assistant
DX: K57.92 Diverticulitis of intestine, part unspecified, without perforation or abscess without bleeding (principal)
CPT/HCPCS: 36415; 74177; 80053; 81003; 83690; 85025; 93005; 93010; 96374; 99284; J1170; Q9967

== ENCOUNTER → 2021-07-30 11:35 | Outpatient (CLI) | payer MEDICARE, SELFPAY ==
[2018-06-13 10:06] VITALS: BMI 28.9
--- NOTE | 2021-07-30 | DI.RAD.S_ITS ---
PROCEDURE: XR DEXA AXIAL SKELETON INDICATIONS: SCREENING COMPARISON: [facility], CR, XR DEXA AXIAL SKELETON, 03/15/2019, 13:29. FINDINGS: This blank DEXA report has been sent in error by the PACS system. The correct and complete report will be forthcoming in 1-2 days. Thank you for your patience and understanding. Dictated by: James Quintero M.D. on 07/30/2021 at 12:32 Approved by: James Quintero M.D. on 07/30/2021 at 12:32
== END ==
PROVIDERS: PCP Physician Assistant; Referring Provider Physician Assistant; Visit Provider Physician Assistant
DX: Z13.820 Encounter for screening for osteoporosis (principal); Z78.0 Asymptomatic menopausal state; M85.88 Other specified disorders of bone density and structure, other site; M85.851 Other specified disorders of bone density and structure, right thigh
CPT/HCPCS: 77080

== ENCOUNTER → 2021-12-11 06:37 | Outpatient (CLI) | payer MEDICARE, SELFPAY ==
[2018-06-13 10:06] VITALS: BMI 28.9
--- NOTE | 2021-12-11 08:23 | DI.CT.S_ITS ---
PROCEDURE: CT UE RT WO CON INDICATIONS: Impingement syndrome of right shoulder TECHNIQUE: Noncontrast 1-1.5 mm thick sections acquired from the acromioclavicular joint to the inferior scapula, with coronal and sagittal reformatting. COMPARISON: None. FINDINGS: Image quality: Excellent. Bones: Shoulder alignment is anatomic. Moderate acromioclavicular joint osteoarthritic changes are seen with joint space narrowing, subchondral sclerosis and downward osteophyte formation depressing on musculotendinous junction of supraspinatus. Mild to moderate glenohumeral joint osteoarthritic changes also seen. There is no suspicious intraosseous lesion. No fracture or dislocation. Visualized right upper ribs are grossly intact. Soft tissues: There is small amount of joint fluid and subacromial subdeltoid bursal fluid. No calcified intra-articular loose bodies. There is no gross full-thickness rotator cuff tendon rupture. Mild supraspinatus muscle atrophy is noted on sagittal images. No abnormal soft tissue calcifications. IMPRESSION: 1. Moderate acromioclavicular joint osteoarthritis and mild glenohumeral joint osteoarthritis. No fracture or dislocation. No suspicious intraosseous lesion. Type 2 acromion. 2. No full-thickness rotator cuff tendon rupture. Suggestion of mild supraspinatus muscle atrophy. 3. Small to moderate joint effusion and subacromial subdeltoid bursal fluid. No gross loose bodies. No abnormal soft tissue calcifications. Dictated by: Volodymyr Guzman M.D. on 12/11/2021 at 9:38 Approved by: Voldoymyr Guzman M.D. on 12/11/2021 at 9:40
== END ==
PROVIDERS: PCP Physician Assistant; Referring Provider Orthopaedic Surgery; Visit Provider Orthopaedic Surgery
DX: M19.011 Primary osteoarthritis, right shoulder (principal); M75.41 Impingement syndrome of right shoulder; M25.411 Effusion, right shoulder
CPT/HCPCS: 73200

== ENCOUNTER → 2022-08-05 09:57 | Outpatient (CLI) | payer MEDICARE, SELFPAY ==
[2018-06-13 10:06] VITALS: BMI 28.9
--- NOTE | 2022-08-05 | DI.RAD.S_ITS ---
PROCEDURE: XR SACROILIAC JOINT MIN 3V INDICATIONS: Other chronic pain TECHNIQUE: 3 views of the sacroiliac joints were acquired. COMPARISON: None. FINDINGS: Bones: No bony erosions or ankylosis. No suspicious bony lesions. No fractures. Mild degenerative osteoarthrosis of the sacroiliac joints bilaterally. Degenerative changes are also seen in the included lumbar spine. Soft tissues: Overlying bowel gas pattern is normal. No suspicious soft tissue densities. IMPRESSION: Mild bilateral sacroiliac joint osteoarthrosis. No radiographic signs of sacroiliitis. Dictated by: Jaime Rea M.D. on 08/05/2022 at 15:10 Approved by: Jaime Rea M.D. on 08/05/2022 at 15:11
--- NOTE | 2022-08-05 | DI.RAD.S_ITS ---
PROCEDURE: XR CERVICAL SPINE 2V OR 3V INDICATIONS: Other chronic pain TECHNIQUE: Three views of the cervical spine were acquired. COMPARISON: None. FINDINGS: Bones: No acute fractures or dislocations to the C7 level. The lateral masses of C1 appear intact on the odontoid view. No suspicious bony lesions. Multilevel mild disc space narrowing and degenerative endplate changes as well as multilevel uncovertebral joint and facet hypertrophy. Soft tissues: No prevertebral soft tissue swelling. IMPRESSION: Mild to moderate multilevel spondylosis.No acute osseous abnormality. If the symptoms persist, consider cross sectional imaging such as MRI or CT for further assessment. Dictated by: Jaime Rea M.D. on 08/05/2022 at 15:11 Approved by: Jaime Rea M.D. on 08/05/2022 at 15:17
--- NOTE | 2022-08-05 | DI.RAD.S_ITS ---
PROCEDURE: XR SHOULDER RT MIN 2V INDICATIONS: Other chronic pain TECHNIQUE: 3 views of the shoulder were acquired. COMPARISON: None. FINDINGS: Bones: No fractures or dislocations. No suspicious bony lesions. Visualized ribs appear intact. Mild AC joint hypertrophy. Soft tissues: No suspicious soft tissue calcifications. IMPRESSION: 1. No acute fracture or dislocation. 2. Degenerative changes of the acromioclavicular joint. 3. If symptoms persist, follow-up radiographs and/or CT or MRI may be helpful for further evaluation. Dictated by: Jaime Hill M.D. on 08/05/2022 at 13:36 Approved by: Jaime Hill M.D. on 08/05/2022 at 13:41
--- NOTE | 2022-08-05 | DI.RAD.S_ITS ---
PROCEDURE: XR SHOULDER LT MIN 2V INDICATIONS: Other chronic pain TECHNIQUE: 3 views of the shoulder were acquired. COMPARISON: None. FINDINGS: Bones: No fractures or dislocations. No suspicious bony lesions. Visualized ribs appear intact. Mild AC joint hypertrophy. Soft tissues: Possible minimal calcification projecting near the humeral head. Left chest pacemaker, leads partially imaged. IMPRESSION: 1. No acute fracture or dislocation. 2. Degenerative changes of the acromioclavicular joint. 3. Possible minimal calcification projecting near the humeral head could indicate sequela of calcific rotator cuff tendinopathy. 4. If symptoms persist, follow-up radiographs and/or CT or MRI may be helpful for further evaluation. Dictated by: Jaime Hill M.D. on 08/05/2022 at 13:42 Approved by: Jaime Hill M.D. on 08/05/2022 at 13:52
--- NOTE | 2022-08-05 | DI.RAD.S_ITS ---
PROCEDURE: XR HIP W PEL IF DONE RT 2V INDICATIONS: Other chronic pain TECHNIQUE: AP pelvis with lateral view(s) of the right hip(s). COMPARISON: [facility], CR, XR HIP W PEL IF DONE RT 2V, 07/09/2019, 14:09. [facility], CR, HIP 2V RIGHT, 12/15/2010, 12:20. FINDINGS: Bones: No fractures or dislocations. Pelvic ring appears intact. No suspicious bony lesions. Equivocal/minimal hip joint space narrowing bilaterally, not significantly changed. Soft tissues: The visualized bowel gas pattern is normal. No suspicious soft tissue calcifications. IMPRESSION: 1. No acute fracture or dislocation. 2. Equivocal/minimal degenerative changes of the hips, similar to before. Dictated by: Jaime Hill M.D. on 08/05/2022 at 13:52 Approved by: Jaime Hill M.D. on 08/05/2022 at 13:59
== END ==
PROVIDERS: PCP Physician Assistant; Referring Provider Physician Assistant; Visit Provider Physician Assistant
DX: M25.512 Pain in left shoulder (principal); G89.29 Other chronic pain; M79.10 Myalgia, unspecified site; M54.2 Cervicalgia; M53.3 Sacrococcygeal disorders, not elsewhere classified; M25.511 Pain in right shoulder; M16.0 Bilateral primary osteoarthritis of hip; M47.812 Spondylosis without myelopathy or radiculopathy, cervical region
CPT/HCPCS: 72040; 72202; 73030; 73502

== ENCOUNTER → 2022-09-22 13:37 | Outpatient (CLI) | payer MEDICARE, SELFPAY ==
[2018-06-13 10:06] VITALS: BMI 28.9
--- NOTE | 2022-09-22 | DI.CT.S_ITS ---
PROCEDURE: CT UPPER EXT RIGHT ARTHROGRAM INDICATIONS: SHOULDER IMPINGEMENT/RULE OUT ROTATOR CUFF TEAR TECHNIQUE: After the intra-articular administration of 12 mL of dilute non-ionic contrast, 1-1.5 mm thick sections acquired from the acromioclavicular joint to the inferior scapula, with coronal and sagittal reformatting. COMPARISON: None. FINDINGS: Image quality: Excellent. Bones: Shoulder alignment is anatomic. Moderate acromioclavicular joint osteoarthritic changes are seen with joint space narrowing, subchondral sclerosis and downward osteophyte formation depressing the mid skill 0 tendinous junction of supraspinatus. Mild glenohumeral joint osteoarthritic changes also seen with joint space narrowing and subchondral sclerosis. No acute fracture or dislocation. No suspicious intraosseous lesion. No gross abnormality is seen in visualized right upper ribs. Soft tissues: There is full-thickness rupture involving anterior to mid fibers of distal supraspinatus at its insertion on the humeral head with up to 2 cm medial retraction of torn tendon fibers and contrast-filled gap measures 1.6 cm in AP dimension. Contrast is seen extending to subacromial subdeltoid bursa. No gross intra-articular loose bodies. Mild supraspinatus muscle atrophy is seen on sagittal images. There is subtle contrast extension in superior anterior labrum at 12 to 1 o'clock position concerning for subtle superior anterior labral tear. Proximal intra-articular portion of long head of biceps tendon is grossly intact. No abnormal soft tissue calcifications. IMPRESSION: 1. Full-thickness rupture involving anterior to mid fibers of distal supraspinatus at its insertion on humeral head with up to 2 cm medial retraction of torn tendon fibers to the level of acromion and fluid-filled gap measures 1.6 cm in AP dimension. Mild supraspinatus muscle atrophy. 2. Suggestion of subtle superior anterior right shoulder labral tear at 12 to 1 o'clock position. 3. Moderate acromioclavicular joint osteoarthritis and mild glenohumeral joint osteoarthritis. No fracture or dislocation. No suspicious bony lesions. Dictated by: Volodymyr Guzman M.D. on 09/22/2022 at 21:19 Approved by: Volodymyr Guzman M.D. on 09/22/2022 at 21:22
--- NOTE | 2022-09-22 | DI.RAD.S_ITS ---
PROCEDURE: FL SHOULDER INJECTION MR/CT RT INDICATIONS: SHOULDER IMPINGEMENT/RULE OUT ROTATOR CUFF TEAR COMPARISON: None. TECHNIQUE: The indications, alternatives, benefits, risks, and complications of the procedure were explained to the patient. Written informed consent was obtained and placed in the chart. The shoulder was examined fluoroscopically and a site for needle placement chosen for entry into the glenohumeral joint from an anterior approach. The skin was prepped and draped in a sterile fashion, and 1% lidocaine infiltrated from skin down to joint capsule. A spinal needle was inserted into the glenohumeral joint, and a small amount of iodinated contrast media injected to confirm intra-articular placement of the needle tip. This was followed by approximately 12 mL of iodinated contrast. The needle was removed and a dressing was applied. The patient was given postprocedural instructions and sent to the CT suite for imaging. FINDINGS: A single fluoroscopic spot image demonstrates intra-articular location of injected iodinated contrast. IMPRESSION: Successful fluoroscopically guided administration of iodinated contrast solution into the shoulder joint for CT arthrogram. Dictated by: Asael Negrete M.D. on 09/30/2022 at 9:45 Approved by: Asael Negrete M.D. on 09/30/2022 at 9:45
== END ==
PROVIDERS: PCP Physician Assistant; Referring Provider Orthopaedic Surgery; Visit Provider Orthopaedic Surgery
DX: M75.121 Complete rotator cuff tear or rupture of right shoulder, not specified as traumatic (principal); M75.41 Impingement syndrome of right shoulder; M19.011 Primary osteoarthritis, right shoulder
CPT/HCPCS: 23350; 73201; 77002

== ENCOUNTER 2023-01-21 14:57 | Emergency (ER) | payer MEDICARE, SELFPAY ==
[2018-06-13 10:06] VITALS: BMI 28.9
[2023-01-21] VITALS (8 sets, daily range): BP systolic 150–172; BP diastolic 67–78; PULSE 68–75; RESP 14–44; TEMP 36.6; O2SAT 98–100; BMI 27.2
--- NOTE | 2023-01-21 15:09 | DI.RAD.S_ITS ---
PROCEDURE: XR CHEST 1V INDICATIONS: chest pain TECHNIQUE: One view of the chest was acquired. COMPARISON: [facility], CR, XR CHEST 2V, 01/14/2021, 16:34. [facility], CR, XR CHEST 1V, 01/13/2021, 17:44. FINDINGS: Surgical changes and devices: Cardiac pacemaking device with dual chamber leads stable in appearance. Lungs and pleura: Lungs are clear. No pleural effusions or pneumothorax. Mediastinum: Mediastinal contours appear normal. Heart size is normal. Bones and chest wall: No suspicious bony lesions. Overlying soft tissues appear unremarkable. IMPRESSION: Source of new chest pain is not found. Pacemaker and leads appear normal. Dictated by: Yamil Rucker M.D. on 01/21/2023 at 15:42 Approved by: Yamil Rucker M.D. on 01/21/2023 at 15:42
--- NOTE | 2023-01-21 15:22 | PC.NURSE ---
Patient ambulated in lobby and states she did not feel dizzy or lightheaded at all.
[2023-01-21 15:38] LABS: Prothrombin Time 11.6 SECONDS (10.1-12.7)
[2023-01-21 15:39] LABS: Add Manual Diff / Slide Review NO; Basophils Absolute Auto 0 /uL (0-100); Basophils Percent Auto 0.8 % (0-2); Eosinophils Absolute Auto 200 /uL (0-450); Eosinophils Percent Auto 2.9 % (2-4); Hematocrit 35.7 % (36-46); Hemoglobin 12.1 g/dL (12.0-16.0); Lymphocytes Absolute Auto 1700 /uL (1100-4500); Lymphocytes Percent Auto 30.5 % (25-40); Mean Corpuscular Hemoglobin 32.5 PG (26-34); Mean Corpuscular Volume 95.4 fL (80-100); Monocytes Absolute Auto 600 /uL (0-900); Monocytes Percent Auto 10.3 % (3-14); Neutrophils Absolute Auto 3000 /uL (1500-7000); Neutrophils Percent Auto 55.5 % (50-75); Platelet Count 225 X10^3/uL (150-400); Red Blood Cell Count 3.74 X10^6/uL (4.0-5.2); Red Cell Distribution Width 12.4 % (11.6-14.8); White Blood Cell Count 5.5 X10^3/uL (4.5-11.0)
[2023-01-21 15:41] LABS: PTT Partial Thromboplastin Tim 28 SECONDS (26-36)
[2023-01-21 16:02] LABS: Alanine Aminotransferase 44 IU/L (<35); Albumin 4.5 g/dL (3.5-5.0); Albumin Globulin Ratio 1.7 (1.0-2.8); Alkaline Phosphatase 61 U/L (38-126); Aspartate Aminotransferase 42 IU/L (14-36); BUN Creatinine Ratio 34.8 (6-22); Bilirubin Total 0.5 mg/dL (0.2-1.3); Blood Urea Nitrogen 31 mg/dL (7-17); Calcium 9.2 mg/dL (8.4-10.2); Carbon Dioxide 27 mmol/L (22-32); Chloride 101 mmol/L (98-107); Creatine Kinase 82 U/L (30-135); Estimated Glomerular Filt Rate > 60 mL/min (>60); Globulin 2.7 g/dL (1.7-4.1); Glucose 100 mg/dL (80-110); HEMOLYSIS 16 (0-50); Lipase 149 U/L (23-300); Magnesium 2.2 mg/dL (1.6-2.3); Potassium 4.1 mmol/L (3.4-5.1); Sodium 135 mmol/L (137-145); Total Protein 7.2 g/dL (6.3-8.2)
[2023-01-21 16:14] LABS: Troponin I < 0.012 ng/mL (0.01-0.034)
--- NOTE | 2023-01-21 18:13 | ED.SOB ---
HPI - SOB/Dyspnea General Chief Complaint: Dizziness Stated Complaint: Oxy 82, HR 44, Dizziness, Cold sweats Time Seen by Provider: 01/21/23 18:02 History of Present Illness HPI Narrative: 77-year-old female former smoker with history of hypertension, COPD, anxiety, and pacemaker for second-degree block presents due to abnormal vital signs upon arrival at a regularly scheduled primary care appointment this afternoon. She states that she was in her normal state of health and walked 9 blocks from home outside in the cold and when they checked her pulse ox on her fingers they noted it to be significantly low and it suggested a low heart rate as well. She reports to have had an EKG in the office which showed a heart rate in the 70s and states that she was feeling fine. She states that she is had trouble with pulse ox reading her fingers when called in the past. She continues to feel fine and well. She is not dizzy nor weak or lightheaded. She denies any chest pain or shortness of breath. She is had no cough, abdominal pain nor nausea, vomiting or diarrhea. Related Data Home Medications Medication Instructions Recorded Confirmed acyclovir 400 mg tablet 400 mg PO DAILY 01/02/20 01/21/23 albuterol sulfate 90 mcg/actuation 2 puff INH Q4-6H PRN Dyspnea 01/16/20 01/21/23 aerosol inhaler (Proventil HFA) losartan 100 mg tablet (Cozaar) 100 mg PO DAILY 07/31/21 01/21/23 celecoxib [Celebrex] PO 09/07/22 01/21/23 [ESTRIOL/PROGES] See Rx Instructions vaginal QWEEK 10/28/22 01/21/23 acetaminophen 650 mg 1,300 mg PO BEDTIME 10/28/22 01/21/23 tablet,extended release (Tylenol Arthritis Pain) biotin 10 mg tablet 10 mg PO DAILY 10/28/22 01/21/23 budesonide-formoterol HFA 80 2 puff inhalation Q12H 10/28/22 01/21/23 mcg-4.5 mcg/actuation aerosol inhaler (Symbicort) famotidine 10 mg tablet 10 mg PO DAILY 10/28/22 01/21/23 rosuvastatin 40 mg PO DAILY 10/28/22 01/21/23 timolol 0.5 % eye drops 1 drp EYE-BOTH DAILY 10/28/22 01/21/23 Previous Rx's Medication Instructions Recorded inhalational spacing device (E-Z #1 ea 05/10/18 Spacer) cyclobenzaprine 10 mg tablet 10 mg PO TID PRN muscle spasm #90 12/24/22 tabs tramadol 50 mg tablet 50 mg PO Q8H PRN pain #90 tabs 12/24/22 furosemide 20 mg tablet 20 mg PO DAILY edema #30 tabs 01/12/23 Allergies Allergy/AdvReac Type Severity Reaction Status Date / Time meloxicam Allergy Pitting Verified 01/21/23 15:08 Edema lisinopril AdvReac Mild COUGH Verified 01/21/23 15:08 Review of Systems Review of Systems Narrative: GENERAL: Denies chills, fatigue, malaise, fever, sweats. HEENT: Denies sinus pain, ear pain, sore throat, difficulty swallowing, dizziness. RESPIRATORY: Denies dyspnea, cough, wheezing, hemoptysis, sputum. CARDIOVASCULAR: Denies chest pain, palpitations, orthopnea, edema, GASTROINTESTINAL: Denies nausea, vomiting, abdominal pain, diarrhea, constipation, melena. : Denies dysuria, frequency, incontinence, hematuria, urinary retention. MUSCULOSKELETAL: denies weakness, joint pain, or bony pain SKIN: Denies rash, skin lesions, or other NEUROLOGIC: Denies weakness, headache, numbness, change in speech, confusion, seizures, incoordination. PSYCHIATRIC: No concerning psychosocial issues. 12 point review of systems is negative except for those stated above Patient History Medical History Anxiety Asthma, moderate persistent, well-controlled (10/15/15) Atrophic vaginitis Bilateral lower extremity edema Chicken pox (~1949) Chronic back pain (~1979) Chronic left shoulder pain COPD (chronic obstructive pulmonary disease) (~2016) Depression (~2005) Diverticular disease (~2020) Essential hypertension (02/22/13) Fragile skin Genital warts (~1989) GERD (gastroesophageal reflux disease) (~2009) Glaucoma (~2019) Herpes (~1989) History of urinary incontinence (~2015) Human papilloma virus (~1989) Hyperlipidemia (02/22/13) Hypoxia Insomnia (~1989) Lightheadedness Lumbar region somatic dysfunction Measles (~1949) Mumps (~1950) Obstructive sleep apnea, adult (~07/21/21) Osteopenia Pelvic somatic dysfunction Pneumothorax (~2020) Sacral region somatic dysfunction Second degree heart block (~2020) Segmental and somatic dysfunction of abdomen and other regions Shoulder pain (~2008) Somatic dysfunction of lower extremity Vertigo (~2009) Surgical History Anesthesia History of cardiac pacemaker in situ (~01/13/21) History of cataract removal with insertion of prosthetic lens (~2019) Status post vaginal hysterectomy (~2008) Family History Brother Diabetes mellitus Hypertension Obesity Father Colon cancer Mother History of heart disease Atrial fibrillation Platelet disorder Parkinson's disease Grandfather History of heart disease Grandmother Flu Grandfather History of heart disease Grandmother No problems noted. Family/Other Diabetes mellitus Hypertension Social History household members: spouse Smoking Status: Former smoker Tobacco: How many years used: 1 alcohol intake: current Smoking Status: Former smoker alcohol intake frequency: 0-2 drinks per day Alcohol type: wine Substance Use Type: does not use Exam Narrative Exam Narrative: GENERAL: [77] year old patient appears stated age. Well-developed patient, in mild distress. HEAD: Atraumatic. Normocephalic. EYES: Pupils equal round and reactive. Extraocular motions intact. No scleral icterus. No injection or drainage. ENT: Nose without bleeding, purulent drainage. Throat without erythema, tonsillar hypertrophy or exudate. Airway patent. NECK: Trachea midline. Non tender CARDIOVASCULAR: Regular rate and rhythm without murmurs, gallops, or rubs. RESPIRATORY: Clear to auscultation. Breath sounds equal bilaterally. No wheezes, rales, or rhonchi. GASTROINTESTINAL: Abdomen soft, non-tender, nondistended. EXTREMITIES: No edema or joint tenderness. BACK: Nontender without deformity or crepitance. No flank tenderness. NEURO: AOx3. SKIN: No rash or erythema of visible areas Initial Vital Signs Initial Vital Signs: Vital Signs Temperature 98 F 01/21/23 15:04 Pulse Rate 71 01/21/23 15:04 Respiratory Rate 17 01/21/23 15:04 Blood Pressure 150/67 H 01/21/23 15:04 Pulse Oximetry 98 01/21/23 15:04 Oxygen Delivery Method Room Air 01/21/23 15:04 Course Orders Ordered: ED Orders 01/21/23 15:09 XR chest 1V Stat EKG-12 Lead Stat 01/21/23 15:20 Complete Blood Count AUTO DIFF Stat Comprehensive Metabolic Panel Stat Lipase Stat Magnesium Stat PTT Partial Thromboplastin Sukhdeep Stat Prothrombin Time INR Stat Troponin & CK Cardiac Panel Stat Vital Signs Vital signs: Vital Signs - 8 hr 01/21/23 18:30 01/21/23 18:31 01/21/23 18:31 Pulse Rate 72 73 Respiratory Rate 15 19 Blood Pressure 164/74 H Pulse Oximetry 98 100 MDM - SOB/Dyspnea Lab Data 01/21/23 15:20 01/21/23 15:20 Labs: Lab Results 01/21/23 01/21/23 01/21/23 Range/Units 15:20 15:20 15:20 WBC 5.5 (4.5-11.0) X10^3/uL RBC 3.74 L (4.0-5.2) X10^6/uL Hgb 12.1 (12.0-16.0) g/dL Hct 35.7 L (36-46) % MCV 95.4 (80-100) fL MCH 32.5 (26-34) PG MCHC 34.0 (30-36) % RDW 12.4 (11.6-14.8) % Plt Count 225 (150-400) X10^3/uL Neut % (Auto) 55.5 (50-75) % Lymph % (Auto) 30.5 (25-40) % Faulk % (Auto) 10.3 (3-14) % Eos % (Auto) 2.9 (2-4) % Baso % (Auto) 0.8 (0-2) % Neut # (Auto) 3000 (7253-5417) /uL Lymph # (Auto) 1700 (2614-1932) /uL Faulk # (Auto) 600 (0-900) /uL Eos # (Auto) 200 (0-450) /uL Baso # (Auto) 0 (0-100) /uL PT 11.6 (10.1-12.7) SECONDS INR 1.0 (0.9-1.3) APTT 28 (26-36) SECONDS Sodium 135 L (137-145) mmol/L Potassium 4.1 (3.4-5.1) mmol/L Chloride 101 (98-107) mmol/L Carbon Dioxide 27 (22-32) mmol/L BUN 31 H (7-17) mg/dL Creatinine 0.89 (0.52-1.04) mg/dL Estimated GFR > 60 (>60) mL/min BUN/Creatinine Ratio 34.8 H (6-22) Glucose 100 (80-110) mg/dL Calcium 9.2 (8.4-10.2) mg/dL Magnesium 2.2 (1.6-2.3) mg/dL Total Bilirubin 0.5 (0.2-1.3) mg/dL AST 42 H (14-36) IU/L ALT 44 H (<35) IU/L Alkaline Phosphatase 61 (38-126) U/L Total Creatine Kinase 82 (30-135) U/L CK-MB (CK-2) TNP CK-MB (CK-2) Rel Index TNP Troponin I < 0.012 (0.01-0.034) ng/mL Total Protein 7.2 (6.3-8.2) g/dL Albumin 4.5 (3.5-5.0) g/dL Globulin 2.7 (1.7-4.1) g/dL Albumin/Globulin Ratio 1.7 (1.0-2.8) Lipase 149 (23-300) U/L Imaging Data Chest x-ray: Radiologist's Impression: No acute process ECG Data Interpretation: Paced, rate 68, no ectopy or drop beats MDM Narrative Medical decision making narrative: CC: Abnormal vital signs on arrival to primary care office Complicating co-morbidities: Age, history hypertension, COPD, pacemaker Data collected from: Patient Medical records reviewed: Prior notes reviewed in our EMR Differential considered, but not limited to: Electrolyte abnormality, CHF, cardiac ischemia, pacemaker problem Exam documented above, pertinent findings include: No obvious abnormal findings Lab Test results independently reviewed as above. Pertinent findings: No leukocytosis, anemia or left shift, electrolytes including renal function and cardiac enzymes within normal Independently reviewed EKG as above Imaging studies independently reviewed: Chest x-ray without acute findings Consultations: Pacemaker interrogated, pacing without difficulty, no tachyarrhythmias, lowest recorded rate in the mid 60s Treatments: None Re-evaluations: Remains at baseline Discussion: Patient here for abnormal vital signs that have not been reproduced and in the absence of symptoms. It is likely that her fingers recalled. She is not dizzy nor weak or lightheaded, has a reassuring history and physical exam, EKG shows a paced rhythm, pacer has been interrogated and there is no abnormal finding. Labs are reassuring without abnormal findings. Chest x-ray is clear Disposition: see below, along with detailed discharge instructions that have been reviewed with patient as well as indications for ED re-evaluation and additional outpatient follow up Discharge Plan Departure Patient Disposition: Home Clinical Impression: Acute dyspnea Activity Restrictions/Additional Instructions: *You have been diagnosed with [abnormal vital signs, as we discussed your vitals here have been reassuring, history and physical exam as well as labs, EKG, chest x-ray and pacemaker interrogation are very reassuring and no significant abnormality is noted] *What to do: *Please continue to take your regular medications as directed. [ ] New medication prescriptions sent to your pharmacy: [ ] [ ] New medication written as a paper prescription [ ] No new medications given *Please follow up with your primary care provider in 2-3 days, call for an appointment. Let them know you were seen in the Emergency Department and that we ask that you be seen in follow up. We will electronically transmit a record of today's note if your PCP is in our system *If you do not have a primary care provider please contact the [facility] Resource line at [phone]. They will ask some questions about your medical history and help get you set up with a doctor in the community. *Return to Emergency Department if you should have any new, worsening or concerning symptoms, such as [fever greater than 101 F, shaking chills, worsening pain, persistent vomiting or other bothersome symptoms] Prescriptions: No Action celecoxib [Celebrex] PO rosuvastatin 40 mg PO DAILY (DME) inhalational spacing device [E-Z Spacer] spacer See Dose Instructions .ROUTE .MEDSUPPLY Qty: 1 0RF Dose Instruction: As directed Rx Instructions: As directed furosemide 20 mg tablet 20 mg PO DAILY Qty: 30 5RF budesonide-formoterol [Symbicort] 80-4.5 mcg/actuation HFA aerosol inhaler 2 puff inhalation Q12H timolol 0.5 % drops 1 drp EYE-BOTH DAILY famotidine 10 mg tablet 10 mg PO DAILY biotin 10 mg tablet 10 mg PO DAILY acetaminophen [Tylenol Arthritis Pain] 650 mg tablet extended release 1,300 mg PO BEDTIME [ESTRIOL/PROGES] See Rx Instructions vaginal QWEEK Rx Instructions: 1mg/8mg suppository vaginally every week; tramadol 50 mg tablet 50 mg PO Q8H PRN (Reason: pain) Qty: 90 0RF cyclobenzaprine 10 mg tablet 10 mg PO TID PRN (Reason: muscle spasm) Qty: 90 1RF acyclovir 400 MG tablet 400 mg PO DAILY albuterol sulfate [Proventil HFA] 90 MCG/PUFF HFA aerosol inhaler 2 puff INH Q4-6H PRN (Reason: Dyspnea) losartan [Cozaar] 100 mg tablet 100 mg PO DAILY Referrals: Wade Archer DO [Primary Care Provider] - Stand Alone Forms: Patient Portal/API
== END 2023-01-21 18:37 | disposition home or self-care (01) ==
PROVIDERS: Emergency Medicine; Emergency Provider Emergency Medicine; PCP Family Medicine
DX: R06.00 Dyspnea, unspecified (principal); I10 Essential (primary) hypertension; R07.9 Chest pain, unspecified; R79.89 Other specified abnormal findings of blood chemistry; Z95.0 Presence of cardiac pacemaker; Z79.899 Other long term (current) drug therapy
CPT/HCPCS: 36415; 71045; 80053; 82550; 83690; 83735; 84484; 85025; 85610; 85730; 93005; 93010; 99283; 99284

== ENCOUNTER → 2023-02-09 10:39 | Outpatient (CLI) | payer MEDICARE, SELFPAY ==
[2018-06-13 10:06] VITALS: BMI 28.9
--- NOTE | 2023-02-09 10:54 | DI.DEXA.S_ITS ---
Bone Density Report Name: NICOLE HUSTON Age: 77 Sex: Female Ethnicity: White Date of : 1945 Indication: postmenopausal; screening for osteoporosis; history of glucocorticoids; Referring Provider: LM ZHENG Study: Bone densitometry was performed. Exam Date: February 09, 2023 Accession number: [id number] Bone Density: Region BMD T-score Z-score Classification AP Spine(L1, L2, L4) 0.898 -1.2 1.2 Osteopenia Femoral Neck (Left) 0.719 -1.2 1.0 Osteopenia Total Hip (Left) 0.829 -0.9 1.0 Normal Femoral Neck (Right) 0.725 -1.1 1.0 Osteopenia Total Hip (Right) 0.841 -0.8 1.1 Normal Total Hip Mean 0.835 -0.9 1.1 Normal World Health Organization criteria for BMD impression classify patients as: Normal (T-score at or above -1.0), Osteopenia (T-score between -1.0 and -2.5), or Osteoporosis (T-score at or below -2.5). 10-year Fracture Risk(1): Major Osteoporotic Fracture 17% Hip Fracture 3.5% Reported Risk Factors: [place] (), Neck BMD=0.719, BMI=28.7, glucocorticoids (1) FRAX(R) Version 3.08. Fracture probability calculated for an untreated patient. Fracture probability may be lower if the patient has received treatment. Previous Exams: -- Region Exam Age BMD T-score BMD Change BMD Change Date g/cm2 vs Baseline vs Previous -- AP Spine (L1-L2,L4) 02/09/2023 77 0.898 -1.2 -0.042 (-4.5%)# -0.042 (-4.5%)# 07/30/2021 76 0.940 -0.9 Total Hip(Left) 02/09/2023 77 0.829 -0.9 -0.038 (-4.4%)# -0.038 (-4.4%)# 07/30/2021 76 0.868 -0.6 Total Hip(Right) 02/09/2023 77 0.841 -0.8 -0.007 (-0.8%)# -0.007 (-0.8%)# 07/30/2021 76 0.848 -0.8 -- *Denotes significance at 95% confidence level, LSC for AP Spine = 0.022 g/cm2, LSC for Total Hip = 0.027 g/cm2 # Denotes dissimilar scan types or analysis methods Impression: The patient has low bone mass, based on the Total Spine T-score. The patient has an estimated ten-year risk of hip fracture of 3.5% and an estimated ten-year risk of major fracture of 17%, based on the WHO FRAX algorithm. The patient has risk factors, including: history of glucocorticoid therapy. No significant bone loss was observed. Discussion: BONE DENSITY IS LOW AT ONE OR MORE SKELETAL SITES. THE PATIENT'S BMD AND CLINICAL RISK FACTORS CONTRIBUTE TO THIS PATIENT'S INCREASED RISK OF FRACTURE. This patient's lowest T-score is low at one or more skeletal sites. It meets the World Health Organization's (WHO) criteria for ?low bone mass? (T-score between -1.0 and -2.5). The patient's 10-year risk of hip fracture as calculated by FRAX exceeds the threshold where pharmacological therapy is recommended by the National Osteoporosis Foundation (NOF). However, all treatment decisions require clinical judgment and consideration of individual patient factors, including patient preferences, comorbidities, previous drug use, risk factors not captured in the FRAX model (e.g., frailty, falls, vitamin D deficiency, increased bone turnover, interval significant decline in bone density) and possible under or overestimation of fracture risk by FRAX. The patient should follow a healthful lifestyle (good nutrition with adequate calcium and vitamin D, and appropriate weight-bearing exercise). Follow-Up: Consider a repeat BMD and Vertebral Fracture Assessment (VFA) exam in 2 years or sooner if medically necessary, to reassess this patient's status. Reported by: ALEX ESCOTO M.D. on 02/09/2023 11:03:00 AM.
== END ==
PROVIDERS: PCP Family Medicine; Referring Provider Family Medicine; Visit Provider Family Medicine
DX: Z13.820 Encounter for screening for osteoporosis (principal); Z78.0 Asymptomatic menopausal state; M85.88 Other specified disorders of bone density and structure, other site; Z90.710 Acquired absence of both cervix and uterus; Z92.23 Personal history of estrogen therapy
CPT/HCPCS: 77080

== ENCOUNTER → 2023-03-14 07:17 | Outpatient (CLI) | payer MEDICARE, SELFPAY ==
[2018-06-13 10:06] VITALS: BMI 28.9
[2023-03-14 08:54] LABS: Add Manual Diff / Slide Review NO; Basophils Absolute Auto 0 /uL (0-100); Basophils Percent Auto 1.1 % (0-2); Eosinophils Absolute Auto 200 /uL (0-450); Eosinophils Percent Auto 4.6 % (2-4); Hematocrit 34.7 % (36-46); Hemoglobin 11.9 g/dL (12.0-16.0); Lymphocytes Absolute Auto 1300 /uL (1100-4500); Lymphocytes Percent Auto 33.8 % (25-40); Mean Corpuscular HGB Conc 34.4 % (30-36); Mean Corpuscular Hemoglobin 32.6 PG (26-34); Mean Corpuscular Volume 94.9 fL (80-100); Monocytes Absolute Auto 400 /uL (0-900); Monocytes Percent Auto 10.1 % (3-14); Neutrophils Absolute Auto 2000 /uL (1500-7000); Neutrophils Percent Auto 50.4 % (50-75); Platelet Count 200 X10^3/uL (150-400); Red Blood Cell Count 3.66 X10^6/uL (4.0-5.2); Red Cell Distribution Width 13.7 % (11.6-14.8)
[2023-03-14 08:59] LABS: BUN Creatinine Ratio 25.8 (6-22); Blood Urea Nitrogen 23 mg/dL (7-17); Calcium 8.8 mg/dL (8.4-10.2); Carbon Dioxide 29 mmol/L (22-32); Chloride 104 mmol/L (98-107); Cholesterol 173 mg/dL (140-199); Estimated Glomerular Filt Rate > 60 mL/min (>60); Glucose 106 mg/dL (80-110); HDL Cholesterol 69 mg/dL (40-60); HEMOLYSIS < 15 (0-50); LDL Cholesterol Calculated 91 mg/dL (<100); Potassium 4.3 mmol/L (3.4-5.1); Sodium 136 mmol/L (137-145); Triglycerides 67 mg/dL (35-150)
== END ==
PROVIDERS: PCP Family Medicine; Referring Provider Internal Medicine Cardiovascular Disease; Visit Provider Internal Medicine Cardiovascular Disease
DX: E78.5 Hyperlipidemia, unspecified (principal); I47.20 Ventricular tachycardia, unspecified
CPT/HCPCS: 36415; 80048; 80061; 85025

== ENCOUNTER → 2023-05-12 08:16 | Outpatient (CLI) | payer MEDICARE, SELFPAY ==
[2018-06-13 10:06] VITALS: BMI 28.9
--- NOTE | 2023-05-12 | DI.ECHO.S_ITS ---
[facility]---------+ [facility] +---------+ : : [address] : : : : [id number] : : : : Phone: [phone]---------+ Echocardiogram Report + + :Name: NICOLE HUSTON Study Date: 05/12/2023 Height: 62 in : :[facility] ReadingLocation: Weight: 152 lb : : Gender: Female BSA: 1.7 m2 : :: 1945 Age: 78 yrs BP: 145/82 mmHg: :Reason For Study: DYSPNEA : :Ordering Physician: DEVAN, : :JANICE Performed By: Seema Blount : :Referring: JANICE GRAJEDA : + + Interpretation Summary 1) Normal left ventricular thickness and size with low normal systolic function (EF 50-55%). 2) Normal right ventricular size and function. There is a pacemaker lead in the right ventricle. 3) There is mild to moderate mitral regurgitation. 4) There is mild to moderate tricuspid regurgitation. 5) No prior Echo available for comparison. Procedure: A two-dimensional transthoracic echocardiogram with color flow and Doppler was performed. The study quality was technically adequate. There is no prior echocardiogram noted for this patient. The patient was in sinus rhythm with heart rates between 60-70 bpm during the exam. Left Ventricle: The left ventricle is normal in size and wall thickness. The ejection fraction is estimated to be 50-55%. Apical wall motion abnormality may reflect pacemaker activation. Diastolic parameters suggest a relaxation abnormality of the left ventricle, consistent with probable normal filling pressures. Right Ventricle: The right ventricle is normal in size and function. There is a pacemaker lead in the right ventricle. Atria: The left atrial size is normal. Right atrial size is normal. There is no Doppler evidence for an interatrial shunt. Mitral Valve: The mitral valve is normal in structure and function. There is mild mitral annular calcification. There is mild to moderate mitral regurgitation. Aortic Valve: The aortic valve is trileaflet. The aortic valve opens well. There is no aortic valve stenosis. No aortic regurgitation is present. Tricuspid Valve: The tricuspid valve is normal in structure and function. There is mild to moderate tricuspid regurgitation. The right ventricular systolic pressure is estimated to be at least 33 mmHg based on an estimated right atrial pressure of 3 mm Hg. Pulmonic Valve: The pulmonic valve leaflets are thin and pliable; valve motion is normal. There is no pulmonic valvular regurgitation. Great Vessels: The aortic root is normal size. The dimensions of the ascending aorta are normal. The IVC is of normal diameter and collapses greater than 50% with a sniff. This suggests a low right atrial pressure of 3 mm Hg. Pericardium/ Pleura There is no pericardial effusion. There is no pleural effusion. MMode/2D Measurements & Calculations LVIDd: 5.0 cm LVOT diam: 2.1 cm LVIDs: 3.7 cm Ao root diam: 2.9 cm FS: 26.6 % asc Aorta Diam: 3.2 cm EPSS: 0.86 cm Ao Arch Diam (Prox Trans): 2.7 cm IVSd: 0.91 cm LVPWd: 0.91 cm LV sosa. diameter/BSA (cm/m^2): 3.0 LV sys. diameter/BSA (cm/m^2): 2.2 LA A2 area: 16.9 cm2 RA long axis: 4.4 cm LA A4 area: 15.7 cm2 RA area: 12.8 cm2 LA length (vol): 4.4 cm RA vol: 31.6 ml LA vol: 51.8 ml RA : 18.6 ml/m2 LA vol index: 30.4 ml/m2 IVC diam: 1.9 cm RVD1 (basal): 3.8 cm RVD2 (mid): 3.2 cm TAPSE: 2.1 cm Doppler Measurements & Calculations Ao V2 max: 175.8 cm/sec LVOT Max Miguel: 117.4 cm/sec Ao V2 mean: 120.4 cm/sec LV V1 max P.5 mmHg Ao max P.4 mmHg LV V1 VTI: 28.1 cm Ao mean P.7 mmHg IVAN(I,D): 2.4 cm2 Ao V2 VTI: 40.8 cm IVAN(V,D): 2.3 cm2 sev ratio: 0.69 IVAN indexed to BSA (cm^2/m^2): 1.4 MV E max miguel: 72.3 cm/sec TR max miguel: 271.4 cm/sec MV A max miguel: 94.3 cm/sec TR max P.5 mmHg MV E/A: 0.77 PA V2 max: 86.3 cm/sec Med Peak E' Miguel: 4.4 cm/sec PA V2 mean: 68.3 cm/sec E/E' med: 16.4 PA mean P.9 mmHg Lat Peak E' Miguel: 3.7 cm/sec PA pr(Accel): 46.5 mmHg E/E' lat: 19.4 E/e' average: 17.9 MV dec time: 0.27 sec SV(OT): 96.2 ml Reading Physician:12:18 PM
--- NOTE | 2023-05-13 01:25 | DI.NM.S_ITS ---
DATE OF SERVICE: 05/12/2023 PROCEDURE PERFORMED: Pharmacologic vasodilator stress and rest myocardial perfusion imaging with gating to assess ejection fraction and regional wall motion. ORDERING PROVIDER: Maddie Grajeda MD INDICATIONS: The patient is a 78-year-old female with a history of nonsustained ventricular tachycardia, pacemaker, and new exertional dyspnea. PHARMACOLOGIC STRESS: Per protocol, 0.4 mg of regadenoson was infused with a normal hemodynamic response. She had no chest discomfort or other anginal symptoms with this. Her resting ECG shows sinus rhythm with a ventricular paced rhythm, precluding any ST-segment analysis. With stress, there were no significant arrhythmias. Per protocol, 25.2 millicuries of technetium-99m Myoview was injected and she was imaged 10 minutes later using the quantitated gated SPECT protocol. Earlier in the day while at rest, she had been injected with 11.6 millicuries of technetium- 99m Myoview and was imaged 15 minutes later, again using a gated SPECT acquisition protocol. RAW DATA: 1. There is fair myocardial tracer uptake with mild breast shadows noted which likely produce some attenuation artifact. The lung/heart ratio is normal at 0.39 with a normal TID ratio of 0.87. 2. Quantitated gated SPECT: Post-stress ejection fraction is estimated at 72% without any focal wall motion abnormality and specifically the distal anterior wall appears to have normal contractility. The resting ejection fraction is estimated at 59% with a slight apical wall motion abnormality which likely reflects pacemaker activation. Resting end-diastolic volume is normal at 103 mL. 3. Myocardial perfusion imaging: Post-stress supine images shows a fairly normal myocardial perfusion pattern although with a subtle defect in the distal anterior wall that does not extend to the apex but nearly completely resolves on the prone images, suggesting it most likely reflects breast attenuation artifact or pacemaker artifact. The resting images show a similar perfusion pattern except the distal anterior defect is more profound suggesting differential breast positioning or more prominent ventricular pacing. IMPRESSION: 1. Probable normal myocardial perfusion study. 2. Subtle, fixed distal anterior defect that resolves on prone imaging, most consistent with breast attenuation artifact or pacemaker artifact. There is no evidence for any myocardial ischemia or significant myocardial infarction. 3. Normal left ventricular systolic function although with an apical wall motion abnormality on the resting images that likely reflects pacemaker activation. 4. No angina with pharmacologic vasodilator stress. 5. Compared to the previous perfusion study from 06/25/2020, the distal anterior defect was less prominent on the previous study but the prone images appear very similar. The previous ejection fraction was 84% with an end- diastolic volume of 85 mL, suggesting slight interval left ventricular enlargement and less dynamic function, possibly due to the paced rhythm but otherwise there has been no significant change. AshligelyKatya david - BRIDGET/kelly/pietro doc#: [id number]/job#: [id number] dd: 05/12/2023 17:18:00 dt: 05/13/2023 01:10:00 DICTATING MD/COPIES TO: Jak Larsen MD; Maddie Grajeda MD COPIES MNE: CHANCE;
== END ==
PROVIDERS: PCP Family Medicine; Referring Provider Internal Medicine Cardiovascular Disease; Visit Provider Internal Medicine Cardiovascular Disease
DX: I08.1 Rheumatic disorders of both mitral and tricuspid valves (principal); R06.09 Other forms of dyspnea; I47.20 Ventricular tachycardia, unspecified; Z95.0 Presence of cardiac pacemaker
CPT/HCPCS: 78452; 93017; 93306; A9502; J2785

== ENCOUNTER 2023-06-07 06:53 | Day surgery (SDC) | payer MEDICARE, SELFPAY ==
[2018-06-13 10:06] VITALS: BMI 28.9
[2023-06-07 07:07] VITALS: BP 129/74; PULSE 61; RESP 16; TEMP 35.9; O2SAT 97; BMI 26.6
--- NOTE | 2023-06-07 08:03 | P.HP_ITS ---
History of Present Illness History of Present Illness Date Patient Seen: 06/07/23 Time Patient Seen: 08:03 Chief complaint: Dx Colonoscopy w/poss bx Narrative: 78-year-old woman with family history of colon cancer and polyps here for screening colonoscopy. Last colonoscopy 5 years ago. No abdominal pain nausea vomiting blood per rectum. [facility] Medical History (Updated 05/10/23 @ 14:01 by Wade Archer DO) Anxiety Asthma, moderate persistent, well-controlled (10/15/15) Atrophic vaginitis Bilateral lower extremity edema Cervical somatic dysfunction Chicken pox (~1949) Chronic back pain (~1979) Chronic left shoulder pain Chronic sacroiliac (SI) strain Colon polyps COPD (chronic obstructive pulmonary disease) (~2016) Cranial somatic dysfunction Depression (~2005) Diverticular disease (~2020) IZAGUIRRE (dyspnea on exertion) Essential hypertension (02/22/13) Fragile skin Genital warts (~1989) GERD (gastroesophageal reflux disease) (~2009) Glaucoma (~2019) Greater trochanteric bursitis of left hip Herpes (~1989) History of urinary incontinence (~2015) Human papilloma virus (~1989) Hyperlipidemia (02/22/13) Hypoxia Insomnia (~1989) Lightheadedness Lumbar region somatic dysfunction Measles (~1949) Mumps (~1949) Obstructive sleep apnea, adult (~07/21/21) Osteopenia Pelvic somatic dysfunction Pneumothorax (~2020) Right anterior shoulder pain Sacral region somatic dysfunction Second degree heart block (~2020) Segmental and somatic dysfunction of abdomen and other regions Shoulder pain (~2008) Somatic dysfunction of lower extremity Stiff neck Upper extremity somatic dysfunction Vertigo (~2009) Surgical History Anesthesia History of cardiac pacemaker in situ (~01/13/21) History of cataract removal with insertion of prosthetic lens (~2019) Status post vaginal hysterectomy (~2008) Family History Brother Diabetes mellitus Hypertension Obesity Father Colon cancer Mother History of heart disease Atrial fibrillation Platelet disorder Parkinson's disease Grandfather History of heart disease Grandmother Flu Grandfather History of heart disease Grandmother No problems noted. Family/Other Diabetes mellitus Hypertension Social History household members: spouse Smoking Status: Former smoker Tobacco: How many years used: 1 alcohol intake: current Meds Home Medications and Allergies Home Medications Medication Instructions Recorded Confirmed Type inhalational spacing device (E-Z #1 ea 05/10/18 05/10/23 Rx Spacer) acyclovir 400 mg tablet 400 mg PO DAILY 01/02/20 06/07/23 History albuterol sulfate 90 mcg/actuation 2 puff INH Q4-6H PRN Dyspnea 01/16/20 06/07/23 History aerosol inhaler (Proventil HFA) losartan 100 mg tablet (Cozaar) 100 mg PO DAILY 07/31/21 06/07/23 History [ESTRIOL/PROGES] See Rx Instructions vaginal QWEEK 10/28/22 06/07/23 History acetaminophen 650 mg 1,300 mg PO BEDTIME 10/28/22 06/07/23 History tablet,extended release (Tylenol Arthritis Pain) biotin 10 mg tablet 10 mg PO DAILY 10/28/22 06/07/23 History famotidine 10 mg tablet 10 mg PO DAILY 10/28/22 06/07/23 History rosuvastatin 40 mg PO DAILY 10/28/22 06/07/23 History timolol 0.5 % eye drops 1 drp EYE-BOTH DAILY 10/28/22 06/07/23 History budesonide-formoterol HFA 80 See Rx Instructions .Route 04/13/23 06/07/23 Rx mcg-4.5 mcg/actuation aerosol .COMPLEX #10.2 grams inhaler (Symbicort) trazodone 100 mg tablet 100 mg PO BEDTIME PRN sleep #90 04/22/23 06/07/23 Rx tabs sodium,potassium,mag sulfates 17.5 See Rx Instructions PO .COMPLEX 04/25/23 06/07/23 Rx gram-3.13 gram-1.6 gram oral soln #354 mL (Suprep Bowel Prep Kit) Allergies Allergy/AdvReac Type Severity Reaction Status Date / Time lisinopril AdvReac Mild COUGH Verified 05/10/23 13:30 Exam Vital Signs (past 8 hours): - 06/07/23 07:07 Temperature 96.7 F L Pulse Rate 61 Respiratory Rate 16 Blood Pressure 129/74 Pulse Oximetry 97 Oxygen Delivery Method Room Air Oxygen Delivery Method Room Air Narrative Exam Narrative: General adult woman alert oriented no acute distress Chest nonlabored respiration Soft nontender nondistended Assessment & Plan Assessment and plan (1) Colon polyps: Status: Acute Assessment & Plan narrative: The patient requires colorectal screening and colonoscopy is recommended. Technical details were discussed. Risks, benefits, alternatives explained. Risks including but not limited to myocardial infarction, aspiration, bleeding, pain, missed lesion, incomplete examination, need for further radiographic studies, colonic perforation, and need for major abdominal surgery were discussed. All questions were answered to their satisfaction, and they are in agreement with this plan.
[2023-06-07 08:30] VITALS: BP 124/58; PULSE 60; RESP 12; TEMP 36; O2SAT 96
[2023-06-07 08:35] VITALS: BP 122/57; PULSE 60; RESP 12; O2SAT 97
--- NOTE | 2023-06-07 08:35 | PM.OP.COLON ---
Operative Date/Time/Diagnoses Date of procedure: 06/07/23 Time of procedure: 08:36 Pre-op diagnosis: Personal history of colonic polyps. Family history of colon cancer first-degree relative. Post-op diagnosis: same Procedure & Clinicians Study performed: Colonoscopy Same procedure as scheduled: Yes Indications: Personal history of colonic polyps. First-degree family member with colon cancer. Surgeon: Jesse Jain Procedure Notes Procedure in detail: The history and physical was performed/updated and the patient is ASA class is 2. The procedure was discussed in detail with the patient. Potential risks complications including infection, bleeding, missed diagnosis, perforation, need for surgery, and were explained. Their questions were answered and informed consent was obtained. Patient was brought to the procedure room and placed standard monitoring equipment. The patient's vital signs were monitored continuously throughout the entire procedure. Prior to starting time-out was performed. The patient was placed in the left lateral recumbent position. Procedural sedation was administered by anesthesia. Examination began with a thorough inspection of the perianal area there was no evidence of fissures, fistulae, external hemorrhoids or cutaneous malignancy. The colonoscopy scope was then placed into the anal canal and was advanced to the cecum, which was identified by the ileocecal valve, the appendiceal orifice and the confluence of the taenia. The scope was then slowly withdrawn examining colon thoroughly in all directions, irrigating it of any residual stool. No masses or polyps. Mild diverticulosis of the sigmoid colon. The patient tolerated the procedure well. They will be discharged once criteria are met. The prep was of good/excellent quality. The withdrawl time was 7 minutes. Specimen(s): none sent Impression: Normal colonoscopy Post-procedure Plan for aftercare: Likely no need for further colonoscopy unless symptomatic Disposition: same day surgery
[2023-06-07 08:40] VITALS: BP 151/64; PULSE 60; RESP 12; O2SAT 98
[2023-06-07 08:46] VITALS: BP 146/63; PULSE 60; RESP 22; O2SAT 98
== END 2023-06-07 08:53 | disposition home or self-care (01) ==
PROVIDERS: PCP Family Medicine; Referring Provider Surgery; Visit Provider Surgery
PROC: 0DJD8ZZ Inspection of Lower Intestinal Tract, Via Natural or Artificial Opening Endoscopic (ICD-10-PCS; CPT 45378; principal; 2023-06-07 08:00)
DX: Z12.11 Encounter for screening for malignant neoplasm of colon (principal); Z86.010 Personal history of colon polyps; Z80.0 Family history of malignant neoplasm of digestive organs; K57.30 Diverticulosis of large intestine without perforation or abscess without bleeding
CPT/HCPCS: G0105; J2704

== ENCOUNTER → 2024-01-30 11:05 | Outpatient (CLI) | payer OTHER, SELFPAY ==
[2018-06-13 10:06] VITALS: BMI 28.9
--- NOTE | 2024-01-30 | DI.CT.S_ITS ---
PROCEDURE: CT UPPER EXT LEFT ARTHROGRAM INDICATIONS: Impingement syndrome of left shoulder TECHNIQUE: After the intra-articular administration of 12 mL of dilute non-ionic contrast, 1-1.5 mm thick sections acquired from the acromioclavicular joint to the inferior scapula, with coronal and sagittal reformatting. For radiation dose reduction, the following was used: automated exposure control, adjustment of mA and/or kV according to patient size. COMPARISON: [facility], CR, XR SHOULDER 2+ VIEWS LEFT, 10/17/2023, 10:02. [facility], , [place] SHOULDER INJECTION MR/CT LT, 01/30/2024, 10:29. FINDINGS: Image quality: Excellent. Rotator cuff: There is predominantly intrasubstance tearing at the distal insertions of the supraspinatus tendon and anterior portion of the infraspinatus tendon. There is also perforation of the articular and bursal surfaces, with small amount of glenohumeral contrast material extending through the tear into the subacromial/subdeltoid bursa. No significant articular sided tearing of the teres minor or subscapularis tendons. Rotator cuff musculature is normal in bulk. Bones and joints: No acute osseous fracture. No full-thickness glenohumeral cartilage defect. Moderate degenerative changes are seen at the acromioclavicular joint. No intra-articular loose body is seen in the glenohumeral joint. Small amount of glenohumeral contrast material is seen within the subacromial/subdeltoid bursa. Included ribs are intact. Mild degenerative changes are seen in the spine. Soft tissues: Nondisplaced tearing is seen at the superior to anterior superior labrum with uptake of glenohumeral contrast material. Proximal biceps tendon appears normal within the intertubercular groove. Cardiac pacemaker is seen with pulse generator in the left chest and associated streak artifact. Included portions of the lung are clear. IMPRESSION: 1. Small full-thickness tear is seen at the distal supraspinatus insertion with a predominant intrasubstance component involving the supraspinatus tendon and the anterior fibers of the infraspinatus tendon, as well as focal perforation of articular and bursal surfaces. No tendon retraction is seen. Glenohumeral contrast material communicates with the subacromial/subdeltoid bursa. 2. Nondisplaced tearing of the superior to anterior superior labrum. 3. Moderate acromioclavicular joint osteoarthrosis. Approved by: Jaime Rea M.D. on 01/30/2024 at 14:55
--- NOTE | 2024-01-30 | DI.RAD.S_ITS ---
PROCEDURE: [place] SHOULDER INJECTION MR/CT LT INDICATIONS: shoulder arthrogram COMPARISON: [facility], CR, XR SHOULDER 2+ VIEWS LEFT, 10/17/2023, 10:02. TECHNIQUE: The indications, alternatives, benefits, risks, and complications of the procedure were explained to the patient. Written informed consent was obtained and placed in the chart. The shoulder was examined fluoroscopically and a site for needle placement chosen for entry into the glenohumeral joint from an anterior approach. The skin was prepped and draped in a sterile fashion, and 1% lidocaine infiltrated from skin down to joint capsule. A spinal needle was inserted into the glenohumeral joint, and a small amount of iodinated contrast media injected to confirm intra-articular placement of the needle tip. This was followed by approximately 12 mL of iodinated contrast. The needle was removed and a dressing was applied. The patient was given postprocedural instructions and sent to the CT suite for imaging. FINDINGS: A single fluoroscopic spot image demonstrates intra-articular location of injected iodinated contrast. IMPRESSION: Successful fluoroscopically guided administration of iodinated contrast solution into the shoulder joint for CT arthrogram. Approved by: Jaime Rea M.D. on 01/30/2024 at 14:35
[2024-01-30] MEDS: LIDOCAINE 1% 20 ML INJ (12:04)
== END ==
PROVIDERS: PCP Family Medicine; Referring Provider Orthopaedic Surgery; Visit Provider Orthopaedic Surgery
DX: M75.122 Complete rotator cuff tear or rupture of left shoulder, not specified as traumatic (principal); M19.012 Primary osteoarthritis, left shoulder; S43.492A Other sprain of left shoulder joint, initial encounter; M75.42 Impingement syndrome of left shoulder
CPT/HCPCS: 23350; 73040; 73200; 77002; Q9967

== ENCOUNTER → 2024-03-26 07:51 | Outpatient (CLI) | payer MEDICARE, SELFPAY ==
[2018-06-13 10:06] VITALS: BMI 28.9
--- NOTE | 2024-03-26 07:52 | DI.MG.S_ITS ---
BILATERAL DIGITAL SCREENING MAMMOGRAM 3D/2D WITH CAD: 03/26/2024 CLINICAL: Routine screening. Comparison is made to exams dated: 11/25/2018 mammogram, 02/28/2017 mammogram - [facility], and 06/20/2012 mammogram - [facility]. There are scattered areas of fibroglandular density in both breasts (category b / 25%-50% glandular tissue). Current study was also evaluated with a Computer Aided Detection (CAD) system. No significant masses, calcifications, or other findings are seen in either breast. There has been no significant interval change. IMPRESSION: NEGATIVE There is no mammographic evidence of malignancy. A 1 year screening mammogram is recommended. Based on the Tyrer Cuzick model (a risk assessment model) the patient's lifetime risk is 3.9% and her 10 year risk is 0.0%. According to the ACR, ACS, and NCCN guidelines, an annual breast MRI exam along with mammogram is recommended if the patient's lifetime risk is 20% or greater. This exam was interpreted at Station ID: [id number]. NOTE: For mammograms, a report in lay terms will be sent to the patient. Approximately 15% of breast malignancies will not be visualized mammographically. In the management of a palpable breast mass, a negative mammogram must not discourage biopsy of a clinically suspicious lesion. Electronically Signed By: Steven segovia/rohit:03/26/2024 12:22:09 letter sent: Normal Exam ACR BI-RADS Category 1: Negative 3341F
== END ==
PROVIDERS: PCP Nurse Practitioner; Referring Provider Nurse Practitioner; Visit Provider Nurse Practitioner
DX: Z12.31 Encounter for screening mammogram for malignant neoplasm of breast (principal); R92.323 Mammographic fibroglandular density, bilateral breasts
CPT/HCPCS: 77063; 77067

== ENCOUNTER → 2024-05-14 06:55 | Outpatient (CLI) | payer MEDICARE, SELFPAY ==
[2018-06-13 10:06] VITALS: BMI 28.9
[2024-05-14 08:00] LABS: Add Manual Diff / Slide Review NO; Basophils Absolute Auto 0 /uL (0-100); Basophils Percent Auto 0.8 % (0-2); Eosinophils Absolute Auto 200 /uL (0-450); Eosinophils Percent Auto 3.4 % (2-4); Hematocrit 35.8 % (36-46); Hemoglobin 12.2 g/dL (12.0-16.0); Lymphocytes Absolute Auto 500 /uL (1100-4500); Lymphocytes Percent Auto 9.2 % (25-40); Mean Corpuscular HGB Conc 34.2 % (30-36); Mean Corpuscular Volume 96.7 fL (80-100); Monocytes Absolute Auto 600 /uL (0-900); Monocytes Percent Auto 10.9 % (3-14); Neutrophils Absolute Auto 3800 /uL (1500-7000); Neutrophils Percent Auto 75.7 % (50-75); Platelet Count 191 X10^3/uL (150-400); Red Cell Distribution Width 14.6 % (11.6-14.8); White Blood Cell Count 5.1 X10^3/uL (4.5-11.0)
[2024-05-14 08:29] LABS: Alanine Aminotransferase 57 IU/L (<35); Albumin 4.2 g/dL (3.5-5.0); Albumin Globulin Ratio 1.6 (1.0-2.8); Alkaline Phosphatase 93 U/L (38-126); Aspartate Aminotransferase 49 IU/L (14-36); BUN Creatinine Ratio 23.4 (6-22); Bilirubin Total 0.6 mg/dL (0.2-1.3); Blood Urea Nitrogen 25 mg/dL (7-17); Calcium 9.1 mg/dL (8.4-10.2); Carbon Dioxide 27 mmol/L (22-32); Chloride 107 mmol/L (98-107); Cholesterol 186 mg/dL (140-199); Estimated Glomerular Filt Rate 53 mL/min (>60); Globulin 2.6 g/dL (1.7-4.1); Glucose 114 mg/dL (80-110); HDL Cholesterol 76 mg/dL (40-60); HEMOLYSIS < 15 (0-50); LDL Cholesterol Calculated 94 mg/dL (<100); Potassium 4.4 mmol/L (3.4-5.1); Sodium 139 mmol/L (137-145); Total Protein 6.8 g/dL (6.3-8.2); Triglycerides 78 mg/dL (35-150)
[2024-05-14 08:37] LABS: Free T3, Triiodothyronine Free 3.35 pg/mL (2.77-5.27); Free T4, Direct Thyroxine 1.13 ng/dL (0.78-2.19)
[2024-05-14 08:50] LABS: Thyroid Stimulating Hormone 2.32 uIU/mL (0.47-4.68)
[2024-05-14 16:42] LABS: Hep C Virus Ab w/Reflex Quant NEGATIVE s/c (NEGATIVE)
== END ==
LOC: LAB 06:57
PROVIDERS: PCP Nurse Practitioner; Referring Provider Internal Medicine Cardiovascular Disease; Visit Provider Internal Medicine Cardiovascular Disease
DX: E78.5 Hyperlipidemia, unspecified (principal); I10 Essential (primary) hypertension; F32.A Depression, unspecified; J44.9 Chronic obstructive pulmonary disease, unspecified; F41.9 Anxiety disorder, unspecified; M85.80 Other specified disorders of bone density and structure, unspecified site; G47.00 Insomnia, unspecified; R06.02 Shortness of breath; Z11.59 Encounter for screening for other viral diseases
CPT/HCPCS: 80053; 80061; 84439; 84443; 84481; 85025; 86803

== ENCOUNTER 2024-05-26 13:18 | Emergency (ER) | payer MEDICARE, SELFPAY ==
[2018-06-13 10:06] VITALS: BMI 28.9
[2024-05-26] VITALS (13 sets, daily range): BP systolic 132–193; BP diastolic 64–77; PULSE 70–107; RESP 16–33; TEMP 36.8; O2SAT 97–99; BMI 26.2
--- NOTE | 2024-05-26 13:31 | DI.RAD.S_ITS ---
PROCEDURE: XR CHEST 1V INDICATIONS: chest pain TECHNIQUE: One view of the chest was acquired. COMPARISON: [facility], CR, XR CHEST 1V, 01/21/2023, 15:17. FINDINGS: Surgical changes and devices: Left chest wall pacemaker leads are in the region of right atrium and right ventricle. Postsurgical changes are seen in right humeral neck. Lungs and pleura: Lungs are clear. No pleural effusions or pneumothorax. Mediastinum: Mediastinal contours appear normal. Heart size is normal. Bones and chest wall: No suspicious bony lesions. Overlying soft tissues appear unremarkable. IMPRESSION: No acute cardiopulmonary pathology. Dictated by: Volodymyr Guzman M.D. on 05/26/2024 at 14:30 Approved by: Volodymyr Guzman M.D. on 05/26/2024 at 14:31
--- NOTE | 2024-05-26 13:35 | EKG_ITS ---
[address] [address] [address], [place] [address] Test Date: 2024-05-26 Pat Name: Katya Mancilla Department: Room: Gender: Female Building Official: : 1945 Requested By: Order Number: [id number] Reading MD: Jeevan Guajardo MD Measurements Intervals [place] Rate: 79 P: 71 WI: 160 QRS: 75 QRSD: 146 T: 270 QT: 406 QTc: 465 Interpretive Statements Atrial sensed ventricualr paced rhythm Electronically Signed On 05-26-2024 22:35:10 PDT by Jeevan Guajardo MD
[2024-05-26 13:46] LABS: Add Manual Diff / Slide Review NO; Basophils Absolute Auto 0 /uL (0-100); Basophils Percent Auto 0.4 % (0-2); Eosinophils Absolute Auto 200 /uL (0-450); Hematocrit 35.8 % (36-46); Hemoglobin 12.2 g/dL (12.0-16.0); Lymphocytes Absolute Auto 1600 /uL (1100-4500); Lymphocytes Percent Auto 24.3 % (25-40); Mean Corpuscular HGB Conc 34.2 % (30-36); Mean Corpuscular Hemoglobin 32.6 PG (26-34); Mean Corpuscular Volume 95.1 fL (80-100); Monocytes Absolute Auto 700 /uL (0-900); Monocytes Percent Auto 10.2 % (3-14); Neutrophils Absolute Auto 4200 /uL (1500-7000); Neutrophils Percent Auto 62.1 % (50-75); Platelet Count 241 X10^3/uL (150-400); Red Blood Cell Count 3.76 X10^6/uL (4.0-5.2); Red Cell Distribution Width 13.6 % (11.6-14.8); White Blood Cell Count 6.8 X10^3/uL (4.5-11.0)
[2024-05-26] MEDS: ASPIRIN 81 MG CHEW TAB 324 MG PO (13:46)
[2024-05-26 14:04] LABS: Alanine Aminotransferase 53 IU/L (<35); Albumin 4.4 g/dL (3.5-5.0); Albumin Globulin Ratio 1.6 (1.0-2.8); Alkaline Phosphatase 82 U/L (38-126); Aspartate Aminotransferase 45 IU/L (14-36); BUN Creatinine Ratio 18.9 (6-22); Bilirubin Total 0.6 mg/dL (0.2-1.3); Blood Urea Nitrogen 18 mg/dL (7-17); Calcium 9.3 mg/dL (8.4-10.2); Carbon Dioxide 23 mmol/L (22-32); Chloride 108 mmol/L (98-107); Creatine Kinase 62 U/L (30-135); Estimated Glomerular Filt Rate > 60 mL/min (>60); Globulin 2.8 g/dL (1.7-4.1); Glucose 115 mg/dL (80-110); HEMOLYSIS < 15 (0-50); Lipase 141 U/L (23-300); Magnesium 2.4 mg/dL (1.6-2.3); Potassium 4.2 mmol/L (3.4-5.1); Sodium 138 mmol/L (137-145); Total Protein 7.2 g/dL (6.3-8.2)
--- NOTE | 2024-05-26 14:04 | ED.ARRPALP ---
HPI - Arrhythmia/Palpitations General Chief Complaint: Arrhythmia/Palpitations Stated Complaint: dizzy, low pulse rate, has pacemaker Time Seen by Provider: 05/26/24 13:35 Source: patient Mode of arrival: Ambulatory History of Present Illness HPI narrative: 79-year-old female. Has a pacemaker in place secondary to a second-degree heart block. Has been in place for 3-4 years. Over the past several months she has had quite a bit of difficulty with lightheadedness specifically with standing up. She was an appointment with her donor processor in the beginning of next week. She was not on anticoagulation. She was here today because she states that today her symptoms have been more persistent. No chest pain. No palpitations. No shortness of breath. She has not passed out. She states she checked her pulse at home with a pulse oximeter in his stated that her heart rate was persistently in the upper 30s. Any time of my evaluation when she was sitting on the bed she stated that she was not feeling lightheaded. Related Data Home Medications Medication Instructions Recorded Confirmed [ESTRIOL/PROGES] See Rx Instructions vaginal QWEEK 10/28/22 04/17/24 acetaminophen 650 mg 1,300 mg PO BEDTIME 10/28/22 04/17/24 tablet,extended release (Tylenol Arthritis Pain) biotin 10 mg tablet 10 mg PO DAILY 10/28/22 04/17/24 rosuvastatin 40 mg PO DAILY 10/28/22 04/17/24 timolol 0.5 % eye drops 1 drp EYE-BOTH DAILY 10/28/22 04/17/24 Previous Rx's Medication Instructions Recorded inhalational spacing device (E-Z #1 ea 05/10/18 Spacer) omeprazole 20 mg capsule,delayed 20 mg PO DAILY GERD #90 caps 12/13/23 release acyclovir 400 mg tablet 400 mg PO DAILY #90 tabs 04/17/24 albuterol sulfate 90 mcg/actuation 2 puff inhalation Q4-6H PRN 04/17/24 aerosol inhaler (Proventil HFA) Dyspnea #6.7 grams fluticasone furoate 100 1 inh inhalation Q24H #90 ea 04/17/24 mcg-vilanterol 25 mcg/dose inhalation powder (Breo Ellipta) meloxicam 15 mg tablet 15 mg PO DAILY #90 tabs 04/17/24 montelukast 10 mg tablet 10 mg PO BEDTIME #90 tabs 04/17/24 tramadol 50 mg tablet 50 mg PO Q8H PRN pain #90 tabs 04/17/24 trazodone 100 mg tablet 100 mg PO BEDTIME PRN sleep #90 04/17/24 tabs losartan 100 mg tablet (Cozaar) 100 mg PO DAILY #90 tabs 05/23/24 Allergies Allergy/AdvReac Type Severity Reaction Status Date / Time lisinopril AdvReac Mild COUGH Verified 05/26/24 13:32 Review of Systems Review of Systems Narrative: See HPI Patient History Medical History Noncompliance with CPAP treatment Shingles outbreak Premature atrial complexes Left bundle branch block Greater trochanteric bursitis of left hip Cervical somatic dysfunction Cranial somatic dysfunction Stiff neck Upper extremity somatic dysfunction Right anterior shoulder pain Chronic sacroiliac (SI) strain Colon polyps IZAGUIRRE (dyspnea on exertion) Hypoxia Lightheadedness Bilateral lower extremity edema Somatic dysfunction of lower extremity Sacral region somatic dysfunction Pelvic somatic dysfunction Segmental and somatic dysfunction of abdomen and other regions Lumbar region somatic dysfunction Pneumothorax (~2020) COPD (chronic obstructive pulmonary disease) (~2016) Depression (~2005) Anxiety Shoulder pain (~2008) Osteopenia Chronic back pain (~1979) Mumps (~1949) Measles (~1949) Herpes (~1989) Chicken pox (~1949) Vertigo (~2009) Glaucoma (~2019) Human papilloma virus (~1989) Genital warts (~1989) History of urinary incontinence (~2015) GERD (gastroesophageal reflux disease) (~2009) Diverticular disease (~2020) Second degree heart block (~2020) Chronic left shoulder pain Obstructive sleep apnea, adult (~07/21/21) Insomnia (~1989) Fragile skin Atrophic vaginitis Asthma, moderate persistent, well-controlled (10/15/15) Hyperlipidemia (02/22/13) Essential hypertension (02/22/13) Surgical History Anesthesia History of cataract removal with insertion of prosthetic lens (~2019) History of cardiac pacemaker in situ (~01/13/21) Status post vaginal hysterectomy (~2008) Family History Brother Diabetes mellitus Hypertension Obesity Father Colon cancer Mother History of heart disease Atrial fibrillation Platelet disorder Parkinson's disease Grandfather History of heart disease Grandmother Flu Grandfather History of heart disease Grandmother No problems noted. Family/Other Diabetes mellitus Hypertension Social History household members: spouse Smoking Status: Former smoker Tobacco: How many years used: 1 alcohol intake: current Smoking Status: Former smoker alcohol intake frequency: 0-2 drinks per day Alcohol type: wine Substance Use Type: does not use Exam Initial Vital Signs Initial Vital Signs: Vital Signs Temperature 98.2 F 05/26/24 13:32 Pulse Rate 85 05/26/24 13:32 Respiratory Rate 16 05/26/24 13:32 Blood Pressure 156/74 H 05/26/24 13:32 Pulse Oximetry 97 05/26/24 13:32 Oxygen Delivery Method Room Air 05/26/24 13:32 HENMT Head: normal to inspection and normocephalic Resp Effort & Inspection: normal respiratory effort Auscultation: clear to auscultation bilaterally Cardio Rate: regular rate Rhythm: regular rhythm Neuro General: patient alert, patient awake and moves all extremities Course Orders Ordered: ED Orders 05/26/24 13:31 XR chest 1V Stat EKG-12 Lead Stat 05/26/24 13:38 Complete Blood Count AUTO DIFF Stat Comprehensive Metabolic Panel Stat Lipase Stat Magnesium Stat NT-proBNP (BNP-Adult 18+) Stat Troponin & CK Cardiac Panel Stat Discontinued Medications Aspirin (Aspirin 81 Mg Chew Tab) 324 mg PO NOW ONE Stop: 05/26/24 13:32 Last Admin: 05/26/24 13:46 Dose: 324 mg Documented By: DANIEL Vital Signs Vital signs: Vital Signs - 8 hr 05/26/24 13:32 05/26/24 13:37 05/26/24 13:39 Temperature 98.2 F Pulse Rate 85 78 73 Respiratory Rate 16 33 H 30 H Blood Pressure 156/74 H Pulse Oximetry 97 98 98 Oxygen Delivery Method Room Air 05/26/24 13:39 05/26/24 14:00 05/26/24 14:01 Temperature Pulse Rate 76 77 Respiratory Rate 30 H 28 H Blood Pressure 162/72 H Pulse Oximetry 99 98 Oxygen Delivery Method 05/26/24 14:01 05/26/24 14:30 05/26/24 14:31 Temperature Pulse Rate 77 96 H Respiratory Rate 21 29 H Blood Pressure 193/77 H Pulse Oximetry 98 98 Oxygen Delivery Method 05/26/24 14:31 05/26/24 14:52 05/26/24 14:52 Temperature Pulse Rate 70 Respiratory Rate 20 Blood Pressure 132/64 162/72 H Pulse Oximetry 98 Oxygen Delivery Method 05/26/24 15:00 05/26/24 15:00 05/26/24 15:30 Temperature Pulse Rate 107 H 78 Respiratory Rate 26 H 25 H Blood Pressure 146/71 H Pulse Oximetry 98 99 Oxygen Delivery Method 05/26/24 15:31 05/26/24 15:31 05/26/24 16:00 Temperature Pulse Rate 78 75 Respiratory Rate 23 29 H Blood Pressure 141/65 H Pulse Oximetry 98 98 Oxygen Delivery Method 05/26/24 16:01 05/26/24 16:01 Temperature Pulse Rate 76 Respiratory Rate 27 H Blood Pressure 173/66 H Pulse Oximetry 98 Oxygen Delivery Method MDM - Arrhythmia/Palpitations Lab Data Attestation: I reviewed the patient's lab results. 05/26/24 13:38 05/26/24 13:38 Labs: Lab Results 05/26/24 Range/Units 13:38 WBC 6.8 (4.5-11.0) X10^3/uL RBC 3.76 L (4.0-5.2) X10^6/uL Hgb 12.2 (12.0-16.0) g/dL Hct 35.8 L (36-46) % MCV 95.1 (80-100) fL MCH 32.6 (26-34) PG MCHC 34.2 (30-36) % RDW 13.6 (11.6-14.8) % Plt Count 241 (150-400) X10^3/uL Neut % (Auto) 62.1 (50-75) % Lymph % (Auto) 24.3 L (25-40) % [place] % (Auto) 10.2 (3-14) % Eos % (Auto) 3.0 (2-4) % Baso % (Auto) 0.4 (0-2) % Neut # (Auto) 4200 (1453-4910) /uL Lymph # (Auto) 1600 (0749-5302) /uL [place] # (Auto) 700 (0-900) /uL Eos # (Auto) 200 (0-450) /uL Baso # (Auto) 0 (0-100) /uL Sodium 138 (137-145) mmol/L Potassium 4.2 (3.4-5.1) mmol/L Chloride 108 H (98-107) mmol/L Carbon Dioxide 23 (22-32) mmol/L BUN 18 H (7-17) mg/dL Creatinine 0.95 (0.52-1.04) mg/dL Estimated GFR > 60 (>60) mL/min BUN/Creatinine Ratio 18.9 (6-22) Glucose 115 H (80-110) mg/dL Calcium 9.3 (8.4-10.2) mg/dL Magnesium 2.4 H (1.6-2.3) mg/dL Total Bilirubin 0.6 (0.2-1.3) mg/dL AST 45 H (14-36) IU/L ALT 53 H (<35) IU/L Alkaline Phosphatase 82 (38-126) U/L Total Creatine Kinase 62 (30-135) U/L Troponin I < 0.012 (0.01-0.034) ng/mL NT-Pro-B Natriuret Pep 348 (<450) pg/mL Total Protein 7.2 (6.3-8.2) g/dL Albumin 4.4 (3.5-5.0) g/dL Globulin 2.8 (1.7-4.1) g/dL Albumin/Globulin Ratio 1.6 (1.0-2.8) Lipase 141 (23-300) U/L Imaging Data Chest x-ray: Radiologist's Impresson: PROCEDURE: XR CHEST 1V INDICATIONS: chest pain TECHNIQUE: One view of the chest was acquired. COMPARISON: [facility], , XR CHEST 1V, 01/21/2023, 15:17. FINDINGS: Surgical changes and devices: Left chest wall pacemaker leads are in the region of right atrium and right ventricle. Postsurgical changes are seen in right humeral neck. Lungs and pleura: Lungs are clear. No pleural effusions or pneumothorax. Mediastinum: Mediastinal contours appear normal. Heart size is normal. Bones and chest wall: No suspicious bony lesions. Overlying soft tissues appear unremarkable. IMPRESSION: No acute cardiopulmonary pathology. ECG Data Attestation: I personally reviewed and interpreted this ECG as follows: Interpretation: Sinus rhythm Ventricular rate is 79 Av dual paced complexes Frequent PVCs in bigeminy pattern Left bundle-branch block No ST T wave changes MDM Narrative Medical decision making narrative: Patient does have a [employer] pacemaker. He was interrogated here in the emergency department. Patient has had no new events. She does have frequent PVCs and bigeminy pattern. All testing is stable. Electrolytes unremarkable. Chest x-ray is unremarkable. I suspect that the patient's pulse oximeter at home has been picking up on the PVCs which is showing what she was bradycardic. Unsure of the exact etiology of the patient's lightheadedness but low suspicion for ACS, bradycardia, hypotension or CVA/TIA. Patient has a follow-up with a donor processor in 48 hours. Recommended that she keep that appointment. She was given return precautions. She expressed understanding and agreement. Discharge Plan Departure Patient Disposition: Home Clinical Impression: Dizziness, Frequent PVCs Instructions: DI for Dizziness-Nonvertigo Activity Restrictions/Additional Instructions: Recommend that you continue to take all of your medications as directed. Keep your scheduled appointment with your primary donor processor that you have scheduled on Tuesday. Return to the emergency department for new or worsening symptoms. Prescriptions: No Action rosuvastatin 40 mg PO DAILY (DME) inhalational spacing device [E-Z Spacer] spacer See Dose Instructions .ROUTE .MEDSUPPLY Qty: 1 0RF Dose Instruction: As directed Rx Instructions: As directed losartan [Cozaar] 100 mg tablet 100 mg PO DAILY Qty: 90 0RF montelukast 10 mg tablet 10 mg PO BEDTIME Qty: 90 3RF albuterol sulfate [Proventil HFA] 90 mcg/actuation HFA aerosol inhaler 2 puff inhalation Q4-6H PRN (Reason: Dyspnea) Qty: 6.7 3RF fluticasone furoate-vilanterol [Breo Ellipta] 100-25 mcg/dose blister with device 1 inh inhalation Q24H Qty: 90 3RF acyclovir 400 mg tablet 400 mg PO DAILY Qty: 90 3RF meloxicam 15 mg tablet 15 mg PO DAILY Qty: 90 3RF tramadol 50 mg tablet 50 mg PO Q8H PRN (Reason: pain) Qty: 90 1RF Rx Instructions: EXEMPT trazodone 100 mg tablet 100 mg PO BEDTIME PRN (Reason: sleep) Qty: 90 2RF Rx Instructions: Take 1 tab at bedtime as needed for sleep timolol 0.5 % drops 1 drp EYE-BOTH DAILY biotin 10 mg tablet 10 mg PO DAILY acetaminophen [Tylenol Arthritis Pain] 650 mg tablet extended release 1,300 mg PO BEDTIME [ESTRIOL/PROGES] See Rx Instructions vaginal QWEEK Rx Instructions: 1mg/8mg suppository vaginally every week; omeprazole 20 mg capsule,delayed release(DR/EC) 20 mg PO DAILY Qty: 90 3RF Referrals: Luly Laguna ARNP [Primary Care Provider] - Stand Alone Forms: Patient Portal/API
[2024-05-26 14:15] LABS: NT-proBNP (BNP-Adult 18+) 348 pg/mL (<450); Troponin I < 0.012 ng/mL (0.01-0.034)
--- NOTE | 2024-05-26 14:45 | PC.NURSE ---
Pt reports syncopal episode around 1100; witnessed. Pt states she was suppose to see nut culler for abnormal heart rhythm but has not been able to get into him for months'
== END 2024-05-26 16:34 | disposition home or self-care (01) ==
PROVIDERS: Emergency Provider Emergency Medicine; PCP Nurse Practitioner
DX: R42 Dizziness and giddiness (principal); I49.3 Ventricular premature depolarization; Z95.0 Presence of cardiac pacemaker
CPT/HCPCS: 36415; 71045; 80053; 82550; 83690; 83735; 83880; 84484; 85025; 93005; 99284

== ENCOUNTER → 2024-06-06 09:46 | Outpatient (CLI) | payer MEDICARE, SELFPAY ==
[2018-06-13 10:06] VITALS: BMI 28.9
== END ==
PROVIDERS: PCP Nurse Practitioner; Referring Provider Nurse Practitioner; Visit Provider Nurse Practitioner
DX: R06.02 Shortness of breath (principal); J44.9 Chronic obstructive pulmonary disease, unspecified; J45.40 Moderate persistent asthma, uncomplicated; R94.2 Abnormal results of pulmonary function studies
CPT/HCPCS: 94060; 94726; 94729

== ENCOUNTER → 2024-09-20 12:17 | Outpatient (CLI) | payer MEDICARE, SELFPAY ==
[2018-06-13 10:06] VITALS: BMI 28.9
[2024-06-12 14:58] VITALS: BMI 28.9
--- NOTE | 2024-09-20 12:18 | DI.ECHO.S_ITS ---
[facility] : : [id number] : : [id number] : : Phone: [phone] Echocardiogram Report + + :Name: NICOLE HUSTON Study Date: 09/20/2024 Height: 62 in : :[facility] ReadingLocation: Weight: 143 lb: : Gender: Female BSA: 1.7 m2 : :: 1945 Age: 79 yrs : :Reason For Study: VENTRICULAR TACHYCARDIA : :Ordering Physician: DEVAN, : :JANICE Performed By: Asael Tsai : :Referring: JANICE GRAJEDA : + + Interpretation Summary 1) Normal left ventricular thickness and size with low normal systolic function (EF 50-55%). 2) Normal right ventricular size and function. There is a pacemaker lead in the right ventricle. 3) There is mild mitral regurgitation. 4) There is mild tricuspid regurgitation. 5) Compared to the Echo done 05/12/2023, no significant change. Procedure: A two-dimensional transthoracic echocardiogram with color flow and Doppler was performed. The study quality was technically good. Comparison is made with the echocardiogram of 05/12/2023. The heart rate ranged between 65-83 bpm during the study. Left Ventricle: The left ventricle is normal in size. Left ventricular wall thickness is normal. Proximal septal thickening is noted. There is no ventricular septal defect visualized. The ejection fraction is estimated to be 50-55%. There are no focal wall motion abnormalities. Right Ventricle: The right ventricle is normal in size and function. There is a pacemaker lead in the right ventricle. Atria: The left atrium is mildly dilated. Right atrial size is normal. There is no Doppler evidence for an atrial septal defect. Mitral Valve: There is mild mitral annular calcification. The mitral valve leaflets appear mildly thickened, but open well. There is mild mitral regurgitation. Aortic Valve: The aortic valve is not well visualized. There is mild aortic valve sclerosis. There is no aortic valve stenosis. No aortic regurgitation is present. Tricuspid Valve: The tricuspid valve is normal in structure and function. There is mild tricuspid regurgitation. The right ventricular systolic pressure is estimated to be at least 28 mmHg based on an estimated right atrial pressure of 3 mm Hg. Pulmonic Valve: The pulmonic valve is normal in structure and function. There is no pulmonic valvular regurgitation. Great Vessels: The aortic root is normal size. The dimensions of the ascending aorta are normal. The pulmonary artery is normal size. The IVC is of normal diameter and collapses greater than 50% with a sniff. This suggests a low right atrial pressure of 3 mm Hg. Pericardium/ Pleura There is no pericardial effusion. There is no pleural effusion. MMode/2D Measurements & Calculations LVIDd: 5.2 cm LVOT diam: 1.9 cm LVIDs: 3.4 cm Ao root diam: 2.9 cm FS: 33.5 % asc Aorta Diam: 3.4 cm EPSS: 0.59 cm Ao Arch Diam (Prox Trans): 2.5 cm IVSd: 1.2 cm LVPWd: 1.00 cm LV sosa. diameter/BSA (cm/m^2): 3.1 LV sys. diameter/BSA (cm/m^2): 2.1 LA A2 area: 20.2 cm2 RA long axis: 4.7 cm LA A4 area: 18.5 cm2 RA area: 15.7 cm2 LA length (vol): 5.4 cm RA vol: 44.5 ml LA vol: 59.0 ml RA : 26.9 ml/m2 LA vol index: 35.6 ml/m2 IVC diam: 2.0 cm RVD1 (basal): 3.8 cm RVD2 (mid): 2.9 cm TAPSE: 1.7 cm Doppler Measurements & Calculations Ao V2 max: 174.9 cm/sec LVOT Max Miguel: 134.7 cm/sec Ao V2 mean: 124.0 cm/sec LV V1 max P.3 mmHg Ao max P.2 mmHg LV V1 VTI: 29.3 cm Ao mean P.8 mmHg IVAN(I,D): 2.1 cm2 Ao V2 VTI: 39.2 cm IVAN(V,D): 2.2 cm2 sev ratio: 0.75 IVAN indexed to BSA (cm^2/m^2): 1.3 MV E max miguel: 115.7 cm/sec TR max miguel: 249.4 cm/sec MV A max miguel: 19.8 cm/sec TR max P.9 mmHg MV E/A: 5.8 MV dec time: 0.11 sec SV(LVOT): 83.7 ml Reading Physician:03:49 PM
== END ==
PROVIDERS: PCP Nurse Practitioner; Referring Provider Internal Medicine Cardiovascular Disease; Visit Provider Internal Medicine Cardiovascular Disease
DX: I47.29 Other ventricular tachycardia (principal); I49.3 Ventricular premature depolarization; I08.3 Combined rheumatic disorders of mitral, aortic and tricuspid valves
CPT/HCPCS: 93306

== ENCOUNTER → 2025-05-20 06:59 | Outpatient (CLI) | payer MEDICARE, SELFPAY ==
[2024-06-12 14:58] VITALS: BMI 28.9
[2025-05-20 07:40] LABS: Hematocrit 35.7 % (36-46); Hemoglobin 12.6 g/dL (12.0-16.0); Mean Corpuscular HGB Conc 35.3 % (30-36); Mean Corpuscular Hemoglobin 34.3 PG (26-34); Mean Corpuscular Volume 97.1 fL (80-100); Platelet Count 214 X10^3/uL (150-400)
[2025-05-20 08:04] LABS: Cholesterol 194 mg/dL (140-199); HDL Cholesterol 78 mg/dL (40-60); Triglycerides 89 mg/dL (35-150)
[2025-05-20 08:05] LABS: Alanine Aminotransferase 30 IU/L (<35); Albumin 4.3 g/dL (3.5-5.0); Albumin Globulin Ratio 1.8 (1.0-2.8); Alkaline Phosphatase 52 U/L (38-126); Blood Urea Nitrogen 20 mg/dL (7-17); Calcium 9.4 mg/dL (8.4-10.2); Carbon Dioxide 25 mmol/L (22-32); Chloride 106 mmol/L (98-107); Estimated Glomerular Filt Rate > 60 mL/min (>60); Globulin 2.4 g/dL (1.7-4.1); Glucose 115 mg/dL (70-99); HEMOLYSIS < 15 (0-50); Potassium 4.3 mmol/L (3.4-5.1); Sodium 137 mmol/L (137-145); Total Protein 6.7 g/dL (6.3-8.2)
[2025-05-20 08:19] LABS: Protein (Total) Urine Random < 5 mg/dL (0-12); Protein Creatinine Ratio Urine 0.06 GRAM/24H
== END ==
PROVIDERS: PCP Family Medicine; Referring Provider Internal Medicine Cardiovascular Disease; Visit Provider Internal Medicine Cardiovascular Disease
DX: I10 Essential (primary) hypertension (principal); E78.01 Familial hypercholesterolemia; R06.09 Other forms of dyspnea; E78.5 Hyperlipidemia, unspecified; I44.1 Atrioventricular block, second degree; I44.2 Atrioventricular block, complete
CPT/HCPCS: 36415; 80053; 80061; 82570; 84156; 85027

== ENCOUNTER → 2025-09-21 08:55 | Outpatient (CLI) | payer MEDICARE, SELFPAY ==
[2024-06-12 14:58] VITALS: BMI 28.9
[2025-09-21 11:34] LABS: Hemoglobin A1C% w Est Avg Glu 5.7 % (4.0-6.0)
[2025-09-21 12:15] LABS: TSH w/ Reflex to FT4 1.51 uIU/mL (0.47-4.68)
[2025-09-21 12:37] LABS: Vitamin B12 Reflex MMA if <400 427 pg/mL (239-931)
== END ==
PROVIDERS: Family Provider Family Medicine; PCP Family Medicine; Referring Provider Family Medicine; Visit Provider Family Medicine
DX: E03.9 Hypothyroidism, unspecified (principal); R73.9 Hyperglycemia, unspecified; G62.9 Polyneuropathy, unspecified; E53.8 Deficiency of other specified B group vitamins
CPT/HCPCS: 36415; 82607; 83036; 84443

== ENCOUNTER 2025-10-01 09:45 | Outpatient (RCR) | payer MEDICARE, SELFPAY ==
[2024-06-12 14:58] VITALS: BMI 28.9
--- NOTE | 2025-09-24 11:10 | ST.OPIE ---
Visit Care Team Role Provider Type Grace Camarena DO Attending Provider Physician Family Provider Primary Care Provider Referring Provider Specialty: Medical Address: [address] [place] [address], [address], [place], [address] Email: [email or web address] Speech-Language Pathology Initial Evaluation PRODUCTION CONTROL SCHEDULER Adult Cognitive Linguistic Eval Start: 09/24/25 10:39 Freq: Status: Active Protocol: Document 09/24/25 10:39 MA (Rec: 09/24/25 11:10 MA Desktop) Adult Cognitive Linguistic Evaluation Session Time Visit Start Time 09:00 Visit Stop Time 09:45 Total Visit Minutes 45 Visit Information Visit Number Initial Eval Plan of Care Dates 09/24/25-12/25/25 Insurance [facility] Medicare Information Referral Referring Provider Dr. Grace Camarena Reason for Referral Cognitive function and awareness Setting Assessment Location Outpatient Care Visit Type Note Type Initial evaluation Next Note Type Next Note Type Treatment Note Patient Information Identification Type Name Patient History Pt is a 80 year old female seen this date for cognitive /linguistic eval at the referral of Dr. Camarena. Pt reports she has had memory and word finding difficulties for the past few years that have been getting progressively worse. She reports she can't express herself and is withdrawing from social settings due to it. She reports she doesn't forget her appointments, but has difficulties with recalling some of her friends names, and numbers. She states she can recall medications and doing daily life tasks. She reports she stays pretty active and busy by baking, playing the violin, walking, playing cribbage and other games. She reports great frustration and fear with her memory issues, not knowing if it is turning into dementia or Alzheimer's. She denies history of this in her family. She reports she would like to learn tools and strategies to improve her memory. Hearing Hearing Level Normal Vision Vision Status Impaired Comments Wears glasses Previous Therapy Previous Speech- No Language Therapy Subjective Patient Report Pt is retired and lives with her . She used to work as a nurse. Mental Status Alert,Responsive,Cooperative Informal Assessment Receptive Language Yes Normal Expressive Language Yes Normal Pragmatic Language Yes Normal Speech Normal Yes Cognition Normal Yes Formal Assessment Standardized Test/ Cognitive Linguistic Quick Test (CLQT) Screener Type Administration Complete Results ST administered Cognitive Linguistic Quick Test (CLQT) with Pt scoring a total score of 4 indicating a severity rating of WNL for her age. Areas tested included, attention, memory, executive functions, language, visuospatial skills, and clock drawing, which Pt scored all WNL. She scored on the lower end of the range for memory and language. 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 ST is warranted in order to educate and teach Pt in internal and external memory compensatory strategies. Cognitive Communication Deficits Self-awareness of Predictive awareness (able to predict problem; impact Cognitive- of impairments) Communication Deficits Prognosis Prognosis Good Plan of Care Speech-Language Yes Treatment Frequency 1x/week Duration 2-3 visits Patient/Caregiver Described results of evaluation,Patient expressed Education understanding of evaluation,Patient expressed agreement with goals and treatment plans,Patient requires further education/training Short Term Goals STG 1: The patient will demonstrate use of association, chunking, visual imagery, and rehearsal strategies to recall 4?5 units of novel information with minimal verbal cues in 3 consecutive sessions. STG 2: The patient will recall functional information ( e.g., appointment details, medication schedule) using internal strategies with 80% accuracy following a 10?15 minute delay. STG 3: The patient will utilize external memory aids (e .g., written reminders, smartphone alerts, calendars, checklists) to complete daily or therapy-related tasks with 80% accuracy and minimal cues. STG 4: The patient will demonstrate ability to independently set up and use a memory aid (e.g., enter appointment in phone calendar, write note in associate financial planner) with 90% accuracy in 3/4 opportunities. STG 5: The patient will identify 3?5 external strategies that are most effective for home/work routines and describe how to implement them with minimal clinician support. Senior Care Goals The patient will independently use internal and external memory compensatory strategies to recall and manage daily information and tasks with 90% accuracy across functional settings.
--- NOTE | 2025-09-24 11:10 | ST.OPPOC ---
Physical, Occupational & Speech Therapy At [facility] Visit Care Team Role Provider Type Grace Camarena DO Attending Provider Physician Family Provider Primary Care Provider Referring Provider Address: [address], [place], [address] Speech Pathology Plan of Care Plan of Care Dates 09/24/25-12/25/[address] Grace Camarena Patient History Pt is a 80 year old female seen this date for cognitive/linguistic eval at the referral of Dr. Camarena. Pt reports she has had memory and word finding difficulties for the past few years that have been getting progressively worse. She reports she can't express herself and is withdrawing from social settings due to it. She reports she doesn't forget her appointments, but has difficulties with recalling some of her friends names, and numbers. She states she can recall medications and doing daily life tasks. She reports she stays pretty active and busy by baking, playing the violin, walking, playing cribbage and other games. She reports great frustration and fear with her memory issues, not knowing if it is turning into dementia or Alzheimer's. She denies history of this in her family. She reports she would like to learn tools and strategies to improve her memory. Self-awareness of Cognitive- Predictive awareness (abl Communication Deficits Short Term Goals STG 1: The patient will demonstrate use of association, chunking, visual imagery, and rehearsal strategies to recall 4?5 units of novel information with minimal verbal cues in 3 consecutive sessions. STG 2: The patient will recall functional information (e.g., appointment details, medication schedule) using internal strategies with 80% accuracy following a 10?15 minute delay . STG 3: The patient will utilize external memory aids (e.g., written reminders, smartphone alerts , calendars, checklists) to complete daily or therapy-related tasks with 80% accuracy and minimal cues. STG 4: The patient will demonstrate ability to independently set up and use a memory aid (e.g., enter appointment in phone calendar, write note in exercise planner) with 90% accuracy in 3/4 opportunities. STG 5: The patient will identify 3?5 external strategies that are most effective for home/work routines and describe how to implement them with minimal clinician support. Detention Goals The patient will independently use internal and external memory compensatory strategies to recall and manage daily information and tasks with 90% accuracy across functional settings. Comment: Electronically Signed by: GAGE Winston 09/24/25 9102 If you are in agreement with this Plan of Care, please return a signed and dated copy. I have reviewed this Plan of Care and certify that the skilled therapy services above are required to meet the patient?s needs. Physician Signature Date Printed Name and Credentials Clinical Instructor Signature Printed Name and Credentials
--- NOTE | 2025-10-01 10:39 | ST.OPDS ---
Visit Care Team Role Provider Type Grace Camarena DO Attending Provider Physician Family Provider Primary Care Provider Referring Provider Address: [address] [place] [address], [address], [place], [address] DIRECTOR BIOSTATISTICS Treatment Note DIRECTOR BIOSTATISTICS Treatment Note Start: 10/01/25 10:32 Freq: Status: Active Protocol: Document 10/01/25 10:33 MA (Rec: 10/01/25 10:39 MA Desktop) Speech Pathology Treatment Note Session Time Visit Start Time 09:45 Visit Stop Time 10:15 Total Visit Minutes 30 Visit Information Visit Number 2 Plan of Care Dates 09/24/25-12/25/25 Setting Treatment Setting Outpatient Care Next Note Type Next Note Type Discharge Summary General Information Patient History Pt is a 80 year old female seen this date for cognitive /linguistic eval at the referral of Dr. Camarena. Pt reports she has had memory and word finding difficulties for the past few years that have been getting progressively worse. She reports she can't express herself and is withdrawing from social settings due to it. She reports she doesn't forget her appointments, but has difficulties with recalling some of her friends names, and numbers. She states she can recall medications and doing daily life tasks. She reports she stays pretty active and busy by baking, playing the violin, walking, playing cribbage and other games. She reports great frustration and fear with her memory issues, not knowing if it is turning into dementia or Alzheimer's. She denies history of this in her family. She reports she would like to learn tools and strategies to improve her memory. Subjective Identification Type Name Observations/Patient Pt arrived on time to therapy. Presentation Objective Short Term Goals STG 1: The patient will demonstrate use of association, chunking, visual imagery, and rehearsal strategies to recall 4?5 units of novel information with minimal verbal cues in 3 consecutive sessions.- MET STG 2: The patient will recall functional information ( e.g., appointment details, medication schedule) using internal strategies with 80% accuracy following a 10?15 minute delay.- NOT TARGETED STG 3: The patient will utilize external memory aids (e .g., written reminders, smartphone alerts, calendars, checklists) to complete daily or therapy-related tasks with 80% accuracy and minimal cues.- MET STG 4: The patient will demonstrate ability to independently set up and use a memory aid (e.g., enter appointment in phone calendar, write note in mission planner) with 90% accuracy in 3/4 opportunities.- MET STG 5: The patient will identify 3?5 external strategies that are most effective for home/work routines and describe how to implement them with minimal clinician support.- MET Intermediate Goals The patient will independently use internal and external memory compensatory strategies to recall and manage daily information and tasks with 90% accuracy across functional settings.- MET Treatment Activities ST provided handouts and education on internal and external memory strategies, including guidance on how to implement these strategies effectively in the patient?s daily routines and functional activities. Assessment Patient Response to Excellent Treatment Rehab Potential Excellent Impairments Cognitive communication Identified Progress Towards Appropriate for Discharge Goals Assessment of ST provided the patient with education on internal and Improvement external memory strategies. The patient practiced internal memory strategies (e.g., chunking, word association) with 100% accuracy. She reported that for external memory supports, she regularly uses a calendar , written lists, and a pillbox, and noted that she does not prefer using technology-based tools. ST educated the patient on the importance of engaging in new tasks and hobbies to promote brain stimulation. The patient shared that she is learning knitting and enjoys staying busy and active. ST also provided education on the [facility] quarterly memory screenings. The patient verbalized understanding and stated that she received helpful information during the session. She expressed a desire to discharge from therapy at this time. ST recommended that the patient continue practicing internal memory strategies independently and maintain use of her external memory aids. Reviewed with Goals,Progress Being Made,Home Exercise Program Patient Plan Frequency of No Further Therapy Treatment
== END 2025-10-02 08:01 | disposition home or self-care (01) ==
LOC: SP 09:45
PROVIDERS: Family Provider Family Medicine; PCP Family Medicine; Referring Provider Family Medicine; Visit Provider Family Medicine
DX: R41.89 Other symptoms and signs involving cognitive functions and awareness (principal)
CPT/HCPCS: 92507; 92523